=== PATIENT | male | born 1945 | race Hispanic/Latino ===

== ENCOUNTER 2018-04-24 11:29 | Inpatient (IN) | payer MEDICARE, BC ==
[2018-04-24] MEDS ORDERED: Sodium Chloride 0.9% 1,000 ML IV STA (11:39)
[2018-04-24] MEDS ORDERED: cefTRIAXone 1 gm 1 GM/100 ML BAG IVPB STA (11:40)
--- NOTE | 2018-04-24 11:46 | ED PDOC ---
Arrival/HPI - General Time Seen by Provider: 04/24/18 11:34 Historian: EMS - History of Present Illness Narrative History of Present Illness (Text): 04/24/18 11:40 72 year old male, whose PMH includes CVA x3, coronary stents, and diabetes, who is brought in to the emergency department via EMS, s/p being noted for having generalized confusion by . Per EMS, patient was on his normal state at 5 AM , but the reports he was getting more confused as time passed. EMS also notes patient has no slurred speech, but was positive for generalized confusion and inappropriate words. upon arrival, pt noted to be febrile, responds to some questions approrpirately. no focal deficit noted. 04/25/18 11:06 Time/Duration: Prior to Arrival Symptom Onset: Sudden Symptom Course: Worsening Context: Home Past Medical History - Provider Review Nursing Documentation Reviewed: Yes - Tetanus Immunization Tetanus Immunization: Unknown - Cardiac Hx Cardiac Disorders: Yes - Pulmonary Hx Respiratory Disorders: No Hx Asthma: No Hx Bronchitis: No Hx Chronic Obstructive Pulmonary Disease (COPD): No Hx Emphysema: No Hx Pneumonia: No Hx Respiratory Aspiration: No Hx Respiratory Tract Infection: No Hx Sleep Apnea: No - Neurological Hx Neurological Disorder: Yes (syncope) HX Cerebrovascular Accident: Yes (September 2012) Other/Comment: x3 cva's last one 2013 - HEENT Hx HEENT Disorder: No Hx Blind: No Hx Cataracts: No Hx Deafness: No Hx Difficulty Chewing: No Hx Epistaxis: No Hx Glaucoma: No Hx Macular Degeneration: No - Renal Hx Renal Disorder: No Hx Dialysis: No Hx Kidney Stones: No Hx Neurogenic Bladder: No Hx Pyelonephritis: No Hx Renal Cancer: No Hx Renal Failure: No - Endocrine/Metabolic Hx Diabetes Mellitus Type 2: Yes - Hematological/Oncological Hx Blood Disorders: No Hx AIDS: No Hx Anemia: No Hx Cancer: No Hx Chemotherapy: No Hx Cirrhosis: No Hx Hepatitis A: No Hx Hepatitis B: No Hx Hepatitis C: No Hx Metastasis: No Hx Shingles: No Hx Unexplained Bleeding: No - Integumentary Hx Dermatological Disorder: No Hx Basal Cell Carcinoma: No Hx Eczema: No Hx Melanoma: No Hx Psoriasis: No Hx Squamous Cell Carcinoma: No Other/Comment: Scars noted on chest - Musculoskeletal/Rheumatological Hx Falls: Yes (in the past) - Gastrointestinal Hx Gastrointestinal Disorders: Yes Hx Colostomy: No Hx Crohn's Disease: No Hx Diverticulitis: No Hx Gall Bladder Disease: No Hx Gastroesophageal Reflux: Yes Hx Gastrointestinal Ulcer: Yes Hx Ileostomy: No Hx Liver Failure: No Hx Pancreatitis: No HX Swallowing Problems: No - Genitourinary/Gynecological Hx Genitourinary Disorders: Yes Hx Hematuria: No Hx Incontinence: Yes Hx Prostate Problems: Yes (bph cysto 06/2013) Hx Sexually Transmitted Diseases: No Hx Urinary Tract Infection: No - Psychiatric Hx Anxiety: Yes Hx Emotional Abuse: No Hx Physical Abuse: No Hx Substance Use: No - Surgical History Hx Coronary Stent: Yes (ptca 2000) Other/Comment: left knee sx shatered left patella 01/2013 pt had passed out and landed on his left knee as per kavya scott green light laser 04/05/2014 - Anesthesia Hx Anesthesia Reactions: No Hx Malignant Hyperthermia: No - Suicidal Assessment Feels Threatened In Home Enviroment: No Family/Social History Family/Social History: Unknown Family HX Smoking Status: Former Smoker Hx Alcohol Use: No Hx Substance Use: No Hx Substance Use Treatment: No Allergies/Home Meds Allergies/Adverse Reactions: Allergies No Known Allergies Allergy (Verified 04/24/18 11:53) Home Medications: Home Meds Medication Instructions Recorded Confirmed Celecoxib [Celebrex] 200 mg PO DAILY 12/28/12 04/24/18 Simvastatin 40 mg PO DAILY 01/04/13 04/24/18 Cyclobenzaprine HCl [Flexeril] 10 mg PO DAILY 04/04/14 04/24/18 Escitalopram [Lexapro] 10 mg PO DAILY 04/04/14 04/24/18 Tamsulosin [Flomax] 0.4 mg PO DAILY 04/04/14 04/24/18 Aspirin [Ecotrin] 81 mg PO DAILY 12/24/15 04/24/18 Clopidogrel [Plavix] 75 mg PO DAILY 12/24/15 04/24/18 Dutasteride [Avodart] 0.5 mg PO DAILY 12/24/15 04/24/18 Vitamin E [Vitamin E] 400 iu PO DAILY 12/24/15 04/24/18 Metoprolol Tartrate [Lopressor] 12.5 mg PO DAILY 01/16/16 04/24/18 Multivitamin/Iron/Folic Acid 1 tab PO DAILY 06/18/18 06/18/18 [Centrum Adults Tablet] Review of Systems - Review of Systems Systems not reviewed;Unavailable: Altered Mental Status Physical Exam Vital Signs Reviewed: Yes Vital Signs Temp Pulse Resp BP Pulse Ox 04/24/18 16:46 86 18 140/87 99 04/24/18 16:38 102.6 F H 04/24/18 16:29 84 19 141/64 95 04/24/18 16:05 103.2 F H 04/24/18 15:41 103.2 F H 04/24/18 14:07 99.7 F H 80 21 163/81 H 96 04/24/18 12:42 101.5 F H 04/24/18 11:54 70 19 94 L 04/24/18 11:47 101.5 F H 74 18 141/84 96 Temperature: Febrile Blood Pressure: Normal Pulse: Regular Respiratory Rate: Normal Appearance: Positive for: Non-Toxic Pain Distress: None Finger Stick Blood Glucose: 218 - Systems Exam Head: Present: Atraumatic, Normocephalic Pupils: Present: PERRL Extroacular Muscles: Present: EOMI Conjunctiva: Present: Normal Medical Decision Making ED Course and Treatment: 04/24/18 Impression: sepsis/ams Plan: -- EKG -- CT Head -- Chest X-ray --Labs -- Ceftraxone -- Urinalysis -- Reassess and disposition Progress Notes: EKG: Ordered, reviewed, and independently interpreted the EKG. Rate : 71 BPM Rhythm : NSR Interpretation : RBBB 04/24/18 12:20 Chest X-ray: Creator : Hank Mcdonnell MD COMPARISON: 01/20/2016 FINDINGS: LUNGS: No active pulmonary disease.PLEURA:No significant pleural effusion identified, no pneumothorax apparent. CARDIOVASCULAR: Normal. OSSEOUS STRUCTURES: No significant abnormalities. VISUALIZED UPPER ABDOMEN: Normal. OTHER FINDINGS: None. IMPRESSION: No active disease. 04/24/18 14:[address]: Creator : Hank Mcdonnell MD FINDINGS: HEMORRHAGE: No intracranial hemorrhage. BRAIN: No mass effect or edema. There is an old lacunar infarct in the right basal ganglia measuring 4 x 11 mm VENTRICLES: Unremarkable. No hydrocephalus. CALVARIUM: Unremarkable. PARANASAL SINUSES: Unremarkable as visualized. No significant inflammatory changes. MASTOID AIR CELLS: Unremarkable as visualized. No inflammatory changes. OTHER FINDINGS: None. IMPRESSION: No acute findings 04/24/18 14:35 CT abdomen and pelvis: Creator : Hank Mcdonnell MD COMPARISON: CT 01/19/2016 LOWER THORAX: Unremarkable. LIVER: Unremarkable. No gross lesion or ductal dilatation. GALLBLADDER AND BILE DUCTS: Unremarkable. PANCREAS: Unremarkable. No gross lesion or ductal dilatation. SPLEEN: Unremarkable. ADRENALS: Unremarkable. No mass. KIDNEYS AND URETERS: Unremarkable. No hydronephrosis. No solid mass. VASCULATURE: Unremarkable. No aortic aneurysm. BOWEL: There is diverticulosis with mural thickening in the sigmoid colon. There is no evidence of acute diverticulitis APPENDIX: Normal appendix. PERITONEUM: Unremarkable. No free fluid. No free air. LYMPH NODES: Unremarkable. No enlarged lymph nodes. BLADDER:Unremarkable. REPRODUCTIVE: Unremarkable. BONES: No acute fracture. OTHER FINDINGS: None. IMPRESSION: There is diverticulosis with mural thickening in the sigmoid colon. There is no evidence of acute diverticulitis 04/25/18 11:04 upon reassesemtn cellultis noted in left inginal region. low suspciion for nec fac, as na normal, cr normal vitals stable, however eval by dr mcdonald bedside agrees with current managment. accepted by dr fisher. - Lab Interpretations Lab Results: 04/24/18 11:49 04/24/18 11:49 Lab Results 04/24/18 14:21: Urine Color Yellow, Urine Appearance Clear, Urine pH 8.5, Ur Specific [place] 1.015, Urine Protein Trace H, Urine Glucose (UA) 250 H, Urine Ketones 15 H, Urine Blood Negative, Urine Nitrate Negative, Urine Bilirubin Negative, Urine Urobilinogen 0.2, Ur Leukocyte Esterase Negative, Urine RBC 0 - 2, Urine WBC 0 - 2, Ur Epithelial Cells 0 - 2, Urine Bacteria Few 04/24/18 11:49: Sodium 139, Chloride 98, Potassium 4.3, Carbon Dioxide 27, Anion Gap 19, BUN 21, Creatinine 0.5 L, Est GFR ( Amer) > 60, Est GFR ( Non-Af Amer) > 60, Random Glucose 235 H, Calcium 9.7, Magnesium 1.5 L, Total Bilirubin 0.7, AST 27, ALT 33, Alkaline Phosphatase 90, Lactate Dehydrogenase 511, Total Creatine Kinase 71, Troponin I < 0.01, Total Protein 7.6, Albumin 4.7 , Globulin 2.9, Albumin/Globulin Ratio 1.6 04/24/18 11:49: PT 12.5, INR 1.09 H, APTT 20.9 L 04/24/18 11:49: WBC 13.0 H D, RBC 5.03, Hgb 16.1, Hct 45.7, MCV 90.9, MCH 32.0, MCHC 35.2, RDW 13.0, Plt Count 180, MPV 11.0, Gran % 91.5 H, Lymph % (Auto) 4.4 L, Chase % (Auto) 3.8, Eos % (Auto) 0.1 L, Baso % (Auto) 0.2, Gran # 11.86 H, Lymph # (Auto) 0.6 L, Chase # (Auto) 0.5, Eos # (Auto) 0.0, Baso # (Auto) 0.03, Neutrophils % (Manual) 89 H, Band Neutrophils % 3 H, Lymphocytes % (Manual) 2 L , Monocytes % (Manual) 6, Platelet Evaluation Normal 04/24/18 11:49: pO2 36, VBG pH 7.44 H, VBG pCO2 41.0, VBG HCO3 27.8, VBG Total CO2 29.1 H, VBG O2 Sat (Calc) 75.8 H, VBG Base Excess 3.3 H, VBG Potassium 4.6, Sodium 135.0, Chloride 99.0, Glucose 250 H, Lactate 3.4 H, FiO2 21.0, Venous Blood Potassium 4.6 I have reviewed the lab results: Yes - RAD Interpretation Radiology Orders: 04/24/18 11:39 CHEST PORTABLE [RAD] Stat 04/24/18 11:40 HEAD W/O CONTRAST [CT] Stat 04/24/18 12:02 ABD & PELVIS IV CONTRAST ONLY [CT] Stat Quality Assurance Practice Manager: Radiologist - EKG Interpretation Interpreted by ED Physician: Yes Type: 12 lead EKG - Medication Orders Current Medication Orders: Acetaminophen (Tylenol 325mg Tab) 650 mg PO Q6H PRN PRN Reason: Headache Last Admin: 04/25/18 09:06 Dose: 650 mg MAR Pain/Vitals Document 04/25/18 09:06 RT (Rec: 04/25/18 09:06 RT [id number]) Pain Reassessment Is This A Pain ReAssessment? 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 Aspirin (Ecotrin) 81 mg PO DAILY [facility] Last Admin: 04/25/18 09:06 Dose: 81 mg Atorvastatin Calcium (Lipitor) 20 mg PO DIN DORETHA Clopidogrel Bisulfate (Plavix) 75 mg PO DAILY [facility] Last Admin: 04/25/18 09:06 Dose: 75 mg Escitalopram Oxalate (Lexapro) 10 mg PO DAILY [facility] Last Admin: 04/25/18 09:06 Dose: 10 mg Dextrose/Sodium Chloride (Dextrose 5%/0.45% Ns 1000 Ml) 1,000 mls @ 100 mls/hr IV .Q10H [facility] Last Admin: 04/25/18 05:58 Dose: Cefepime HCl (Maxipime 1gm) 1 gm in 100 mls @ 100 mls/hr IVPB Q8 [facility] PRN Reason: Protocol Last Admin: 04/25/18 05:51 Dose: 100 mls/hr eMAR Start Stop Document 04/25/18 05:51 SRE (Rec: 04/25/18 05:51 SRE [id number]) Intravenous Solution Start Date 04/25/18 Start Time 05:51 Vancomycin HCl (Vancomycin 1gm) 1 gm in 250 mls @ 167 mls/hr IVPB Q12H [facility] PRN Reason: Protocol Last Admin: 04/25/18 09:08 Dose: 167 mls/hr eMAR Start Stop Document 04/25/18 09:08 RT (Rec: 04/25/18 09:08 RT [id number]) Intravenous Solution Start Date 04/25/18 Start Time 09:08 Magnesium Oxide (Mag-Ox) 400 mg PO DAILY [facility] Last Admin: 04/25/18 09:06 Dose: 400 mg Metoprolol Tartrate (Lopressor) 12.5 mg PO DAILY [facility] Last Admin: 04/25/18 09:05 Dose: 12.5 mg Multivitamins/Minerals (Therapeutic-M Tab) 1 tab PO DAILY [facility] Last Admin: 04/25/18 09:06 Dose: 1 tab Non-Formulary Medication (Celecoxib [Celebrex]) 200 mg PO DAILY [facility] Last Admin: 04/25/18 09:07 Dose: Non-Formulary Medication (Dutasteride [Avodart]) 0.5 mg PO DAILY [facility] Last Admin: 04/25/18 09:07 Dose: Tamsulosin HCl (Flomax) 0.4 mg PO DAILY [facility] Last Admin: 04/25/18 09:06 Dose: 0.4 mg Vitamin E (Vitamin E 400 Units Cap) 400 intlu PO DAILY [facility] Last Admin: 04/25/18 10:50 Dose: 400 intlu Discontinued Medications Acetaminophen (Tylenol 325mg Tab) 975 mg PO STAT STA Stop: 04/24/18 12:06 Last Admin: 04/24/18 12:22 Dose: Not Given Non-Admin Reason: NPO Acetaminophen (Tylenol 650 Mg Supp) 650 mg RC STAT STA Stop: 04/24/18 12:29 Last Admin: 04/24/18 12:42 Dose: 650 mg MAR Pain/Vitals Document 04/24/18 12:42 [email or web address] (Rec: 04/24/18 12:[email or web address] [id number]) Vitals Temperature (97.6 F-99.6 F) 101.5 F Temperature Source Rectal Acetaminophen (Tylenol 650 Mg Supp) 650 mg RC STAT STA Stop: 04/24/18 15:43 Last Admin: 04/24/18 16:05 Dose: 650 mg MAR Pain/Vitals Document 04/24/18 16:05 [email or web address] (Rec: 04/24/18 16:[email or web address] [id number]) Vitals Temperature (97.6 F-99.6 F) 103.2 F Temperature Source Rectal Acetaminophen (Tylenol 120mg Supp) 120 mg RC Q6 PRN PRN Reason: Fever >100.4 F Last Admin: 04/24/18 20:52 Dose: 120 mg MAR Pain/Vitals Document 04/24/18 20:52 SRE (Rec: 04/24/18 20:52 SRE [id number]) Pain Reassessment Is This A Pain ReAssessment? No Sleep Is patient sleeping during reassessment? No Presence of Pain Presence of Pain No Vitals Temperature (97.6 F-99.6 F) 101.1 F Temperature Source Rectal Re-Assess: MAR Pain/Vitals Document 04/24/18 23:00 SRE (Rec: 04/24/18 23:26 SRE [id number]) Pain Reassessment Is This A Pain ReAssessment? No Sleep Is patient sleeping during reassessment? Yes Vitals Temperature (97.6 F-99.6 F) 100 F Temperature Source Rectal Sodium Chloride (Sodium Chloride 0.9%) 1,000 mls @ 999 mls/hr IV .Q1H1M STA Stop: 04/24/18 12:39 Last Admin: 04/24/18 12:16 Dose: 999 mls/hr eMAR Start Stop Document 04/24/18 12:16 [email or web address] (Rec: 04/24/18 12:16 [email or web address] [facility] [id number]) Intravenous Solution Start Date 04/24/18 Start Time 12:16 End Date 04/24/18 Ceftriaxone Sodium (Rocephin 1 Gram Ivpb) 1 gm in 100 mls @ 100 mls/hr IVPB STAT STA PRN Reason: Protocol Stop: 04/24/18 12:39 Last Admin: 04/24/18 12:17 Dose: 100 mls/hr eMAR Start Stop Document 04/24/18 12:17 [email or web address] (Rec: 04/24/18 12:17 [email or web address] [facility] [id number]) Intravenous Solution Start Date 04/24/18 Start Time 12:17 Vancomycin HCl (Vancomycin 1gm) 1 gm in 250 mls @ 167 mls/hr IVPB STAT STA PRN Reason: Protocol Stop: 04/24/18 16:10 Last Admin: 04/24/18 16:06 Dose: 167 mls/hr eMAR Start Stop Document 04/24/18 16:06 [email or web address] (Rec: 04/24/18 16:06 [email or web address] [id number]) Intravenous Solution Start Date 04/24/18 Start Time 16:06 End Date 04/24/18 Pneumococcal Polyvalent Vaccine (Pneumovax 23 Vaccine) 0.5 ml IM .ONCE ONE Stop: 04/24/18 18:34 Last Admin: 04/24/18 22:10 Dose: MAR Immunization Data Document 04/24/18 22:10 SRE (Rec: 04/25/18 05:28 SRE [id number]) Immunization Data Vaccine Information Sheet Given No Immunization Registry Document 04/24/18 22:10 SRE (Rec: 04/25/18 05:28 SRE [id number]) Immunization Registry Consent Date 10/10/17 - Scribe Statement The provider has reviewed the documentation as recorded by the Scribe Smitha Shaw Provider Scribe Attestation: All medical record entries made by the Scribe were at my direction and personally dictated by me. I have reviewed the chart and agree that the record accurately reflects my personal performance of the history, physical exam, medical decision making, and the department course for this patient. I have also personally directed, reviewed, and agree with the discharge instructions and disposition. Disposition/Present on Arrival - Present on Arrival Any Indicators Present on Arrival: No History of DVT/PE: No History of Uncontrolled Diabetes: No Urinary Catheter: Yes History Surgical Site Infection Following: None - Disposition Have Diagnosis and Disposition been Completed?: Yes Diagnosis: Sepsis, Cellulitis Disposition: HOSPITALIZED Disposition Time: 06:00 Patient Problems: Current Active Problems Problem Status Onset Cellulitis Acute Sepsis Acute Condition: FAIR
[2018-04-24 12:00] LABS: VENOUS BLOOD GAS BASE EXCESS 3.3 mmol/L (0.0-2.0); VENOUS BLOOD GAS PO2 36 mm/Hg (30-55); VENOUS BLOOD PH 7.44 (7.32-7.43)
[2018-04-24 12:04] LABS: BASO # 0.03 K/mm3 (0.0-2.0); BASO % 0.2 % (0.0-3.0); EOS % 0.1 % (1.5-5.0); GRAN # 11.86 (1.4-6.5); GRAN % 91.5 % (50.0-68.0); HEMOGLOBIN 16.1 g/dL (14.0-18.0); LYMPH # 0.6 (1.2-3.4); LYMPH % 4.4 % (22.0-35.0); MEAN CELL VOLUME 90.9 fl (80.0-105.0); MEAN CORPUSCULAR HGB CONC 35.2 g/dl (31.0-37.0); MONO # 0.5 (0.1-0.6); MONO % 3.8 % (1.0-6.0); PLATELET COUNT 180 10^3/uL (120.0-450.0); RBC 5.03 10^6/uL (3.5-6.1)
[2018-04-24 12:11] LABS: ALB/GLOB RATIO 1.6 (1.1-1.8); ALBUMIN 4.7 g/dL (3.0-4.8); ALT/SGPT 33 U/L (7-56); AST/SGOT 27 U/L (17-59); BLOOD UREA NITROGEN 21 mg/dL (7-21); CALCIUM 9.7 mg/dL (8.4-10.5); GFR AFRICAN-AMERICAN > 60; GFR NON-AFRICAN AMERICAN > 60
--- NOTE | 2018-04-24 12:19 | RAD ---
HISTORY: sepsis COMPARISON: 01/20/2016 FINDINGS: LUNGS: No active pulmonary disease. PLEURA: No significant pleural effusion identified, no pneumothorax apparent. CARDIOVASCULAR: Normal. OSSEOUS STRUCTURES: No significant abnormalities. VISUALIZED UPPER ABDOMEN: Normal. OTHER FINDINGS: None. IMPRESSION: No active disease.
[2018-04-24 12:22] LABS: TROPONIN I < 0.01 ng/mL
[2018-04-24 12:23] LABS: INR 1.09 (0.93-1.08); PARTIAL THROMBOPLASTIN TIME 20.9 Seconds (25.1-36.5); PROTHROMBIN TIME 12.5 SECONDS (9.4-12.5)
[2018-04-24 12:25] LABS: BAND 3 % (0-2); LYMPHOCYTE 2 % (22.0-35.0); MONOCYTE 6 % (1.0-6.0); NEUTROPHIL 89 % (50.0-70.0); PLATELET ESTIMATE NORMAL (NORMAL)
[2018-04-24] MEDS ORDERED: Iohexol 350 MG/100 ML VIAL ONE (13:11)
--- NOTE | 2018-04-24 14:02 | CT ---
PROCEDURE: CT HEAD WITHOUT CONTRAST. HISTORY: ams COMPARISON: None available. TECHNIQUE: Axial computed tomography images were obtained through the head/brain without intravenous contrast. Radiation dose: Total exam DLP = 956 mGy-cm. This CT exam was performed using one or more of the following dose reduction techniques: Automated exposure control, adjustment of the mA and/or kV according to patient size, and/or use of iterative reconstruction technique. FINDINGS: HEMORRHAGE: No intracranial hemorrhage. BRAIN: No mass effect or edema. There is an old lacunar infarct in the right basal ganglia measuring 4 x 11 mm VENTRICLES: Unremarkable. No hydrocephalus. CALVARIUM: Unremarkable. PARANASAL SINUSES: Unremarkable as visualized. No significant inflammatory changes. MASTOID AIR CELLS: Unremarkable as visualized. No inflammatory changes. OTHER FINDINGS: None. IMPRESSION: No acute findings
[2018-04-24 14:32] LABS: PH,URINE 8.5 (4.7-8.0); URINE BILIRUBIN NEGATIVE (NEGATIVE); URINE BLOOD NEGATIVE (NEGATIVE); URINE GLUCOSE (UA) 250 mg/dL (NEGATIVE); URINE LEUKOCYTE ESTERASE NEGATIVE Leu/uL (NEGATIVE); URINE PROTEIN TRACE mg/dL (<30 mg/dL); URINE UROBILINOGEN 0.2 E.U./dL (<1 E.U./dL)
[2018-04-24 14:35] LABS: URINE APPEARANCE CLEAR (CLEAR); URINE COLOR YELLOW (YELLOW)
--- NOTE | 2018-04-24 14:35 | CT ---
PROCEDURE: CT Abdomen and Pelvis with contrast HISTORY: sepsis, abd pain COMPARISON: CT 01/19/2016 TECHNIQUE: Contrast dose: 100 cc of Omni 350 Radiation dose: Total exam DLP = 771 mGy-cm. This CT exam was performed using one or more of the following dose reduction techniques: Automated exposure control, adjustment of the mA and/or kV according to patient size, and/or use of iterative reconstruction technique. FINDINGS: LOWER THORAX: Unremarkable. LIVER: Unremarkable. No gross lesion or ductal dilatation. GALLBLADDER AND BILE DUCTS: Unremarkable. PANCREAS: Unremarkable. No gross lesion or ductal dilatation. SPLEEN: Unremarkable. ADRENALS: Unremarkable. No mass. KIDNEYS AND URETERS: Unremarkable. No hydronephrosis. No solid mass. VASCULATURE: Unremarkable. No aortic aneurysm. BOWEL: There is diverticulosis with mural thickening in the sigmoid colon. There is no evidence of acute diverticulitis APPENDIX: Normal appendix. PERITONEUM: Unremarkable. No free fluid. No free air. LYMPH NODES: Unremarkable. No enlarged lymph nodes. BLADDER: Unremarkable. REPRODUCTIVE: Unremarkable. BONES: No acute fracture. OTHER FINDINGS: None. IMPRESSION: There is diverticulosis with mural thickening in the sigmoid colon. There is no evidence of acute diverticulitis
[2018-04-24] MEDS ORDERED: Vancomycin 1gm in NS 250ml 1 GM/250 ML BAG IVPB STA (14:41)
[2018-04-24 14:47] LABS: URINE BACTERIA FEW (NEG); URINE EPITHELIAL CELLS 0 - 2 /hpf (0-5); URINE RBC 0 - 2 /hpf (0-2); URINE WBC 0 - 2 /hpf (0-6)
[2018-04-24 15:33] LABS: VENOUS BLOOD GAS BASE EXCESS 2.2 mmol/L (0.0-2.0); VENOUS BLOOD GAS PO2 46 mm/Hg (30-55); VENOUS BLOOD PH 7.41 (7.32-7.43)
--- NOTE | 2018-04-24 16:20 | PCM.URO ---
Urology Progress Note - Objective Lab Studies: Reviewed (will discuss gu plans) Lab Results Last 24 Hours: Laboratory Results - last 24 hr 04/24/18 15:28 pO2 46 VBG pH 7.41 VBG pCO2 43.0 VBG HCO3 27.3 VBG Total CO2 28.6 H VBG O2 Sat (Calc) 84.2 H VBG Base Excess 2.2 H VBG Potassium 4.0 Sodium 135.0 Chloride 98.0 Glucose 210 H Lactate 2.5 H FiO2 21.0 Venous Blood Potassium 4.0 Vital Signs: Vital Signs - 24 hr 04/24/18 04/24/18 15:41 16:05 Temperature 103.2 F H 103.2 F H
--- NOTE | 2018-04-24 16:55 | PCM.SEPTIC ---
Sepsis Progress Note - Reassessment Type Date of Evaluation: 04/24/18 Time of Evaluation: 16:54 Reassessment Type: Non-invasive reassessment - Non Invasive Reassessment Were the most recent vital sign reviewed: Yes Vital Sign (Latest): Temp Pulse Resp BP Pulse Ox 102.6 F H 86 18 140/87 99 04/24/18 16:38 04/24/18 16:46 04/24/18 16:46 04/24/18 16:46 04/24/18 16:46 Cardiovascular: Yes: Regular Rate, Rhythm Respiratory: Yes: Normal Breath Sounds Capillary Refill: Normal (Less than 2 sec) Pulses: Normal Radial, Normal Dorsalis Pedis, Normal Posterior Tibialis Skin: Warm, Dry
--- NOTE | 2018-04-24 17:09 | CARD ---
APPROVED REPORT EKG Measurement Heart [id number] <Conclusion> Normal sinus rhythm Pulmonary disease pattern Right bundle branch block Left anterior fascicular block Bifascicular block Septal infarct, age undetermined Abnormal ECG
[2018-04-24 18:32] VITALS: BMI 27.4
[2018-04-24] MEDS ORDERED: Pneumococcal 23-Valent Vaccine IM ONE (18:33)
[2018-04-24] MEDS: Dextrose 5%/0.45% NS 1,000 ML IV SCH (20:52)
[2018-04-24] MEDS: Vancomycin 1gm in NS 250ml 1 GM/250 ML BAG IVPB SCH (22:00)
[2018-04-24] MEDS: Cefepime 1gm in NS 100ml 1 GM/100 ML BAG IVPB SCH (23:09)
[2018-04-25] MEDS: Cefepime 1gm in NS 100ml 1 GM/100 ML BAG IVPB SCH ×3 (05:51→21:03)
[2018-04-25] MEDS: Dextrose 5%/0.45% NS 1,000 ML IV SCH ×3 (05:58→15:37)
[2018-04-25 06:23] LABS: BASO # 0.02 K/mm3 (0.0-2.0); BASO % 0.2 % (0.0-3.0); GRAN # 8.48 (1.4-6.5); LYMPH # 1.4 (1.2-3.4); LYMPH % 12.7 % (22.0-35.0); MEAN CELL VOLUME 91.3 fl (80.0-105.0); MEAN CORPUSCULAR HEMOGLOBIN 31.1 pg (25.0-35.0); MEAN CORPUSCULAR HGB CONC 34.1 g/dl (31.0-37.0); MEAN PLATELET VOLUME 11.4 fl (7.0-11.0); MONO # 1.4 (0.1-0.6); MONO % 12.1 % (1.0-6.0); RBC 4.5 10^6/uL (3.5-6.1); RED CELL DISTRIBUTION WIDTH 13.2 % (11.5-14.5); WHITE BLOOD COUNT 11.3 10^3/ul (4.5-11.0)
[2018-04-25 07:22] LABS: ALB/GLOB RATIO 1.3 (1.1-1.8); ALBUMIN 3.9 g/dL (3.0-4.8); ALT/SGPT 31 U/L (7-56); AST/SGOT 24 U/L (17-59); BLOOD UREA NITROGEN 26 mg/dL (7-21); CALCIUM 8.4 mg/dL (8.4-10.5); GFR AFRICAN-AMERICAN > 60; GFR NON-AFRICAN AMERICAN > 60
[2018-04-25] MEDS: Multivitamin With Minerals Tab PO SCH (09:06)
[2018-04-25] MEDS: Magnesium Oxide 400 mg Tab UD PO SCH (09:06)
[2018-04-25] MEDS: Non Formulary Medication (Celecoxib [Celebrex] 200 MG) PO SCH (09:07)
[2018-04-25] MEDS: Vancomycin 1gm in NS 250ml 1 GM/250 ML BAG IVPB SCH ×2 (09:08→21:03)
[2018-04-25] MEDS ORDERED: cefTRIAXone 1 gm 1 GM/100 ML BAG IVPB SCH (10:00)
--- NOTE | 2018-04-25 10:19 | HP ---
HISTORY OF PRESENT ILLNESS: The patient is a 72-year-old male, who was admitted to the [facility] with the diagnoses of sepsis and confusion. The patient was apparently looking and feeling well in the earlier hours as per the patient's ; however, he became more confused and less responsive. The called the squad. The patient was brought to the emergency room, evaluated and admitted. PAST MEDICAL HISTORY: He is known to have a past medical history for diabetes mellitus, which is diet controlled; he underwent PTCA in 1997, followed by CABG in 1998. He had suffered a cerebrovascular accident in 2015 and in 2012. He has a history of COPD, diet-controlled diabetes mellitus, benign prostatic hypertrophy, gastroesophageal reflux disease and hearing loss. MEDICATIONS: His medications at the time of admission included Plavix 75 mg once a day, ranitidine, Flomax, Avodart, Ecotrin, Lexapro, Lasix, simvastatin and Fioricet. ALLERGIES: HE HAS NO KNOWN MEDICAL ALLERGIES. SOCIAL HISTORY: Has been a nonsmoker since 1979. Occasionally drinks alcohol. Has approximately 3 cups of coffee a day. PHYSICAL EXAMINATION: GENERAL: The patient is awake, but he is not a good historian. He cannot remember why he is in the hospital or how he got to the hospital. HEENT: Examination of the head, eyes, ears, nose and throat is unremarkable. NECK: Supple with no lymphadenopathy. No goiter. LUNGS: Clear anteriorly and laterally. HEART: Regular. ABDOMEN: Soft and nontender. EXTREMITIES: Free of cyanosis, clubbing or edema. SKIN: Warm to touch. There is a cellulitis in the left groin proximal thigh area. NEUROLOGICAL: The patient is confused. There are no focal neurological signs, but he consistently answers I do not know to questions. LABORATORY STUDIES: Show the white blood cell count to be elevated at 13,000. He is febrile at 101.5 degrees Fahrenheit. The remainder of his laboratories are pending. IMPRESSION: The patient is to be admitted. He is started on intravenous Rocephin for the cellulitis. Dr. Marmolejo, his urologist is called to evaluate the cellulitis of the groin. We are also asking Dr. Botello, the Infectious Disease specialist to consult on the patient. The patient will be reevaluated in the morning. Hank Wagner MD [facility] # [id number]
--- NOTE | 2018-04-25 14:02 | CON ---
DATE: 04/25/2018 LOCATION: The patient is in bed in room 261, bed 1. CHIEF COMPLAINT: Temperature of 103 x1 day duration. HISTORY OF PRESENT ILLNESS: This is a 72-year-old male with past medical history significant for diabetes mellitus, coronary artery disease, cerebrovascular accident, chronic obstructive lung disease, BPH, GERD, hard of hearing, high cholesterol, myocardial infarction, who was admitted yesterday on 04/24/2018 with diagnosis of sepsis and cellulitis. Infectious Disease consultation requested. The patient states that he was perfectly fine until acutely he had fevers and he became confused and he was seen in the emergency room yesterday morning. Having generalized confusion. The patient's states that he is back to his normal state and acute confusion came on acutely. The patient has no slurred speech. Have an occasional weakness, although he says no new joint pain, no chest pain, no abdominal pain, no dysuria or frequency. He has intermittent headaches, he states it is minimal. He states that he is back to himself. PAST MEDICAL HISTORY: Significant for diabetes mellitus, coronary artery disease, myocardial infarction, high cholesterolemia, hyperlipidemia, cerebrovascular accident, chronic obstructive lung disease, BPH, GERD, hard of hearing. PAST SURGICAL HISTORY: Significant for a PTCA, coronary artery bypass graft and defibrillator. REVIEW OF SYSTEMS: Thirteen-point review of systems performed. MEDICATIONS AT HOME: Include the patient to be on vitamins and statin and metoprolol, Lexapro and Avodart, Flexeril, Ecotrin. PHYSICAL EXAMINATION: GENERAL: The patient is in bed, no acute distress, nontoxic. VITAL SIGNS: Temperature of 98, T-max was 103.2; respiratory rate of 20, it was up to 21; heart rate of 69, it was up to 95. HEENT: Examination of HEENT is unremarkable. NECK: Supple. Lungs: Have decreased breath sounds. HEART: Normal S1, S2. ABDOMEN: Soft, nontender. SKIN: There is a chronic rash in the left groin. The patient states that it has been there over 8 months. No evidence of an acute infection there. skin. Not warm to touch. No acute changes. It is chronic dry rash. EXTREMITIES: Examination of lower extremities within normal limit. LABORATORY DATA: Laboratory examination reveals a white count of 13,000, hemoglobin of 16, platelets of 180, 91% granulocytosis. Coagulation is noted. The chemistries revealed the patient's BUN is 26, creatinine of 0.6. LFTs are normal. Urinalysis is unremarkable, 0-2 wbc's. Influenza serology is negative. Microbiology reveals the blood cultures are negative. Urine cultures are no growth. The patient did have Klebsiella in the urine on 12/15/2013, which was pansensitive Klebsiella, apparently two different Klebsiella were present. The patient had a chest x-ray, which was reported to be negative. CAT scan of the abdomen and pelvis, which was negative. CAT scan of the head, which is negative. ASSESSMENT AND PLAN: A 72-year-old male with diabetes mellitus, coronary artery disease, myocardial infarction, cerebrovascular accident, high cholesterol, hyperlipidemia, chronic obstructive lung disease, benign prostatic hypertrophy, gastroesophageal reflux disease, hard of hearing, history of percutaneous transluminal coronary angioplasty and coronary artery bypass graft and defibrillator, now with a temperature of 103, tachycardia, leukocytosis and no evidence of acute infection. #1 is systemic inflammatory response syndrome with negative CAT scan of the abdomen, negative urinalysis, negative blood cultures, urine cultures and negative chest x-ray. No obvious source for the fever and leukocytosis. At this time, the patient is currently on vancomycin and cefepime. Pending the panculture and initial workup, we will make further recommendations. The patient appears to be back to his baseline mental status at this point as per nursing staff. Osmany Botello MD
[2018-04-25] MEDS: Pantoprazole 40 mg EC Tab PO SCH (16:04)
--- NOTE | 2018-04-26 01:04 | PN ---
DATE: 04/25/2018 SUBJECTIVE: The patient was seen this Tuesday in room 261, bed 1. He is in bed, awake, alert, comfortable, but mental status does not seem as sharp as his usual state. He speaks clearly and fluently, understands me, answers questions appropriately, but his speech is a bit slow and as is his mentation. PHYSICAL EXAMINATION LUNGS: Show good aeration. HEART: Regular, not tachycardic. ABDOMEN: Soft. Significant scrotal and groin edema and erythema are noted. EXTREMITIES: Lower extremities are slightly swollen and bit reddened also. IMPRESSION: Cellulitis. PLAN: Urology consult appreciated. Continuing IV antibiotics. May consider MRI of the brain as the patient has a history of CVA. Although, his odd mental status may be related to infection as well. We will follow . Josué Wagner MD
[2018-04-26] MEDS: Dextrose 5%/0.45% NS 1,000 ML IV SCH (01:52)
[2018-04-26] MEDS: Cefepime 1gm in NS 100ml 1 GM/100 ML BAG IVPB SCH ×3 (05:24→21:29)
[2018-04-26 05:51] LABS: BASO # 0.02 K/mm3 (0.0-2.0); BASO % 0.2 % (0.0-3.0); EOS % 0.4 % (1.5-5.0); GRAN # 7.21 (1.4-6.5); GRAN % 79.1 % (50.0-68.0); HEMOGLOBIN 13.8 g/dL (14.0-18.0); LYMPH # 0.8 (1.2-3.4); LYMPH % 8.6 % (22.0-35.0); MEAN CELL VOLUME 90.7 fl (80.0-105.0); MEAN CORPUSCULAR HEMOGLOBIN 31.2 pg (25.0-35.0); MEAN CORPUSCULAR HGB CONC 34.4 g/dl (31.0-37.0); MEAN PLATELET VOLUME 11.7 fl (7.0-11.0); MONO # 1.1 (0.1-0.6); MONO % 11.7 % (1.0-6.0); RBC 4.42 10^6/uL (3.5-6.1); WHITE BLOOD COUNT 9.1 10^3/ul (4.5-11.0)
[2018-04-26 06:58] LABS: BLOOD UREA NITROGEN 11 mg/dL (7-21); CALCIUM 8.3 mg/dL (8.4-10.5); GFR AFRICAN-AMERICAN > 60; GFR NON-AFRICAN AMERICAN > 60
--- NOTE | 2018-04-26 08:11 | CARD ---
APPROVED REPORT EKG Measurement Heart [id number] <Conclusion> Normal sinus rhythm Left axis deviation Left ventricular hypertrophy with QRS widening Abnormal ECG
[2018-04-26] MEDS ORDERED: Potassium Chloride 40 mEq/30 ml LIQ UD PO ONE (08:13)
[2018-04-26] MEDS: Vancomycin 1gm in NS 250ml 1 GM/250 ML BAG IVPB SCH ×2 (09:41→21:30)
[2018-04-26] MEDS: Magnesium Oxide 400 mg Tab UD PO SCH (09:42)
[2018-04-26] MEDS: Pantoprazole 40 mg EC Tab PO SCH (09:42)
[2018-04-26] MEDS: Multivitamin With Minerals Tab PO SCH (09:43)
[2018-04-26] MEDS: Non Formulary Medication (Celecoxib [Celebrex] 200 MG) PO SCH (09:45)
--- NOTE | 2018-04-26 12:03 | CON ---
DATE: 04/26/2018 CARDIOLOGY CONSULTATION HISTORY: The patient is a 72-year-old male, who presents with confusion. There is a question of sepsis. The patient's past medical history is notable for history of coronary artery bypass surgery. He underwent a cardiac catheterization in [address] Nicolas in which it was documented that the ejection fraction was 55% with an occluded MONROE to the LAD. However, because of the patient's confusion and combativeness, no attempt at PTCA was done. The treatment decision was to go for medical therapy. Currently, the patient is chest pain free. No shortness of breath. SOCIAL HISTORY AND REVIEW OF SYSTEMS: Free of cardiac symptomatology. PHYSICAL EXAMINATION: VITAL SIGNS: Blood pressure is 134/51, heart rates in the 60s. Normal sinus rhythm. NECK: Negative JVD. LUNGS: Without rales. HEART: Reveals S1, S2. EXTREMITIES: Without edema. LABORATORY DATA: EKG shows normal sinus rhythm with a right bundle-branch block and a left anterior hemiblock. The glucose is 177. Potassium is low, but it has been replaced. Magnesium is okay. Hemoglobin is 13.8. IMPRESSION: 1. Confusion, which is improved. 2. Sepsis. 3. Stable angina. 4. History of coronary artery bypass surgery. 5. Documented occluded left internal mammary artery. 6. Diabetes mellitus. 7. Bifascicular block on electrocardiogram. PLAN: Given these findings, the patient's cardiac status is at baseline. We will discontinue telemetry today. No further cardiac workup is necessary at this time. Mickey Taylor MD
--- NOTE | 2018-04-26 12:13 | PN ---
DATE: 04/26/2018 SUBJECTIVE: The patient is a 72-year-old male who was admitted to the [facility] 2 days ago with diagnoses of sepsis and cellulitis of the left groin area. The patient is known to have a history of diabetes mellitus which is diet-controlled, coronary artery disease, status post coronary artery bypass grafting, status post CVA, history of COPD, BPH, GERD and hearing loss. To date, the patient has been afebrile. His white cell count has been normal. He is being followed by Dr. Botello, the Infectious Disease specialist. He was also seen by Dr. Marmolejo, the urologist. He is being treated with vancomycin and cefepime and is doing very well. He was quite confused over the past 2 days. However, when seen today, he is amazingly awake, alert and oriented. He recognize me and was very lucent. Examination of the head, eyes, ears, nose and throat are unremarkable. The lungs are clear. The heart is regular. He does complain of some chest pain, it is pleuritic in nature. It is exacerbated by palm pressure over the sternum. He admits to belching, however, says this discomfort is different from his usual heart burn feeling. He is afebrile at 97.9 degrees Fahrenheit, blood pressure is 134/51, heart rate is 65. LABORATORY DATA: White blood cell count this morning is 9.1, hemoglobin and hematocrit are 13.8 and 40.1 respectively. Sodium is 141, potassium is 3.3 which has been supplemented. Blood urea nitrogen is 11, creatinine is 0.8 and glucose is 180. A repeat EKG done yesterday showed regular sinus rhythm with left ventricular hypertrophy and left axis deviation. To date, blood cultures and urine cultures have been negative. ASSESSMENT AND PLAN: So, the patient seems to be markedly improved. We will increase his activity, get him out of bed to a chair today. He is about to have his physical therapy evaluation. I do not feel there will be a need for an MRI. Of note, the patient had an event monitor [place] [address] Tubbs. His hospital records show that in 2014, he had an MRI done, however, when I called the MRI department today, they said they could not do an MRI because of the implanted event monitor. Because of the patient's turnaround in mental status, however, I am hoping this will not be needed. Hank Wagner MD
[2018-04-26] MEDS: Sucralfate 1 gm/10 ml Oral Susp UD PO SCH ×3 (17:50→21:28)
--- NOTE | 2018-04-26 20:22 | PN ---
DATE: 04/26/2018 SUBJECTIVE: The patient is in bed, in no acute distress, nontoxic. PHYSICAL EXAMINATION: VITAL SIGNS: The patient's temperature is down to 97 and he has been afebrile now, blood pressure is 130/70, respiratory rate of 18, heart rate of 66. HEENT: Unremarkable. NECK: Supple. LUNGS: Have decreased breath sounds. HEART: Normal S1 and S2. ABDOMEN: Soft, nontender. LABORATORY DATA: Reveals a white count of 9.1, hemoglobin of 13, platelets of 149. Chemistries reveal a BUN of 11, creatinine of 0.5. The patient's procalcitonin is 0.05 and urinalysis is negative. RPR is negative. FTA is negative. Influenza is negative. Microbiology reveals negative blood cultures, negative urine cultures. Dr. Mickey Taylor's consultation is reviewed. Dr. Hank Wagner's progress note is reviewed. The patient had a CAT scan of the abdomen and pelvis, which is unremarkable and a chest x-ray, which is negative. ASSESSMENT AND PLAN: This is a 72-year-old male with diabetes which is diet controlled with coronary artery disease, myocardial infarction, cerebrovascular accident, high cholesterol, hyperlipidemia, chronic obstructive lung disease, benign prostatic hypertrophy, gastroesophageal reflux disease, hard of hearing, history of percutaneous transluminal coronary angioplasty and coronary bypass graft and a defibrillator, who was admitted with temperature of 103 and now with systemic inflammatory response syndrome, negative imaging, negative cultures, leukocytosis and fever resolved, no obvious source for this. The chronic rash on his groin has just been there for a long time and it appears to be chronic in nature and no obvious source. We will recommend continuing the antibiotics at this time. I will follow the patient clinically. Today is day #3 of vancomycin and cefepime. We will complete at least 5-7 days based on his responses. Etiology of the fever is not clear at this time. Osmany Botello MD
[2018-04-27] MEDS: Cefepime 1gm in NS 100ml 1 GM/100 ML BAG IVPB SCH ×2 (05:39→15:03)
[2018-04-27] MEDS: Sucralfate 1 gm/10 ml Oral Susp UD PO SCH ×3 (05:39→16:44)
--- NOTE | 2018-04-27 06:24 | PCM.URO ---
Urology Progress Note - Objective Lab Studies: Reviewed (gu plans ; maintain antibiotics further gu plans to be discussed full note to be dictated) Lab Results Last 24 Hours: Laboratory Results - last 24 hr 04/25/18 04/26/18 04/26/18 13:30 05:30 07:15 Sodium 141 Potassium 3.3 L Chloride 106 Carbon Dioxide 24 Anion Gap 14 BUN 11 Creatinine 0.5 L Est GFR ( Amer) > 60 Est GFR (Non-Af Amer) > 60 POC Glucose (mg/dL) 180 H Random Glucose 177 H Calcium 8.3 L Magnesium T.pallidum Ab (FTA-ABS) Nonreactive 04/26/18 04/26/18 04/26/18 10:59 11:45 16:24 Sodium Potassium Chloride Carbon Dioxide Anion Gap BUN Creatinine Est GFR ( Amer) Est GFR (Non-Af Amer) POC Glucose (mg/dL) 158 H 213 H Random Glucose Calcium Magnesium 1.9 T.pallidum Ab (FTA-ABS) Intake & Output: Intake & Output 04/26/18 04/26/18 04/27/18 06:59 18:59 06:59 Intake Total 1200 180 Balance 1200 180 Weight 178 lb 4.8 oz Intake: IV 1200 Left Hand 1200 Oral 180 Other: # Voids Urine, Voided 400 Vital Signs: Vital Signs - 24 hr 04/26/18 04/26/18 04/26/18 10:00 11:56 17:44 Temperature 97.8 F 97.8 F Pulse Rate 92 H 69 58 L Respiratory 18 18 Rate Blood Pressure 135/70 136/67 O2 Sat by Pulse Oximetry 04/26/18 22:30 Temperature 98.4 F Pulse Rate 69 Respiratory 20 Rate Blood Pressure 137/72 O2 Sat by Pulse 95 Oximetry
[2018-04-27 06:57] LABS: BASO # 0.04 K/mm3 (0.0-2.0); BASO % 0.5 % (0.0-3.0); EOS # 0.1 (0.0-0.7); EOS % 1.8 % (1.5-5.0); GRAN # 5.54 (1.4-6.5); GRAN % 69.8 % (50.0-68.0); HEMOGLOBIN 13.9 g/dL (14.0-18.0); LYMPH # 1.3 (1.2-3.4); LYMPH % 16.1 % (22.0-35.0); MEAN CELL VOLUME 90.6 fl (80.0-105.0); MEAN CORPUSCULAR HGB CONC 34.2 g/dl (31.0-37.0); MEAN PLATELET VOLUME 10.4 fl (7.0-11.0); MONO # 0.9 (0.1-0.6); MONO % 11.8 % (1.0-6.0); RBC 4.49 10^6/uL (3.5-6.1); WHITE BLOOD COUNT 7.9 10^3/ul (4.5-11.0)
[2018-04-27 07:10] LABS: ALB/GLOB RATIO 1.4 (1.1-1.8); ALBUMIN 3.9 g/dL (3.0-4.8); ALT/SGPT 32 U/L (7-56); AST/SGOT 31 U/L (17-59); BLOOD UREA NITROGEN 11 mg/dL (7-21); CALCIUM 8.7 mg/dL (8.4-10.5); GFR AFRICAN-AMERICAN > 60; GFR NON-AFRICAN AMERICAN > 60; HDL CHOLESTEROL 46 mg/dL (29-60)
[2018-04-27 07:20] LABS: LDL CHOLESTEROL 67 mg/dL (0-129)
[2018-04-27 07:43] VITALS: RESP 18
[2018-04-27] MEDS ORDERED: Potassium Chloride 20 mEq ER Tab PO SCH (08:00)
--- NOTE | 2018-04-27 08:33 | CON ---
DATE: 04/26/2018 CARDIOLOGY CONSULTATION REASON FOR THE CONSULTATION AND FOLLOWUP: Cardiac evaluation, history of loop recorder admitted with confusion, altered mental status, and possible stroke. BRIEF CLINICAL HISTORY: This is a 72-year-old male with past medical history significant for coronary artery disease status post coronary artery bypass surgery in the past, history of multiple strokes in the past, admitted a day before yesterday when the patient wanted to go to the bathroom, but he could not get out of the bed and his speech got slurred, so the patient's called 911 and brought here. Patient has altered mental status. Denies any chest pain, shortness of breath, or any palpitation now. PAST MEDICAL HISTORY: Significant for coronary artery disease status post coronary artery bypass surgery in 2002, history of in-stent restenosis of LAD in 1999. Patient had a rotablation, but patient restenosed. Patient had a mid coronary artery bypass operation, MIDCABG with MONROE was grafted to LAD in 2002. Later on, the patient had occluded LAD and nonfunctional. The patient underwent subsequently a PTCA of kotlik LAD with brachytherapy at the end of 2002. Most recently, the patient had a stress test, so the patient is scheduled for elective cardiac catheterization in 2016. Post cardiac catheterization, patient became very much confused, agitated, so code stroke was called and later on, patient got TPA with resolution of complete neurological sign. CAT scan was negative for the bleed. After the consultation with Neurology, TPA given. Though thought of the high risk because of recent CAT, but later on, no hematoma was noted and later on, the patient recovered neurologically completely, no localizing sign noted. PREVIOUS CARDIAC WORKUP FOLLOWS: Patient had echocardiography on 01/19/2016 that revealed ejection fraction described as 60%, [id number] aortic regurgitation, [id number] mitral regurgitation, trace tricuspid regurgitation, RV systolic pressure of 23 that happened after the cardiac catheterization. The patient had a stroke type of symptoms. Patient had a cardiac catheterization on 01/19/2016 that revealed single vessel CAD, occluded LAD 100%, occluded MONROE since 2002, preserved LV function, ejection fraction 55%. After the cath on cath table,He became confused, but moving all four extremities at that time and code stroke was called and CAT scan was done. Medical treatment recommended. At that time, the LAD was found to be 100% occluded. MONROE is found to be nonfunctional, circumflex has no significant disease, ramus intermedius is a large caliber vessel without any significant disease, right coronary artery is a medium sized vessel, no significant disease. LV function is 55%, ejection fraction 15%, dated 01/19/2016. History of recurrent stroke status post loop recorder was implanted by Dr. Tubbs at [facility] ([facility] PAST MEDICAL HISTORY: Significant for hyperlipidemia, also history of PTCA as mentioned in 2000 of LAD, rotablation, single vessel disease with restenosis and patient went to single-vessel MIDCAB MONROE to LAD for in-stent restenosis. Later on in 2002, patient had a brachytherapy for in-stent restenosis of LAD and kotlik vessels and later on was refereed for MIDCAB MONROE to LAD was done because of in-stent restenosis, but after the MONROE grafted, repeat catheterization was done at the end of 2002 where the MONROE occluded, so patient underwent brachytherapy for in-stent restenosis of LAD. Patient had implantable loop recorder because of history of recurrent syncope by Dr. Tubbs on 01/27/2013 because of recurrent syncopal episode. SOCIAL HISTORY: Denies any history of alcohol abuse. CURRENT MEDICATIONS: Patient is taking at home vitamin E, Flomax, metoprolol, cyanocobalamin, clopidogrel, and aspirin. REVIEW OF SYSTEMS: As per HPI. PHYSICAL EXAMINATION: VITAL SIGNS: As follows, temperature afebrile now, but the patient came in with 103.2 fever, now the patient is 99. Height of the patient 5 feet 6 inches, weight 178 pounds, body mass index 28.8 kg/m2. Rest of the vitals are as follows. Temperature afebrile now, blood pressure 137/67. Heart rate 86. HEENT: PERRLA, intact. NECK: Supple. No carotid bruits. No thyromegaly. CHEST: Clear to auscultation. HEART: S1 and S2 regular. ABDOMEN: Soft. EXTREMITIES: Clubbing and cyanosis negative. LABORATORY DATA: EKG showed normal sinus rhythm, left axis deviation. No acute ST-T changes noted. Blood workup; WBC 9.1, hemoglobin 13.8, hematocrit 40.1, platelet count 149. Chemistry shows sodium 141, potassium 3.3, chloride 106, carbon dioxide 24, anion gap of 14, BUN 11, and creatinine 0.5. Magnesium 1.9. IMPRESSION: History of coronary artery disease status post one vessel coronary artery bypass graft, history of rotablation in 2000, later on subsequently in-stent restenosis, patient underwent minimally invasive direct coronary artery bypass left internal mammary artery to left anterior descending in 2002, history of multiple cerebrovascular accidents, admitted with most likely cerebrovascular accident-type of symptoms; history of diabetes, hypertension, and hyperlipidemia. RECOMMENDATIONS: Since the patient has a loop recorder in 2012, battery , and patient had MRI in the past, we will suggest to have MRI done to see the stroke. From the Cardiology point of view, we will treat medically. Patient had last catheterization in 2016 followed by stroke type of symptoms status post cerebrovascular accident with complete resolution of symptoms. We will get lipid profile, TSH, hemoglobin A1c. We will get echo to assess left ventricular function. Further recommendation depend on the hospital course. We will follow with you. Discussed with the , called the , Candida and explained the patient's condition. We will resume the medication including aspirin, including Plavix, and we will reorder MRI and put the note the patient okay to go for MRI. We will get the echo with the bubble study to rule out any patent foramen ovale. Thank you, Dr. Wagner, for providing us the opportunity in taking care of the patient, Josué Sherman. Kim Nicolas MD [facility]
[2018-04-27] MEDS: Multivitamin With Minerals Tab PO SCH (09:48)
[2018-04-27] MEDS: Pantoprazole 40 mg EC Tab PO SCH (09:48)
[2018-04-27] MEDS: Magnesium Oxide 400 mg Tab UD PO SCH (09:48)
--- NOTE | 2018-04-27 12:52 | MRI ---
PROCEDURE: MRI BRAIN WITHOUT CONTRAST HISTORY: cva COMPARISON: 06/20/2015 TECHNIQUE: Multiplanar, multisequence MR images of the brain were obtained without intravenous contrast enhancement. FINDINGS: HEMORRHAGE: None DWI: No evidence of an acute or early subacute infarction. BRAIN PARENCHYMA: No mass effect or edema. Minimal microvascular changes in the periventricular white matter. Old lacunar infarcts in the basal ganglia bilaterally versus dilated perivascular spaces. Findings are unchanged. No acute intracranial findings VENTRICLES: Unremarkable. No hydrocephalus. CRANIUM: Unremarkable. ORBITS: Grossly unremarkable. PARANASAL SINUSES/MASTOIDS: Clear VASCULAR SYSTEM: Skull base flow voids intact. OTHER FINDINGS: None. IMPRESSION: No acute intracranial findings
[2018-04-27] MEDS: Potassium & Sodium Phosphate PO SCH ×2 (12:53→15:03)
[2018-04-27] MEDS: Vancomycin 1gm in NS 250ml 1 GM/250 ML BAG IVPB SCH (12:53)
--- NOTE | 2018-04-27 13:46 | CARD ---
APPROVED REPORT EXAM: Two-dimensional and M-mode echocardiogram with Doppler and color Doppler. INDICATION LVFX, R/O THROMBUS AND PFO..BUBBLE STUDY 2D DIMENSIONS Left Atrium (2D)4.7 (1.6-4.0cm)IVSd1.1 (0.7-1.1cm) LVDd5.0 (3.9-5.9cm)PWd1.3 (0.7-1.1cm) LVDs3.7 (2.5-4.0cm)FS (%) 26.6 % LVEF (%)51.8 (>50%) M-Mode DIMENSIONS Aortic Root4.10 (2.2-3.7cm)Aortic Cusp Exc.2.00 (1.5-2.0cm) Aortic Valve AoV Peak Uwsrngbj452.0cm/Jennifer Peak GR.12mmHgAI P 1/2 [id number] Mitral Valve MV E Uatajnhw74.7cm/sMV A Osmenhbu81.8cm/sE/A ratio0.7 TDI Lateral E' Peak V7.41cm/sMedial E' Peak V4.39cm/sE/Lateral E'8.2 E/Medial E'13.8 Pulmonary Valve PV Peak Fbeeguky48.7cm/sPV Peak Grad.4mmHg Tricuspid Valve TR Peak Ztfwxyyb189ha/sRAP DXGQNWTJ76yyCrVU Peak Gr.18mmHg [id number] LEFT VENTRICLE The left ventricle is normal size. There is borderline to mild concentric left ventricular hypertrophy. The left ventricular function is normal.EF-55% There is mild hypokinesis in the apical anterior wall. Transmitral Doppler flow pattern is Grade III-reversible restrictive diastolic dysfunction. No left ventricle thrombus noted on this study. There is no ventricular septal defect visualized. There is no left ventricular aneurysm. There is no mass noted in the left ventricle. RIGHT VENTRICLE The right ventricle is normal size. There is normal right ventricular wall thickness. The right ventricular systolic function is normal. ATRIA The left atrium is mildly dilated. The right atrium size is normal. The interatrial septum is intact with no evidence for an atrial septal defect., By Bubble study. AORTIC VALVE The aortic valve is thickened but opens well. There is mild aortic regurgitation. There is no aortic valvular stenosis. There is no aortic valvular vegetation. MITRAL VALVE The mitral valve is thickened but opens well. Mitral regurgitation is trace to mild. There is no mitral valve stenosis. There is no evidence of mitral valve prolapse. TRICUSPID VALVE The tricuspid valve leaflets are thickened , but open well. There is trace tricuspid regurgitation.RVSP-38 mmof hg There is no tricuspid valve stenosis. There is no tricuspid valve prolapse or vegetation. PULMONIC VALVE The pulmonary valve is normal in structure. There is trace pulmonic valvular regurgitation. There is no pulmonic valvular stenosis. GREAT VESSELS The aortic root is normal in size. The ascending aorta is normal in size. The pulmonary artery is normal. The IVC is normal in size and collapses >50% with inspiration. PERICARDIAL EFFUSION There is no pleural effusion. There is no pericardial effusion. <Conclusion> The left ventricle is normal size. The left ventricular function is normal.EF-55% There is mild aortic regurgitation. Mitral regurgitation is trace to mild. There is trace tricuspid regurgitation.RVSP-38 mmof hg There is trace pulmonic valvular regurgitation. The IVC is normal in size and collapses >50% with inspiration. There is no pericardial effusion. no vegetation or thrombus noted The interatrial septum is intact with no evidence for an atrial septal defect., By Bubble study.
[2018-04-27] MEDS: Non Formulary Medication (Celecoxib [Celebrex] 200 MG) PO SCH (15:03)
--- NOTE | 2018-04-27 15:11 | PN ---
DATE: 04/27/2018 REASON FOR THE CONSULTATION AND FOLLOWUP: Cardiac evaluation, history of loop recorder in 2012, history of PTCA, history of CABG, admitted with altered mental status, possible stroke, CVA. SUBJECTIVE: The patient denies any chest pain, shortness of breath or any palpitation. Currently, the patient is in room 564, bed 20. Denies any chest pain, shortness of breath or any palpitation. OBJECTIVE: GENERAL: Not in any apparent distress. VITAL SIGNS: Temperature afebrile, heart rate 62, blood pressure 156/71. HEENT: PERRLA, intact. NECK: Supple. No carotid bruit. No thyromegaly. CHEST: Clear to auscultation. HEART: S1 and S2 regular. ABDOMEN: Soft. EXTREMITIES: Clubbing and cyanosis negative. LABORATORY DATA: WBC 7.9, hemoglobin 13.9, hematocrit 40.7, platelet count 158. Chemistry shows sodium 142, potassium 3.6, chloride 105, carbon dioxide 27, anion gap of 14, BUN 11, creatinine 0.5, total protein 6.7, albumin 3.9, albumin and globulin ratio 1.4, triglycerides 100, HDL 46, LDL 67, TSH 2.89. Hemoglobin A1c pending. IMPRESSION: Possible cerebrovascular accident versus transient ischemic attack; history of multiple stroke; history of coronary artery disease, status post stent in the left anterior descending, status post in-stent restenosis, status post mid CAB for left internal mammary artery to left anterior descending, status post left internal mammary artery occluded in 2002, status post brachytherapy of left anterior descending. Most recent catheterization in 2016, occluded left internal mammary artery, occluded left anterior descending. Medical treatment recommended. History of multiple times cerebrovascular accident, hypertension, diabetes. RECOMMENDATIONS: We will get echo to assess LV function. We will get the MRI. Though the patient had a loop recorder in 2012, the patient is okayed to go for MRI to assess whether the patient had a new stroke or not. We will follow. In the interim, continue aspirin, continue metoprolol 12.5 mg twice a day, continue Plavix, continue 20 mg Lipitor daily. We will follow with you. Further recommendations will be made after the MRI was done. Last night, I spoke to the , Candida. I explained the patient's condition and plan of management. Thank you, Dr. Wagner, for providing us the opportunity in taking care of the patient, Josué Sherman. Kim Nicolas MD [facility]
[2018-04-27 16:17] VITALS: BP 150/72; PULSE 72; TEMP 97.8; O2SAT 100
--- NOTE | 2018-04-28 08:04 | PN ---
DATE: 04/27/2018 SUBJECTIVE: Patient is in bed, in no acute distress, nontoxic. PHYSICAL EXAMINATION: VITAL SIGNS: Temperature is 97, blood pressure is 150/70, respiratory rate of 16. HEENT: Unremarkable. NECK: Supple. LUNGS: Have decreased breath sounds. HEART: Normal S1 and S2. ABDOMEN: Soft, nontender. LABORATORY EXAMINATION: Reveals a white count of 7.9, hemoglobin of 13, platelets of 158. BUN is 11, creatinine is 0.5, and a procalcitonin is 0.05. Urinalysis is noted and serology is noted. Microbiology reveals the blood cultures and urine cultures are negative. ASSESSMENT AND PLAN: A 72-year-old male with diabetes mellitus, diet controlled; coronary artery disease; myocardial infarction; cerebrovascular accident; high cholesterol; hyperlipidemia; chronic obstructive lung disease; benign prostatic hypertrophy; gastroesophageal reflux disease, hard of hearing; history of percutaneous coronary intervention and angioplasty, coronary bypass graft and defibrillator; was admitted with a temperature of 103 with systemic inflammatory response syndrome with negative imaging, negative cultures. Leukocytosis is resolved. Fevers resolved. Negative influenza. Today is day number of 4 of vancomycin, cefepime with complete 5 to 7 days. No clear source of the fever. Patient also had an MRI of brain with no acute intracranial findings. Osmany Botello MD
--- NOTE | 2018-04-28 08:11 | CON ---
DATE: 04/27/2018 UROLOGY CONSULTATION REASON FOR CONSULTATION: Cellulitis. The history is from the chart and from the . A very pleasant gentleman, who has some baseline issues, who is here now with scrotal swelling and erythema around scrotal wall. I needed to check his records on the old chart, but at the time, the patient also has a history of urethral stricture disease, but Urology is consulted for further evaluation. See the plan as listed below. PAST MEDICAL AND SURGICAL HISTORY: As listed on the chart. The patient of . MEDICATIONS: All the medications listed. SOCIAL HISTORY: He lives with his , who also provides more history. PHYSICAL EXAMINATION: GENERAL: Obese male. He is resting comfortably. ABDOMEN: Looks relatively soft. He has a relatively normal male phallus. GENITOURINARY: In his hemiscrotum, there is some erythema with no crepitus. There is no abscess formation. There is no great demarcations. No areas of necrosis noted. LABORATORY DATA: See the chart. Elevation of the white count noted. BUN and creatinine noted. The remainder of the labs noted. DIAGNOSES: Scrotal wall cellulitis with no abscess formation and no evidence of Ehsan gangrene. PLAN: From a urology standpoint, we are going to recommend the following; 1. Antibiotic treatment. 2. Local wound care, elevation, etc. I need to check some old records because the patient may need more done in terms of his phimosis and stricture. We will discuss this further. We will review the old records and see what the patient and will allow. So, for now, the plan is antibiotic, but then we will discuss further on how to deal with the patient on the penile and the urine, etc. Zafar Marmolejo MD
== END 2018-04-27 16:57 | DRG 603 ==
LOC: ED 11:29 → ERH 14:52 → 2RNO 17:25 → 5RNO 04-26 22:40
PROVIDERS: ADMIT Internal Medicine; ATTEND Internal Medicine
DX: L03.314 Cellulitis of groin (principal); R65.10 Systemic inflammatory response syndrome (SIRS) of non-infectious origin without acute organ dysfunction; I45.2 Bifascicular block; E11.9 Type 2 diabetes mellitus without complications; I25.118 Atherosclerotic heart disease of native coronary artery with other forms of angina pectoris; E78.00 Pure hypercholesterolemia, unspecified; N40.0 Benign prostatic hyperplasia without lower urinary tract symptoms; K21.9 Gastro-esophageal reflux disease without esophagitis; J44.9 Chronic obstructive pulmonary disease, unspecified; I10 Essential (primary) hypertension; R21 Rash and other nonspecific skin eruption; H91.90 Unspecified hearing loss, unspecified ear; Z86.73 Personal history of transient ischemic attack (TIA), and cerebral infarction without residual deficits; I25.2 Old myocardial infarction; Z95.1 Presence of aortocoronary bypass graft; Z95.5 Presence of coronary angioplasty implant and graft; Z79.02 Long term (current) use of antithrombotics/antiplatelets; Z79.82 Long term (current) use of aspirin

== ENCOUNTER 2018-04-27 16:57 | Inpatient (IN) | payer OTHER, BC ==
[2018-04-27] MEDS: Potassium & Sodium Phosphate PO SCH (20:03)
[2018-04-27] MEDS: Vancomycin 1gm in NS 250ml 1 GM/250 ML BAG IVPB SCH (20:03)
[2018-04-27] MEDS: Cefepime 1gm in NS 100ml 1 GM/100 ML BAG IVPB SCH (21:43)
[2018-04-27] MEDS: Sucralfate 1 gm/10 ml Oral Susp UD PO SCH (21:44)
[2018-04-28] MEDS: Vancomycin 1gm in NS 250ml 1 GM/250 ML BAG IVPB SCH ×2 (05:29→17:20)
[2018-04-28] MEDS: Cefepime 1gm in NS 100ml 1 GM/100 ML BAG IVPB SCH ×3 (05:29→21:39)
[2018-04-28] MEDS: Pantoprazole 40 mg EC Tab PO SCH (05:30)
[2018-04-28] MEDS: Sucralfate 1 gm/10 ml Oral Susp UD PO SCH ×4 (05:30→21:39)
[2018-04-28] MEDS: Potassium Chloride 20 mEq ER Tab PO SCH (07:44)
[2018-04-28] MEDS: Multivitamin With Minerals Tab PO SCH (07:48)
[2018-04-28] MEDS: Potassium & Sodium Phosphate PO SCH ×3 (09:55→17:19)
[2018-04-28] MEDS: Magnesium Oxide 400 mg Tab UD PO SCH (09:55)
[2018-04-28] MEDS ORDERED: Home Med 1 UNIT PO SCH (10:00)
[2018-04-28] MEDS ORDERED: Non Formulary Medication (Celecoxib [Celebrex] 200 MG) PO SCH (10:00)
[2018-04-28] MEDS ORDERED: CELEBREX 200 MG PO SCH (13:00)
--- NOTE | 2018-04-28 19:19 | CP.PCM.CON ---
History of Present Illness - History of Present Illness History of Present Illness: 72 year old male with PMH of CAD S/P PCI, CVA, DM came in initially to [facility] because of confusion and fevers. The patient improved clinically, and no specific source of infection identified but patient did present with systemic inflammatory response syndrome. He neurologically better and is now transferred to [facility] for continued medical therapy and physical therapy. Infectious Diseases consult is requested to further evaluate and manage. There is no note of fevers , no diarrhea, no vomiting. Review of Systems - Review of Systems All systems: reviewed and no additional remarkable complaints except (as per HPI ) Past Patient History - Infectious Disease Hx of Infectious Diseases: None - Tetanus Immunizations Tetanus Immunization: Unknown - Past Social History Smoking Status: Never Smoked - CARDIAC Hx Cardiac Disorders: Yes Hx Angina: Yes Hx Cardia Arrhythmia: Yes Hx Circulatory Problems: Yes Hx Congestive Heart Failure: No Hx Heart Murmur: No Hx Heart Transplant: No Hx Hypercholesterolemia: Yes Hx Hypertension: Yes Hx Internal Defibrillator: No Hx Mitral Valve Prolapse: No Hx Pacemaker: No Hx Peripheral Edema: Yes Hx Peripheral Vascular Disease: No - PULMONARY Hx Respiratory Disorders: Yes Hx Asthma: No Hx Bronchitis: No Hx Chronic Obstructive Pulmonary Disease (COPD): Yes Hx Emphysema: No Hx Pneumonia: No Hx Respiratory Aspiration: No Hx Respiratory Tract Infection: No Hx Sleep Apnea: No Hx Tuberculosis: No - NEUROLOGICAL Hx Neurological Disorder: No Hx Alzheimer's Disease: No HX Cerebrovascular Accident: Yes Hx Dementia: No Hx Dizziness: No Hx Meningitis: No Hx Migraine: No Hx Parkinson's Disease: No Hx Seizures: No Hx Transient Ischemic Attacks (TIA): No - HEENT Hx HEENT Problems: No Hx Blind: No Hx Cataracts: No Hx Deafness: No Hx Difficulty Chewing: No Hx Epistaxis: No Hx Glaucoma: No Hx Macular Degeneration: No - RENAL Hx Chronic Kidney Disease: No Hx Dialysis: No Hx Kidney Stones: No Hx Neurogenic Bladder: No Hx Pyelonephritis: No Hx Renal (Kidney) Cancer: No Hx Renal Failure: No - ENDOCRINE/METABOLIC Hx Diabetes Mellitus Type 1: Yes - HEMATOLOGICAL/ONCOLOGICAL Hx Blood Disorders: No Hx AIDS: No Hx Anemia: No Hx Cancer: No Hx Chemotherapy: No Hx Cirrhosis: No Hx Hepatitis A: No Hx Hepatitis B: No Hx Hepatitis C: No Hx Metastesis: No Hx Shingles: No Hx Unexplained Bleeding: No - INTEGUMENTARY Hx Dermatological Problems: No Hx Basil Cell: No Hx Eczema: No Hx Melanoma: No Hx Psoriasis: No Hx Squamous Cell: No Other/Comment: Scars noted on chest - MUSCULOSKELETAL/RHEUMATOLOGICAL Hx Falls: Yes - GASTROINTESTINAL Hx Gastroesophageal Reflux: Yes - GENITOURINARY/GYNECOLOGICAL Hx Genitourinary Disorders: Yes Hx Hematuria: No Hx Incontinence: Yes Hx Prostate Problems: Yes (bph cysto 06/2013) Hx Sexually Transmitted Disorders: No Hx Urinary Tract Infection: No - PSYCHIATRIC Hx Anxiety: Yes Hx Emotional Abuse: No Hx Physical Abuse: No Hx Substance Use: No - SURGICAL HISTORY Hx Cardiac Catheterization: Yes Hx Coronary Stent: Yes - ANESTHESIA Hx Anesthesia Reactions: No Hx Malignant Hyperthermia: No Meds Allergies/Adverse Reactions: Allergies Allergy/AdvReac Type Severity Reaction Status Date / Time No Known Allergies Allergy Verified 04/28/18 05:46 - Medications Medications: Current Medications Acetaminophen (Tylenol 325mg Tab) 650 mg PO Q6H PRN PRN Reason: Headache Aspirin (Ecotrin) 81 mg PO 0800 [facility] Atorvastatin Calcium (Lipitor) 20 mg PO DIN [facility] Clopidogrel Bisulfate (Plavix) 75 mg PO DAILY [facility] Escitalopram Oxalate (Lexapro) 10 mg PO DAILY [facility] Home Med (Home Med) 0.5 unit PO DAILY [facility] Cefepime HCl (Maxipime 1gm) 1 gm in 100 mls @ 100 mls/hr IVPB Q8 [facility] PRN Reason: Protocol Last Admin: 04/28/18 05:29 Dose: 100 mls/hr Vancomycin HCl (Vancomycin 1gm) 1 gm in 250 mls @ 167 mls/hr IVPB Q12H [facility] PRN Reason: Protocol Last Admin: 04/28/18 05:29 Dose: 167 mls/hr Ibuprofen (Motrin Tab) 400 mg PO Q6H PRN PRN Reason: Pain, moderate (4-7) Magnesium Oxide (Mag-Ox) 400 mg PO DAILY [facility] Metoprolol Tartrate (Lopressor) 12.5 mg PO DAILY [facility] Multivitamins/Minerals (Therapeutic-M Tab) 1 tab PO 0800 [facility] Non-Formulary Medication (Celecoxib [Celebrex]) 200 mg PO DAILY [facility] Pantoprazole Sodium (Protonix Ec Tab) 40 mg PO 0600 [facility] Last Admin: 04/28/18 05:30 Dose: 40 mg Potassium Chloride (K-Dur 20 Meq Er Tab) 20 meq PO 0800 [facility] Potassium Phos/Sodium Phos (Neutra-Phos) 1 pkt PO TID [facility] Last Admin: 04/27/18 20:03 Dose: 1 pkt Sucralfate (Carafate Oral Susp) 1 gm PO 0630,1130,1630,2200 [facility] Last Admin: 04/28/18 05:30 Dose: 1 gm Tamsulosin HCl (Flomax) 0.4 mg PO 1830 [facility] Last Admin: 04/27/18 20:03 Dose: 0.4 mg Vitamin E (Vitamin E 400 Units Cap) 400 intlu PO DAILY [facility] Physical Exam - Constitutional Appears: Non-toxic, Chronically Ill - Head Exam Head Exam: NORMAL INSPECTION - Respiratory Exam Respiratory Exam: Decreased Breath Sounds - Cardiovascular Exam Cardiovascular Exam: +S1, +S2 - GI/Abdominal Exam GI & Abdominal Exam: Soft. absent: Tenderness Results - Vital Signs Recent Vital Signs: Last Vital Signs Temp 98.1 F 04/28/18 05:47 Pulse 71 04/28/18 05:47 Resp 18 04/28/18 05:47 BP 144/82 04/28/18 05:47 Pulse Ox 96 04/28/18 05:47 Assessment & Plan - Assessment and Plan (Free Text) Plan: Assessment systemic inflammatory response syndrome, R/O sepsis CAD S/P PCI CVA DM Plan continue Vancomycin and Cefepime (day 3) - cultures have been negative - may d/ c antibiotics in the next 24-48 hours
[2018-04-29] MEDS: Cefepime 1gm in NS 100ml 1 GM/100 ML BAG IVPB SCH (05:35)
[2018-04-29] MEDS: Pantoprazole 40 mg EC Tab PO SCH (05:35)
[2018-04-29] MEDS: Vancomycin 1gm in NS 250ml 1 GM/250 ML BAG IVPB SCH (05:35)
[2018-04-29] MEDS: Sucralfate 1 gm/10 ml Oral Susp UD PO SCH ×4 (05:36→21:44)
[2018-04-29] MEDS: Multivitamin With Minerals Tab PO SCH (08:03)
[2018-04-29] MEDS: Potassium Chloride 20 mEq ER Tab PO SCH (08:03)
[2018-04-29 08:28] LABS: BASO # 0.03 K/mm3 (0.0-2.0); BASO % 0.4 % (0.0-3.0); EOS # 0.4 (0.0-0.7); EOS % 6.2 % (1.5-5.0); GRAN # 5.24 (1.4-6.5); GRAN % 75.4 % (50.0-68.0); HEMOGLOBIN 13.3 g/dL (14.0-18.0); LYMPH # 0.7 (1.2-3.4); LYMPH % 10.2 % (22.0-35.0); MEAN CELL VOLUME 90.7 fl (80.0-105.0); MEAN CORPUSCULAR HEMOGLOBIN 31.6 pg (25.0-35.0); MEAN CORPUSCULAR HGB CONC 34.8 g/dl (31.0-37.0); MEAN PLATELET VOLUME 10.3 fl (7.0-11.0); MONO # 0.5 (0.1-0.6); MONO % 7.8 % (1.0-6.0); RBC 4.21 10^6/uL (3.5-6.1)
[2018-04-29 08:44] LABS: ALB/GLOB RATIO 1.3 (1.1-1.8); ALBUMIN 3.7 g/dL (3.0-4.8); ALT/SGPT 36 U/L (7-56); AST/SGOT 25 U/L (17-59); BLOOD UREA NITROGEN 16 mg/dL (7-21); CALCIUM 8.3 mg/dL (8.4-10.5); GFR AFRICAN-AMERICAN > 60; GFR NON-AFRICAN AMERICAN > 60
[2018-04-29 08:55] LABS: FREE T4 1.35 ng/dL (0.78-2.19)
[2018-04-29] MEDS: DUTASTERIDE 0.5 MG PO SCH (10:07)
[2018-04-29] MEDS: CELEBREX 200 MG PO SCH (10:09)
[2018-04-29] MEDS: Magnesium Oxide 400 mg Tab UD PO SCH (10:10)
[2018-04-29] MEDS: Potassium & Sodium Phosphate PO SCH ×3 (10:10→17:37)
[2018-04-29 10:12] VITALS: PULSE 68
--- NOTE | 2018-04-29 12:16 | CP.PCM.PN ---
Subjective - Date & Time of Evaluation Date of Evaluation: 04/29/18 Time of Evaluation: 11:00 - Subjective Subjective: Comfortable, doing PT ok. Objective - Vital Signs/Intake and Output Vital Signs (last 24 hours): Temp Pulse Resp BP Pulse Ox 97.6 F 55 L 18 124/67 99 04/28/18 15:00 04/28/18 15:00 04/28/18 15:00 04/28/18 15:00 04/28/18 15:00 - Medications Medications: Current Medications Acetaminophen (Tylenol 325mg Tab) 650 mg PO Q6H PRN PRN Reason: Headache Aspirin (Ecotrin) 81 mg PO 0800 [facility] Last Admin: 04/29/18 08:03 Dose: 81 mg Atorvastatin Calcium (Lipitor) 20 mg PO DIN [facility] Last Admin: 04/28/18 17:19 Dose: 20 mg Clopidogrel Bisulfate (Plavix) 75 mg PO DAILY [facility] Last Admin: 04/28/18 09:55 Dose: 75 mg Escitalopram Oxalate (Lexapro) 10 mg PO DAILY [facility] Last Admin: 04/28/18 09:54 Dose: 10 mg Home Med (Home Med) 0 unit PO DAILY [facility] Home Med (Home Med) 0 unit PO DAILY [facility] PRN Reason: Protocol Cefepime HCl (Maxipime 1gm) 1 gm in 100 mls @ 100 mls/hr IVPB Q8 [facility] PRN Reason: Protocol Last Admin: 04/29/18 05:35 Dose: 100 mls/hr Vancomycin HCl (Vancomycin 1gm) 1 gm in 250 mls @ 167 mls/hr IVPB Q12H [facility] PRN Reason: Protocol Last Admin: 04/29/18 05:35 Dose: 167 mls/hr Ibuprofen (Motrin Tab) 400 mg PO Q6H PRN PRN Reason: Pain, moderate (4-7) Magnesium Oxide (Mag-Ox) 400 mg PO DAILY [facility] Last Admin: 04/28/18 09:55 Dose: 400 mg Metoprolol Tartrate (Lopressor) 12.5 mg PO DAILY [facility] Last Admin: 04/28/18 09:55 Dose: Not Given Multivitamins/Minerals (Therapeutic-M Tab) 1 tab PO 0800 [facility] Last Admin: 04/29/18 08:03 Dose: 1 tab Pantoprazole Sodium (Protonix Ec Tab) 40 mg PO 0600 [facility] Last Admin: 04/29/18 05:35 Dose: 40 mg Potassium Chloride (K-Dur 20 Meq Er Tab) 20 meq PO 0800 [facility] Last Admin: 04/29/18 08:03 Dose: 20 meq Potassium Phos/Sodium Phos (Neutra-Phos) 1 pkt PO TID [facility] Last Admin: 04/28/18 17:19 Dose: 1 pkt Sucralfate (Carafate Oral Susp) 1 gm PO 0630,1130,1630,2200 [facility] Last Admin: 04/29/18 05:36 Dose: 1 gm Tamsulosin HCl (Flomax) 0.4 mg PO 1830 [facility] Last Admin: 04/28/18 17:18 Dose: 0.4 mg Vitamin E (Vitamin E 400 Units Cap) 400 intlu PO DAILY [facility] Last Admin: 04/28/18 09:56 Dose: 400 intlu - Labs Labs: 04/29/18 08:00 04/29/18 08:00 - Constitutional Appears: Chronically Ill - Respiratory Exam Respiratory Exam: Decreased Breath Sounds - Cardiovascular Exam Cardiovascular Exam: +S1, +S2 - GI/Abdominal Exam GI & Abdominal Exam: Soft. absent: Tenderness Assessment and Plan - Assessment and Plan (Free Text) Plan: Assessment systemic inflammatory response syndrome, with no evidence of sepsis CAD S/P PCI CVA DM Plan continue Vancomycin and Cefepime (day 3) - cultures have been negative - may d/ c antibiotics today
--- NOTE | 2018-04-29 14:03 | PN ---
DATE: 04/28/2018 SUBJECTIVE: The patient was seen this Tuesday morning in Transitional Care Unit at [facility], standing out of bed, in his room, awake, alert, clear and comfortable, dressed in civilian clothes, looking forward to more physical therapy. Cellulitis, erythema of the scrotum and groin has markedly improved. There is some residual tinea left. For this, I will order some nystatin powder. PHYSICAL EXAMINATION LUNGS: Show good aeration. HEART: Regular, not tachycardic. IMPRESSION: Cellulitis, recovering nicely. PLAN: I spoke with the patient regarding his MRI that was unremarkable. He was concerned about his speech as he feels still a bit stuttered or stammered. I will ask Speech pathology to evaluate and Dr. Petersen for Neurology to continue to follow. Since MRI is done and the patient is already on aspirin and Plavix, I think her best treatment options lie in the hands of the speech pathologist and time. Josué Wagner MD
--- NOTE | 2018-04-29 14:39 | HP ---
CHIEF COMPLAINT: Admitted to the acute care hospital with sepsis and cellulitis. The patient now comes to Transitional Care for treatment of his deconditioning, continuing some antibiotics and further adjustment of his medication as well as workup and evaluation for questions raised about his neurologic state. HISTORY OF PRESENT ILLNESS: This is a 72-year-old man I have known for many years with a history of diet-controlled diabetes, coronary artery disease, status post PTCA in 1997 and then CABG in 1998. History of having stroke in 2012 and 2016. He has a history of COPD, BPH and gastroesophageal reflux disease and hearing loss. MEDICATIONS: At the time of admission included aspirin, Plavix, ranitidine, Flomax, Avodart, Ecotrin, Lexapro, Lasix, simvastatin and Fioricet. ALLERGIES: HE HAS NO KNOWN ALLERGIES TO MEDICATION. SOCIAL HISTORY: Quit smoking in 1979, occasionally drinks alcohol and drinks approximately 3 cups of coffee a day. He is to his Olivia for many years. PHYSICAL EXAMINATION GENERAL: The patient was seen in medical floor and then on Transitional Care Unit, awake, alert, clear, oriented, appropriate in his response, able to engage in conversation. This was vast improvement from when he presented quite septic and lethargic and obtunded only a few days ago. HEENT: Head and neck are unremarkable. Conjunctivae are pink. Mucous membranes are moist. NECK: Supple without masses. There is no JVD. Thyroid is not palpable. LUNGS: Show good aeration, right and left. HEART: Regular, not tachycardic. ABDOMEN: Soft, nontender. EXTREMITIES: Thin with no edema. SKIN: Rash on the groin and scrotum has markedly improved. The edema has subsided. There is some residual tinea. IMPRESSION: 1. Deconditioning. 2. Cellulitis of the groin and scrotum. 3. Altered mental status on admission related to sepsis. 4. Diet-controlled diabetes. 5. Coronary artery disease with percutaneous transluminal coronary angioplasty in 1997 and coronary artery bypass graft in 1998. 6. Cerebrovascular accident in 2012 and 2016. 7. History of chronic obstructive pulmonary disease. 8. Benign prostatic hypertrophy. 9. Gastroesophageal reflux. 10. Hearing loss. PLAN: Admit the patient to Transitional Care Unit for additional physical therapy. Continue his course of antibiotics as well as follow up by Infectious Disease and Neurology. Josué Wagner MD [facility] # [id number]
[2018-04-30] MEDS: Sucralfate 1 gm/10 ml Oral Susp UD PO SCH ×2 (05:56→12:01)
[2018-04-30] MEDS: Pantoprazole 40 mg EC Tab PO SCH (05:57)
[2018-04-30] MEDS: Multivitamin With Minerals Tab PO SCH (07:57)
[2018-04-30] MEDS: Potassium Chloride 20 mEq ER Tab PO SCH (07:57)
[2018-04-30] MEDS: DUTASTERIDE 0.5 MG PO SCH (09:51)
[2018-04-30] MEDS: CELEBREX 200 MG PO SCH (09:51)
[2018-04-30] MEDS: Potassium & Sodium Phosphate PO SCH (09:52)
[2018-04-30] MEDS: Magnesium Oxide 400 mg Tab UD PO SCH (09:52)
[2018-04-30 09:56] VITALS: BP 110/68
[2018-04-30] MEDS ORDERED: Nystatin 100,000 Units/gm Topical Pow(15 gm) TOP SCH (10:00)
[2018-04-30 10:58] VITALS: RESP 18; TEMP 98.5; O2SAT 94
--- NOTE | 2018-05-01 07:38 | DS ---
HOSPITAL COURSE: This is a 72-year-old man who presented to the Acute Care Facility at [facility] with fever of 103, elevated white count and cellulitis of the groin and scrotum. He is treated with antibiotics, improved. The mental status went from quite confused and obtunded to clear and baseline so he came to the Transitional Care Unit for additional physical therapy and conditioning. This is the discharge summary for the patient's stay on Transitional Care. The patient engaged in the activities at Transitional Care Unit. He was quite excited about going to the gym for an exercise and walking in the halls. He continued with antibiotics until released by Infectious Disease and antibiotics were discontinued. Nystatin powder was continued and arrangements were made for his discharge to home on Tuesday. We will continue his prior medications. Follow up with me in the office later this week. I spoke with the patient's at length reviewing of findings and source of the infection. FINAL DISCHARGE DIAGNOSES: 1. Deconditioning. 2. Cellulitis of the groin. 3. Atherosclerotic cerebrovascular disease, status post cerebrovascular accident. Josué Wagner MD
--- NOTE | 2018-05-01 09:25 | PN ---
DATE: 04/29/2018 SUBJECTIVE: Patient was seen in the Tuesday morning in room 304, bed 1 at the Transitional Care Unit. He is out of bed, fully dressed, and avoiding . Rash in the groin and scrotum has continues to improve dramatically. He is doing well, engaging in activities continuing IV antibiotics, and doing well with physical therapy as well as . We will check with Infectious Disease regarding the course of antibiotics able to discontinue antibiotics soon and he will be ready for discharge to home if possibly as early as tomorrow, Tuesday. We will continue physical therapy, ambulation, and antibiotics until hear from ID. Josué Wagner MD
== END 2018-04-30 13:28 | disposition home or self-care (01) | DRG 603 ==
LOC: TRCU 16:57
PROVIDERS: ADMIT Internal Medicine; ATTEND Internal Medicine
PROC: F07Z9FZ Gait Training/Functional Ambulation Treatment using Assistive, Adaptive, Supportive or Protective Equipment (ICD-10-PCS; principal; 2018-04-28)
PROC: F07M6ZZ Therapeutic Exercise Treatment of Musculoskeletal System - Whole Body (ICD-10-PCS; 2018-04-28)
PROC: F08Z4ZZ Home Management Treatment (ICD-10-PCS; 2018-04-28)
DX: L03.314 Cellulitis of groin (principal); R65.10 Systemic inflammatory response syndrome (SIRS) of non-infectious origin without acute organ dysfunction; N49.2 Inflammatory disorders of scrotum; I25.10 Atherosclerotic heart disease of native coronary artery without angina pectoris; J44.9 Chronic obstructive pulmonary disease, unspecified; K21.9 Gastro-esophageal reflux disease without esophagitis; I10 Essential (primary) hypertension; H91.90 Unspecified hearing loss, unspecified ear; E78.00 Pure hypercholesterolemia, unspecified; E10.9 Type 1 diabetes mellitus without complications; B35.9 Dermatophytosis, unspecified; N40.0 Benign prostatic hyperplasia without lower urinary tract symptoms; Z79.4 Long term (current) use of insulin; Z86.73 Personal history of transient ischemic attack (TIA), and cerebral infarction without residual deficits; Z87.891 Personal history of nicotine dependence; Z95.1 Presence of aortocoronary bypass graft; Z95.5 Presence of coronary angioplasty implant and graft

== ENCOUNTER 2018-10-03 15:24 | Inpatient (IN) | payer MEDICARE, BC ==
[2018-10-03 15:41] VITALS: BMI 28.1
--- NOTE | 2018-10-03 15:44 | ED PDOC ---
Arrival/HPI - General Time Seen by Provider: 10/03/18 15:28 Historian: Spouse, EMS - History of Present Illness Narrative History of Present Illness (Text): 10/03/18 15:43 72 year old male, with past medical history of CVA x3, TIA, coronary stents, and diabetes, presents to the Emergency department accompanied by via EMS for evaluation of AMS today. states patient was at his baseline yesterday without any somatic complaints. However, as per , patient has been complaining of "feeling sick" since waking up at 6 am this morning. Patient subsequently became disoriented after half an hour, which progressively worsened throughout the day. states patient became confused multiple times going to the bathroom as to where to urinate, leading him to urinate on the floor. also informs multiple episodes of vomiting, prompting her to present patient for medical evaluation. Patient has been able to ambulate and move all his extremities without any difficulty. HPI and ROS limited secondary to patient's clinical condition of AMS. Time/Duration: 4-6 hours Symptom Onset: Gradual Symptom Course: Unchanged Activities at Onset: Light Context: Home Past Medical History - Provider Review Nursing Documentation Reviewed: Yes - Infectious Disease Hx of Infectious Diseases: None - Tetanus Immunization Tetanus Immunization: Unknown - Cardiac Hx Circulatory Problems: No Hx Pacemaker: ( denies) Hx Peripheral Edema: No - Pulmonary Hx Respiratory Disorders: No Hx Chronic Obstructive Pulmonary Disease (COPD): No - Neurological Hx Neurological Disorder: Yes (syncope) - HEENT Hx HEENT Disorder: No Hx Blind: No Hx Cataracts: No Hx Deafness: No Hx Difficulty Chewing: No Hx Epistaxis: No Hx Glaucoma: No Hx Macular Degeneration: No - Renal Hx Renal Disorder: No Hx Dialysis: No Hx Kidney Stones: No Hx Neurogenic Bladder: No Hx Pyelonephritis: No Hx Renal Cancer: No Hx Renal Failure: No - Endocrine/Metabolic Hx Diabetes Mellitus Type 1: No - Hematological/Oncological Hx Blood Disorders: No Hx AIDS: No Hx Anemia: No Hx Cancer: No Hx Chemotherapy: No Hx Cirrhosis: No Hx Hepatitis A: No Hx Hepatitis B: No Hx Hepatitis C: No Hx Metastasis: No Hx Shingles: No Hx Unexplained Bleeding: No - Integumentary Hx Dermatological Disorder: No Hx Basal Cell Carcinoma: No Hx Eczema: No Hx Melanoma: No Hx Psoriasis: No Hx Squamous Cell Carcinoma: No Other/Comment: Scars noted on chest - Musculoskeletal/Rheumatological Hx Falls: Yes (in the past) - Gastrointestinal Hx Gastroesophageal Reflux: Yes - Genitourinary/Gynecological Hx Genitourinary Disorders: Yes Hx Hematuria: No Hx Incontinence: Yes Hx Prostate Problems: Yes (bph cysto 06/2013) Hx Sexually Transmitted Diseases: No Hx Urinary Tract Infection: No - Psychiatric Hx Anxiety: Yes Hx Emotional Abuse: No Hx Physical Abuse: No Hx Substance Use: No - Surgical History Hx Coronary Stent: Yes (ptca 2000) - Anesthesia Hx Anesthesia Reactions: No Hx Malignant Hyperthermia: No - Suicidal Assessment Feels Threatened In Home Enviroment: No Family/Social History - Physician Review Nursing Documentation Reviewed: Yes Family/Social History: Unknown Family HX Smoking Status: Former Smoker Hx Alcohol Use: No Hx Substance Use: No Hx Substance Use Treatment: No Allergies/Home Meds Allergies/Adverse Reactions: Allergies No Known Allergies Allergy (Verified 10/03/18 15:41) Home Medications: Home Meds Medication Instructions Recorded Confirmed RX: Celecoxib [Celebrex] 200 mg PO DAILY 12/28/12 04/28/18 RX: Simvastatin 40 mg PO DAILY 01/04/13 04/28/18 RX: Cyclobenzaprine HCl [Flexeril] 10 mg PO DAILY 04/04/14 04/28/18 RX: Escitalopram [Lexapro] 10 mg PO DAILY 04/04/14 04/28/18 RX: Tamsulosin [Flomax] 0.4 mg PO DAILY 04/04/14 04/28/18 RX: Aspirin [Ecotrin] 81 mg PO DAILY 12/24/15 04/28/18 RX: Clopidogrel [Plavix] 75 mg PO DAILY 12/24/15 04/28/18 RX: Dutasteride [Avodart] 0.5 mg PO DAILY 12/24/15 04/28/18 RX: Vitamin E 400 iu PO DAILY 12/24/15 04/28/18 RX: Metoprolol Tartrate [Lopressor] 12.5 mg PO DAILY 01/16/16 04/28/18 RX: Multivitamin/Iron/Folic Acid 1 tab PO DAILY 04/24/18 04/28/18 [Centrum Adults Tablet] Review of Systems - Review of Systems Systems not reviewed;Unavailable: Altered Mental Status Respiratory: absent: SOB Cardiovascular: absent: Chest Pain Gastrointestinal: Vomiting Physical Exam Vital Signs Reviewed: Yes Temperature: Afebrile Blood Pressure: Hypertensive Pulse: Regular Respiratory Rate: Normal Appearance: Positive for: Well-Appearing Pain Distress: None Mental Status: Positive for: Confused (Not oriented to person, place or time. Speaking randoms words to questions. Poor eye contact. Not following commands.) - Systems Exam Head: Present: Atraumatic, Normocephalic Pupils: Present: PERRL Extroacular Muscles: Present: EOMI Conjunctiva: Present: Normal Respiratory/Chest: Present: Clear to Auscultation, Good Air Exchange. No: Respiratory Distress, Accessory Muscle Use Cardiovascular: Present: Regular Rate and Rhythm, Normal S1, S2. No: Murmurs Abdomen: No: Tenderness, Distention, Peritoneal Signs Upper Extremity: Present: Normal Inspection. No: Cyanosis, Edema Lower Extremity: Present: Normal Inspection. No: Edema Neurological: Present: Other (Limited neuro exam secondary to patient not following commands) Skin: Present: Warm, Dry, Normal Color. No: Rashes Psychiatric: Present: Alert (Not oriented) Medical Decision Making ED Course and Treatment: 10/03/18 15:45 Impression: 72 year old male presents to the Emergency department for evaluation of AMS. Differential Diagnosis included but are not limited to: AMS Plan: -- ABG -- Labs -- CT of Head -- Reassess and disposition Prior Visits: Notes and results from previous visits were reviewed. Progress Notes: 10/03/18 15:39 EKG: Ordered, reviewed, and independently interpreted the EKG, shows NSR@ 83bpm, left axis deviation, nml intervals, RBBB. No ST elevation. 10/03/18 18:32 Chest X-ray reviewed by radiologist, shows no active disease. Multiple attempts made to obtain CT head. 5mg haldol IM given, and then 2mg ativan ivp given for continued combative behavior. Eventually obtained CT head which was unremarkable. Case discussed with Dr. Estrella Wagner who accepts admission to his service. Requests Dr. Petersen for neurology consult, consult ordered. - Lab Interpretations Lab Results: Lab Results 10/03/18 15:32: POC Glucose (mg/dL) 224 H - RAD Interpretation Narrative RAD Interpretations (Text): EXAM: CT Head without Intravenous Contrast. CLINICAL HISTORY: AMS TECHNIQUE: Axial computed tomography images of the head/brain without intravenous contrast. 854.88 mGy-cm COMPARISON: None provided. FINDINGS: BRAIN No acute intraparenchymal hemorrhage. No mass lesion. No CT evidence for acute territorial infarct. No midline shift or extra-axial collections. VENTRICLES: No hydrocephalus. ORBITS: The orbits are unremarkable. SINUSES AND MASTOIDS: There is mild lobulated mucoperiosteal thickening involving the right maxillary sinus and ethmoid sinuses.. BONES: No fracture. SOFT TISSUES: Unremarkable. IMPRESSION: No acute intracranial abnormality. Lobulated mucoperiosteal thickening right maxillary sinus and ethmoid sinuses. Clinical correlation advised. Radiology Orders: 10/03/18 15:41 HEAD W/O CONTRAST [CT] Stat CXR [CHEST PORTABLE] [RAD] Stat - EKG Interpretation Interpreted by ED Physician: Yes Type: 12 lead EKG - Scribe Statement The provider has reviewed the documentation as recorded by the Scribe Ab Gary. All medical record entries made by the Scribe were at my direction and personally dictated by me. I have reviewed the chart and agree that the record accurately reflects my personal performance of the history, physical exam, medical decision making, and the department course for this patient. I have also personally directed, reviewed, and agree with the discharge instructions and disposition. Disposition/Present on Arrival - Present on Arrival Any Indicators Present on Arrival: Yes History of DVT/PE: No History of Uncontrolled Diabetes: No Urinary Catheter: Yes History Surgical Site Infection Following: CABG - Mediastinitis - Disposition Have Diagnosis and Disposition been Completed?: Yes Diagnosis: Altered mental status Disposition: HOSPITALIZED Disposition Time: 22:20 Condition: STABLE
--- NOTE | 2018-10-03 16:15 | RAD ---
Date of service: 10/03/2018 HISTORY: r/o pna COMPARISON: 04/24/2018 FINDINGS: LUNGS: No active pulmonary disease. PLEURA: No significant pleural effusion identified, no pneumothorax apparent. CARDIOVASCULAR: No aortic atherosclerotic calcification present. Mild cardiomegaly. Moderate aortic tortuosity no pulmonary vascular congestion. OSSEOUS STRUCTURES: No significant abnormalities. VISUALIZED UPPER ABDOMEN: Normal. OTHER FINDINGS: None. IMPRESSION: No active disease.
[2018-10-03 16:18] LABS: ARTERIAL BLOOD GAS O2 SAT 98.1 % (95-98); ARTERIAL BLOOD GAS PCO2 32 mm/Hg (35-45)
[2018-10-03 16:22] LABS: BASO # 0.01 K/mm3 (0.0-2.0); BASO % 0.1 % (0.0-3.0); GRAN # 8.94 (1.4-6.5); GRAN % 92.7 % (50.0-68.0); HEMOGLOBIN 15.5 g/dL (14.0-18.0); LYMPH # 0.4 (1.2-3.4); LYMPH % 4.3 % (22.0-35.0); MEAN CELL VOLUME 89.8 fl (80.0-105.0); MEAN CORPUSCULAR HEMOGLOBIN 30.9 pg (25.0-35.0); MEAN CORPUSCULAR HGB CONC 34.4 g/dl (31.0-37.0); MEAN PLATELET VOLUME 11.2 fl (7.0-11.0); MONO # 0.3 (0.1-0.6); MONO % 2.9 % (1.0-6.0); PLATELET COUNT 191 10^3/uL (120.0-450.0); RBC 5.02 10^6/uL (3.5-6.1); RED CELL DISTRIBUTION WIDTH 13.1 % (11.5-14.5); WHITE BLOOD COUNT 9.6 10^3/uL (4.5-11.0)
[2018-10-03 16:25] LABS: ALB/GLOB RATIO 1.2 (1.1-1.8); ALBUMIN 4.6 g/dL (3.0-4.8); ALT/SGPT 30 U/L (7-56); AST/SGOT 32 U/L (17-59); BLOOD UREA NITROGEN 17 mg/dL (7-21); CALCIUM 9.9 mg/dL (8.4-10.5); GFR NON-AFRICAN AMERICAN > 60
[2018-10-03 17:19] LABS: LYMPHOCYTE 5 % (22.0-35.0); MONOCYTE 2 % (1.0-6.0); NEUTROPHIL 93 % (50.0-70.0)
--- NOTE | 2018-10-03 19:13 | CARD ---
APPROVED REPORT Date of service: 10/03/2018 EKG Measurement Heart [id number] <Conclusion> Normal sinus rhythm Left axis deviation Right bundle branch block Abnormal ECG
[2018-10-03 20:43] LABS: URINE BILIRUBIN NEGATIVE (NEGATIVE); URINE BLOOD NEGATIVE (NEGATIVE); URINE GLUCOSE (UA) 500 mg/dL (NEGATIVE); URINE LEUKOCYTE ESTERASE NEGATIVE Leu/uL (NEGATIVE); URINE PROTEIN TRACE mg/dL (<30 mg/dL); URINE UROBILINOGEN 0.2 E.U./dL (<1 E.U./dL)
[2018-10-03 20:49] LABS: URINE APPEARANCE CLEAR (CLEAR); URINE COLOR YELLOW (YELLOW)
[2018-10-03 21:02] LABS: URINE BACTERIA NEG (NEG); URINE EPITHELIAL CELLS 0 - 2 /hpf (0-5); URINE RBC 0 - 2 /hpf (0-2); URINE WBC 0 - 2 /hpf (0-6)
[2018-10-03] MEDS ORDERED: cefTRIAXone 1 gm 1 GM/100 ML BAG IVPB STA (23:11)
[2018-10-04 05:54] LABS: BASO # 0.01 K/mm3 (0.0-2.0); BASO % 0.1 % (0.0-3.0); GRAN # 10.04 (1.4-6.5); GRAN % 83.9 % (50.0-68.0); HEMOGLOBIN 15.1 g/dL (14.0-18.0); LYMPH # 0.6 (1.2-3.4); LYMPH % 4.8 % (22.0-35.0); MEAN CELL VOLUME 90.3 fl (80.0-105.0); MEAN CORPUSCULAR HEMOGLOBIN 31.1 pg (25.0-35.0); MEAN CORPUSCULAR HGB CONC 34.4 g/dl (31.0-37.0); MEAN PLATELET VOLUME 10.9 fl (7.0-11.0); MONO # 1.3 (0.1-0.6); MONO % 11.2 % (1.0-6.0); RBC 4.86 10^6/uL (3.5-6.1)
[2018-10-04 06:07] LABS: ALB/GLOB RATIO 1.1 (1.1-1.8); ALBUMIN 4.1 g/dL (3.0-4.8); ALT/SGPT 30 U/L (7-56); AST/SGOT 36 U/L (17-59); BLOOD UREA NITROGEN 30 mg/dL (7-21); CALCIUM 9.3 mg/dL (8.4-10.5); GFR NON-AFRICAN AMERICAN > 60
[2018-10-04] MEDS: Cefepime IV 2 gm in NS 2 GM/100 ML BAG IVPB SCH ×2 (06:48→21:38)
[2018-10-04] MEDS: Vancomycin 1gm in NS 250ml 1 GM/250 ML BAG IVPB SCH ×2 (08:04→19:56)
--- NOTE | 2018-10-04 08:21 | CT ---
Date of service: 10/03/2018 PROCEDURE: CT HEAD WITHOUT CONTRAST. HISTORY: altered mental status COMPARISON: None available. TECHNIQUE: Axial computed tomography images were obtained through the head/brain without intravenous contrast. Radiation dose: Total exam DLP = 854.88 mGy-cm. This CT exam was performed using one or more of the following dose reduction techniques: Automated exposure control, adjustment of the mA and/or kV according to patient size, and/or use of iterative reconstruction technique. FINDINGS: HEMORRHAGE: No intracranial hemorrhage. BRAIN: No mass effect or edema. No atrophy or chronic microvascular ischemic changes. VENTRICLES: Unremarkable. No hydrocephalus. CALVARIUM: Unremarkable. PARANASAL SINUSES: Unremarkable as visualized. No significant inflammatory changes. MASTOID AIR CELLS: Unremarkable as visualized. No inflammatory changes. OTHER FINDINGS: None. IMPRESSION: Normal CT of the Head.
--- NOTE | 2018-10-04 10:40 | CON ---
DATE: 10/04/2018 CHIEF COMPLAINT: Confusion. HISTORY OF PRESENT ILLNESS: This is a 72-year-old man with history of coronary artery disease, status post CABG, hypertension, hyperlipidemia, type 2 diabetes mellitus, who comes to the hospital because he was feeling sick during the week and became disoriented half an hour prior to arrival, which progressively worsened throughout the day where he got confused to where he also started urinating on the floor and the bathroom. He had multiple episodes of vomiting. He has some mild abdominal pain but otherwise no headaches, no change in sense of vision, taste or smell. He is moving all extremities, following simple commands, mildly lethargic. His CAT scan of the head showed no acute intracranial abnormalities. No meningeal sign was seen upon neuro examination. No neck pain or headaches reported. PAST MEDICAL HISTORY: As above. ALLERGIES: NO KNOWN DRUG ALLERGIES. MEDICATIONS: Reviewed by nurse's reconciliation sheet. FAMILY HISTORY: Noncontributory. SOCIAL HISTORY: No illicit drug use, smoking, or EtOH abuse. REVIEW OF SYSTEMS: Fourteen-point review of systems is negative except as in HPI. PHYSICAL EXAMINATION: GENERAL: The patient is seen in bed, mildly lethargic, no acute distress. VITAL SIGNS: Temperature of 101.8, pulse rate 94, blood pressure 130/75, respiratory rate 18, oxygen saturation 98% by nasal cannula. HEENT: Atraumatic, normocephalic. PERRLA. Extraocular muscles intact. NECK: Supple. No JVD, no adenopathy. CARDIOPULMONARY: S1, S2. Normal rate and rhythm. No murmurs, rubs, or gallops. LUNGS: Clear to auscultation. No adventitious sounds. ABDOMEN: Soft, nontender, nondistended. Bowel sounds are present. EXTREMITIES: No clubbing. No cyanosis. Peripheral pulses 2+ bilaterally. NEUROLOGIC: The patient is mildly lethargic, but oriented to person and place. Recall after 5 minutes is 0/3. Poor attention span. Slow thought process. Cranial nerves II through XII are intact. Motor exam: Moves all extremities equally. Normal tone. No . Sensory exam, withdraws to pain, DTRs are 2+ throughout. Coordination: [id number] intact. Gait is deferred for now. LABORATORY DATA: Sodium is 135, potassium 4, chloride 98, carbon dioxide of 28, BUN of 30, creatinine 0.6, random glucose 268. ASSESSMENT: This is a 72-year-old man with history of coronary artery disease, status post coronary artery bypass grafting, hyperlipidemia, hypertension, type 2 diabetes mellitus, comes in for multiple episodes of vomiting and disorientation, confusion, lethargy, feeling generalized weakness, found to have elevated temperature of 101. Multiple episodes of vomiting, some mild abdominal pain and generalized weakness. So far, chest x-ray is normal. CAT scan of head showed no acute intracranial abnormality. No evidence of meningeal signs on neuro examination. No Brudzinski or Kernig sign present. No neck stiffness. At this time, transient confusional state could be secondary to underlying viral syndrome versus bacterial process. At this time, we will recommend: 1. Keep blood sugars between 140-180 since he is hyperglycemic. 2. Blood cultures, flu titers in terms of influenza. 3. We will get MRI of the brain with and without contrast to see any meningeal process or irritation. 4. Monitor electrolytes and follow with Infectious Disease recommendations as well. Thank you for this consult. Gerald Petersen MD
[2018-10-04] MEDS ORDERED: Magnesium Oxide 400 mg Tab UD PO ONE (12:52)
--- NOTE | 2018-10-04 13:46 | CP.PCM.PN ---
Subjective - Date & Time of Evaluation Date of Evaluation: 10/04/18 Time of Evaluation: 11:00 - Subjective Subjective: Clinical Care Coordination Note seen and examined 72 y/o M, presented to ED with AMS associated with multiple episodes of vomiting. Overnight patient developed a fever as high as 102.8, current fever 101.8, tachycardia and this am leukocytosis, source is unknown at this time. Patient continues to be altered and lethargic, vomiting has resolved no diarrhea. PMHx CAD with stents, CABG, CVA x3, COPD, DM, GERD, BPH and PAUMA. Objective - Vital Signs/Intake and Output Vital Signs (last 24 hours): Temp Pulse Resp BP Pulse Ox 101.8 F H 94 H 18 138/75 98 10/04/18 06:03 10/04/18 06:00 10/04/18 06:00 10/04/18 06:00 10/04/18 06:00 Intake and Output: 10/04/18 10/04/18 06:59 18:59 Intake Total 300 Balance 300 - Medications Medications: Current Medications Acetaminophen (Tylenol 650 Mg Supp) 650 mg RC Q4H PRN PRN Reason: Fever >100.4 F Last Admin: 10/04/18 06:03 Dose: 650 mg Acetaminophen (Tylenol 325mg Tab) 650 mg PO Q4 PRN PRN Reason: Fever >100.4 F Aspirin (Ecotrin) 81 mg PO DAILY [facility] Atorvastatin Calcium (Lipitor) 20 mg PO DAILY [facility] Clopidogrel Bisulfate (Plavix) 75 mg PO DAILY [facility] Cyclobenzaprine HCl (Flexeril) 10 mg PO DAILY [facility] Escitalopram Oxalate (Lexapro) 10 mg PO DAILY [facility] Cefepime HCl (Maxipime 2gm) 2 gm in 100 mls @ 100 mls/hr IVPB Q12 DORETHA; Protocol Stop: 10/09/18 06:46 Last Admin: 10/04/18 06:48 Dose: 100 mls/hr Vancomycin HCl (Vancomycin 1gm) 1 gm in 250 mls @ 167 mls/hr IVPB Q12H DORETHA; Protocol Last Admin: 10/04/18 08:04 Dose: 167 mls/hr Acyclovir 700 mg/ Sodium (Chloride) 100 mls @ 100 mls/hr IV Q8 DORETHA; Protocol Magnesium Oxide (Mag-Ox) 400 mg PO DAILY [facility] Metoprolol Tartrate (Lopressor) 12.5 mg PO DAILY [facility] Non-Formulary Medication (Celecoxib [Celebrex]) 200 mg PO DAILY [facility] Non-Formulary Medication (Dutasteride [Avodart]) 0.5 mg PO DAILY [facility] Non-Formulary Medication (Multivitamin/Iron/Folic Acid [Centrum Adults Tablet]) 1 tab PO DAILY [facility] Oseltamivir Phosphate (Tamiflu Cap) 75 mg PO BID [facility]; Protocol Stop: 10/09/18 11:16 Tamsulosin HCl (Flomax) 0.4 mg PO 1830 [facility] Vitamin E (Vitamin E 400 Units Cap) 400 intlu PO DAILY [facility] - Labs Labs: 10/04/18 05:30 10/04/18 05:30 - Constitutional Appears: No Acute Distress, Agitated, Confused, Chronically Ill - Head Exam Head Exam: ATRAUMATIC - Eye Exam Eye Exam: EOMI, PERRL - Neck Exam Neck Exam: Full ROM - Respiratory Exam Respiratory Exam: Decreased Breath Sounds, NORMAL BREATHING PATTERN - Cardiovascular Exam Cardiovascular Exam: REGULAR RHYTHM, +S1, +S2 - GI/Abdominal Exam GI & Abdominal Exam: Soft, Normal Bowel Sounds Additional comments: vomiting resolved - Rectal Exam Rectal Exam: Deferred - Extremities Exam Extremities Exam: Full ROM, Normal Capillary Refill - Neurological Exam Neurological Exam: Altered, Awake Neuro motor strength exam: Left Upper Extremity: 5, Right Upper Extremity: 5, Left Lower Extremity: 5, Right Lower Extremity: 5 - Psychiatric Exam Psychiatric exam: Agitated Additional comments: agitated with tactile stimuli - Skin Skin Exam: Dry, Normal Color, Warm Assessment and Plan - Assessment and Plan (Free Text) Assessment: A: AMS/lethargy Fever/leukocytosis unknown source Plan: P: AMS/lethargy MRI pending neurololgy following will await further recommendations Fever/Leukocytosis unknown source continue with antibiotic therapy as per ID Hypomagnesium, mag ox by mouth daily repeat labs in am CT chest pending mediations as per MAR will continue to follow closely PT evaluation pending CM/SW for discharge planning
--- NOTE | 2018-10-04 15:35 | CP.PCM.PN ---
<Doc Nathan - Last Filed: 10/04/18 15:30> Subjective - Date & Time of Evaluation Date of Evaluation: 10/04/18 Time of Evaluation: 15:30 - Subjective Subjective: Infectious disease progress note for Dr. Romano/Dr. Botello service - Dar Nathan PGY3 HPI: Patient is a 72yo male with history of CAD s/p PCI, CABG, CVAx3, COPD, DM, BPH and GERD that presented to [facility] with report of altered mental status associated with multiple episodes of nausea/vomiting and fevers. Patent unable to provide history due to altered status. Per chart, he had been feeling unwell at home and had difficulty ambulating as well. On arrival to the ED, CT Head was unremarkable and CXR revealed no active disease. ID consulted for evaluation of possible infectious etiology. 12point ROS limited due to patient status PMH: as stated above PSH: CABG, stents Allergies: NKDA Social Hx: no history of tobacco, alochol or illicit drug use Family Hx: noncontributory Objective - Vital Signs/Intake and Output Vital Signs (last 24 hours): Temp Pulse Resp BP Pulse Ox 101.8 F H 83 18 138/62 98 10/04/18 06:03 10/04/18 13:24 10/04/18 06:00 10/04/18 13:24 10/04/18 06:00 Intake and Output: 10/04/18 10/04/18 06:59 18:59 Intake Total 300 Balance 300 - Medications Medications: Current Medications Acetaminophen (Tylenol 650 Mg Supp) 650 mg RC Q4H PRN PRN Reason: Fever >100.4 F Last Admin: 10/04/18 06:03 Dose: 650 mg Acetaminophen (Tylenol 325mg Tab) 650 mg PO Q4 PRN PRN Reason: Fever >100.4 F Acetaminophen (Tylenol 325mg Tab) 650 mg PO Q6H PRN PRN Reason: Pain, moderate (4-7) Last Admin: 10/04/18 15:05 Dose: 650 mg Aspirin (Ecotrin) 81 mg PO DAILY [facility] Last Admin: 10/04/18 13:25 Dose: 81 mg Atorvastatin Calcium (Lipitor) 20 mg PO DAILY [facility] Last Admin: 10/04/18 13:23 Dose: 20 mg Clopidogrel Bisulfate (Plavix) 75 mg PO DAILY [facility] Last Admin: 10/04/18 13:25 Dose: 75 mg Cyclobenzaprine HCl (Flexeril) 10 mg PO DAILY [facility] Escitalopram Oxalate (Lexapro) 10 mg PO DAILY [facility] Last Admin: 10/04/18 13:23 Dose: 10 mg Cefepime HCl (Maxipime 2gm) 2 gm in 100 mls @ 100 mls/hr IVPB Q12 [facility]; Protocol Stop: 10/09/18 06:46 Last Admin: 10/04/18 06:48 Dose: 100 mls/hr Vancomycin HCl (Vancomycin 1gm) 1 gm in 250 mls @ 167 mls/hr IVPB Q12H [facility]; Protocol Last Admin: 10/04/18 08:04 Dose: 167 mls/hr Acyclovir 700 mg/ Sodium (Chloride) 100 mls @ 100 mls/hr IV Q8 [facility]; Protocol Last Admin: 10/04/18 13:25 Dose: 100 mls/hr Magnesium Oxide (Mag-Ox) 400 mg PO DAILY [facility] Metoprolol Tartrate (Lopressor) 12.5 mg PO DAILY [facility] Last Admin: 10/04/18 13:24 Dose: 12.5 mg Non-Formulary Medication (Celecoxib [Celebrex]) 200 mg PO DAILY [facility] Non-Formulary Medication (Dutasteride [Avodart]) 0.5 mg PO DAILY [facility] Non-Formulary Medication (Multivitamin/Iron/Folic Acid [Centrum Adults Tablet]) 1 tab PO DAILY [facility] Oseltamivir Phosphate (Tamiflu Cap) 75 mg PO BID [facility]; Protocol Stop: 10/09/18 11:16 Last Admin: 10/04/18 13:24 Dose: 75 mg Tamsulosin HCl (Flomax) 0.4 mg PO 1830 [facility] Vitamin E (Vitamin E 400 Units Cap) 400 intlu PO DAILY [facility] Last Admin: 10/04/18 13:23 Dose: 400 intlu - Labs Labs: 10/04/18 05:30 10/04/18 05:30 - Constitutional Appears: No Acute Distress - Head Exam Head Exam: ATRAUMATIC, NORMAL INSPECTION, NORMOCEPHALIC - Eye Exam Eye Exam: EOMI, PERRL - ENT Exam ENT Exam: Mucous Membranes Moist - Respiratory Exam Respiratory Exam: absent: Rales, Rhonchi, Wheezes - Cardiovascular Exam Cardiovascular Exam: +S1, +S2. absent: Gallop, JVD, Rubs - GI/Abdominal Exam GI & Abdominal Exam: Soft. absent: Distended, Firm, Guarding, Rigid, Tenderness, Rebound - Extremities Exam Extremities Exam: absent: Pedal Edema - Neurological Exam Neurological Exam: Alert, Awake. absent: Oriented x3 - Psychiatric Exam Psychiatric exam: Agitated - Skin Skin Exam: Dry, Intact, Normal Color, Warm Assessment and Plan - Assessment and Plan (Free Text) Plan: 72yo male with history of CAD s/p stent, CABG, TIA, CVA x3, DM presents with altered mental status in the setting of nausea/vomiting/fevers concerning for infectious etiology. ID consulted for evaluation 1. Altered mental status 2. r/o viral encephalitis 3. Fever of unknown origin 4. CAD 5. hx of CVA x3 6. DM -Patient started on tamiflu, acyclovir, cefepime and vancomycin for empiric coverage of infectious etiologies -Pancultures pending -MRSA screen pending -Procalcitonin negative -Rapid flu negative -MRI Brain has been ordered for further evaluation -Neurology consultation noted -CXR revealed no active disease -UA negative -Further treatment based on clinical course and cultures Patient seen and case discussed/reviewed with attending, Dr. Romano <Antione Romano - Last Filed: 10/04/18 17:00> Objective - Vital Signs/Intake and Output Vital Signs (last 24 hours): Temp Pulse Resp BP Pulse Ox 101.8 F H 83 18 138/62 98 10/04/18 06:03 10/04/18 13:24 10/04/18 06:00 10/04/18 13:24 10/04/18 06:00 Intake and Output: 10/04/18 10/04/18 06:59 18:59 Intake Total 300 Balance 300 - Medications Medications: Current Medications Acetaminophen (Tylenol 650 Mg Supp) 650 mg RC Q4H PRN PRN Reason: Fever >100.4 F Last Admin: 10/04/18 06:03 Dose: 650 mg Acetaminophen (Tylenol 325mg Tab) 650 mg PO Q4 PRN PRN Reason: Fever >100.4 F Acetaminophen (Tylenol 325mg Tab) 650 mg PO Q6H PRN PRN Reason: Pain, moderate (4-7) Last Admin: 10/04/18 15:05 Dose: 650 mg Aspirin (Ecotrin) 81 mg PO DAILY [facility] Last Admin: 10/04/18 13:25 Dose: 81 mg Atorvastatin Calcium (Lipitor) 20 mg PO DAILY [facility] Last Admin: 10/04/18 13:23 Dose: 20 mg Clopidogrel Bisulfate (Plavix) 75 mg PO DAILY [facility] Last Admin: 10/04/18 13:25 Dose: 75 mg Cyclobenzaprine HCl (Flexeril) 10 mg PO DAILY [facility] Escitalopram Oxalate (Lexapro) 10 mg PO DAILY [facility] Last Admin: 10/04/18 13:23 Dose: 10 mg Cefepime HCl (Maxipime 2gm) 2 gm in 100 mls @ 100 mls/hr IVPB Q12 [facility]; Protocol Stop: 10/09/18 06:46 Last Admin: 10/04/18 06:48 Dose: 100 mls/hr Vancomycin HCl (Vancomycin 1gm) 1 gm in 250 mls @ 167 mls/hr IVPB Q12H [facility]; Protocol Last Admin: 10/04/18 08:04 Dose: 167 mls/hr Acyclovir 700 mg/ Sodium (Chloride) 100 mls @ 100 mls/hr IV Q8 [facility]; Protocol Last Admin: 10/04/18 13:25 Dose: 100 mls/hr Magnesium Oxide (Mag-Ox) 400 mg PO DAILY [facility] Metoprolol Tartrate (Lopressor) 12.5 mg PO DAILY [facility] Last Admin: 10/04/18 13:24 Dose: 12.5 mg Non-Formulary Medication (Celecoxib [Celebrex]) 200 mg PO DAILY [facility] Last Admin: 10/04/18 16:19 Dose: Not Given Non-Formulary Medication (Dutasteride [Avodart]) 0.5 mg PO DAILY [facility] Last Admin: 10/04/18 16:19 Dose: Not Given Non-Formulary Medication (Multivitamin/Iron/Folic Acid [Centrum Adults Tablet]) 1 tab PO DAILY [facility] Last Admin: 10/04/18 16:20 Dose: Not Given Oseltamivir Phosphate (Tamiflu Cap) 75 mg PO BID [facility]; Protocol Stop: 10/09/18 11:16 Last Admin: 10/04/18 13:24 Dose: 75 mg Tamsulosin HCl (Flomax) 0.4 mg PO 1830 [facility] Vitamin E (Vitamin E 400 Units Cap) 400 intlu PO DAILY [facility] Last Admin: 10/04/18 13:23 Dose: 400 intlu - Labs Labs: 10/04/18 05:30 10/04/18 05:30 Assessment and Plan - Assessment and Plan (Free Text) Plan: Infectious diseases Attending Physician Attestation Patient seen and examined, discussed with anesthesiology medical doctor. I have reviewed the patient's history of present illness, past medical, social, personal and family histories, pertinent physical exam findings, course so far in this hospital admission, pertinent laboratory and imaging results. I agree with the above findings, assessment and plan. In addition, we have started Vancomycin, Cefepime for this patient with SIRS, R/O sepsis with encephalopathy, R/O acute viral synd ann-marie. Follow up blood, urine cx. CXR is clear. Will also add Acyclovir pending MRI brain. Start Tamiflu R/O Influenza. Patient may need spinal tap if no source identified.
[2018-10-04] MEDS: Non Formulary Medication (Celecoxib [Celebrex] 200 MG) PO SCH (16:19)
[2018-10-04] MEDS: IRON PO SCH (16:20)
[2018-10-04] MEDS: FOLIC ACID PO SCH (16:20)
[2018-10-04] MEDS: MULTIVITAMIN PO SCH (16:20)
[2018-10-05] MEDS: Vancomycin 1gm in NS 250ml 1 GM/250 ML BAG IVPB SCH ×2 (05:46→18:12)
[2018-10-05 07:37] LABS: BASO # 0.01 K/mm3 (0.0-2.0); BASO % 0.1 % (0.0-3.0); EOS % 0.1 % (1.5-5.0); GRAN # 8.21 (1.4-6.5); GRAN % 77.3 % (50.0-68.0); HEMOGLOBIN 14.3 g/dL (14.0-18.0); LYMPH % 18.4 % (22.0-35.0); MEAN CELL VOLUME 89.9 fl (80.0-105.0); MEAN CORPUSCULAR HEMOGLOBIN 30.8 pg (25.0-35.0); MEAN CORPUSCULAR HGB CONC 34.3 g/dl (31.0-37.0); MEAN PLATELET VOLUME 10.3 fl (7.0-11.0); MONO # 0.4 (0.1-0.6); MONO % 4.1 % (1.0-6.0); RBC 4.64 10^6/uL (3.5-6.1); RED CELL DISTRIBUTION WIDTH 13.1 % (11.5-14.5); WHITE BLOOD COUNT 10.6 10^3/uL (4.5-11.0)
[2018-10-05 08:28] LABS: ALB/GLOB RATIO 1.1 (1.1-1.8); ALBUMIN 3.7 g/dL (3.0-4.8); ALT/SGPT 27 U/L (7-56); AST/SGOT 28 U/L (17-59); BLOOD UREA NITROGEN 28 mg/dL (7-21); CALCIUM 8.8 mg/dL (8.4-10.5); GFR NON-AFRICAN AMERICAN > 60
[2018-10-05] MEDS: FOLIC ACID PO SCH (09:38)
[2018-10-05] MEDS: MULTIVITAMIN PO SCH (09:38)
[2018-10-05] MEDS: IRON PO SCH (09:38)
[2018-10-05] MEDS: Non Formulary Medication (Celecoxib [Celebrex] 200 MG) PO SCH (09:38)
[2018-10-05] MEDS: Cefepime IV 2 gm in NS 2 GM/100 ML BAG IVPB SCH ×2 (09:40→22:11)
[2018-10-05] MEDS: Magnesium Oxide 400 mg Tab UD PO SCH (09:43)
--- NOTE | 2018-10-05 11:18 | CT ---
Date of service: 10/05/2018 PROCEDURE: CT Chest without contrast HISTORY: r/o PNA COMPARISON: Chest x-ray 10/03/2018 TECHNIQUE: Contiguous axial images were obtained through the chest without intravenous contrast enhancement. Sagittal and coronal reconstructions were performed. Radiation dose: Total exam DLP = 415.31 mGy-cm. This CT exam was performed using one or more of the following dose reduction techniques: Automated exposure control, adjustment of the mA and/or kV according to patient size, and/or use of iterative reconstruction technique. FINDINGS: LUNGS: Clear lungs. Visualized airway clear MEDIASTINUM: Unremarkable thoracic aorta. No aneurysm. Normal sized heart. Main pulmonary artery unremarkable. No vascular congestion. No lymphadenopathy. Aortic calcification PLEURA: No pleural fluid. No pneumothorax. BONES: No fracture. No destructive lesion. UPPER ABDOMEN: Grossly unremarkable. OTHER FINDINGS: There is mural thickening throughout the esophagus suspicious for esophagitis. IMPRESSION: No evidence of pneumonia. Mural thickening in the esophagus suspicious for esophagitis
--- NOTE | 2018-10-06 01:14 | PN ---
DATE: 10/05/2018 SUBJECTIVE: The patient is seen in bed, in no acute distress. Room 263, bed 1. No fevers this morning. No nausea or vomiting. PHYSICAL EXAMINATION: GENERAL: He is comfortable. VITAL SIGNS: Temperature is 98, T-max last night was 101.8; respiratory rate of 18 and it was up to 24 earlier on admission; and heart rate of 73 and it was up to 106 earlier on exam. HEENT: Unremarkable. NECK: Supple. LUNGS: Have decreased breath sounds. HEART: Normal S1, S2. ABDOMEN: Soft, nontender. No rebound, no guarding. No masses. LABORATORY DATA: Reveals white count is down to 10,600. It was 12,000 yesterday and patient has 83% granulocytosis. Chemistries reveals a BUN of 17, creatinine of 0.6, glucose is 263 and procalcitonin is less than 0.05. Urinalysis is noted. Influenza is negative. Microbiology reveals the blood cultures are negative and the patient had a chest x-ray. No active lung disease and Dr. Petersen's consultation is reviewed. ASSESSMENT AND PLAN: A 72-year-old with a history of coronary artery disease, coronary artery bypass graft, cerebrovascular accident, chronic obstructive lung disease, diabetes mellitus, gastroesophageal reflux disease admitted with a change in mental status and systemic inflammatory response syndrome, currently on Tamiflu, acyclovir vancomycin and cefepime. Review of orders reveals the cefepime is active. Tamiflu is active. Vancomycin is active and acyclovir as active. Influenza is negative. Urinalysis is unremarkable. Procalcitonin is negative and the patient did have 93% neutrophils. The patient's CT scan of the head is negative.. We will check on the MRI and initial culture results. The patient appears to be responding. We will make further recommendations. Osmany Botello MD
[2018-10-06] MEDS: Vancomycin 1gm in NS 250ml 1 GM/250 ML BAG IVPB SCH ×2 (06:50→17:50)
[2018-10-06] MEDS: Magnesium Oxide 400 mg Tab UD PO SCH (10:56)
[2018-10-06] MEDS: Cefepime IV 2 gm in NS 2 GM/100 ML BAG IVPB SCH ×2 (10:56→22:10)
[2018-10-06] MEDS: Non Formulary Medication (Celecoxib [Celebrex] 200 MG) PO SCH (10:57)
[2018-10-06] MEDS: IRON PO SCH (10:58)
[2018-10-06] MEDS: FOLIC ACID PO SCH (10:58)
[2018-10-06] MEDS: MULTIVITAMIN PO SCH (10:58)
--- NOTE | 2018-10-06 12:55 | PN ---
DATE: 10/05/2018 SUBJECTIVE: The patient was seen this evening in room 263, bed 1 resting comfortably in bed. He is awake and alert, certainly understands me and everything I have to say, although he is still having trouble with expressive aphasia. At times he seems to be able to pull his words together and speak in sentences. Other times, he has much difficulty finding words and naming objects. He is able to repeat words after me such as stethoscope, wrist watch, etc; but has trouble naming the ring, wrist watch or the pen. I do not see any focal motor deficit, although the expressive aphasia is quite significant and obvious and markedly improved from what was reported at the time of admission. PHYSICAL EXAMINATION: LUNGS: Good air exchange, right and left. HEART: Regular and nontachycardic. ABDOMEN: Soft. IMPRESSION: I suspect it is a CVA/transient ischemic attack related. PLAN: We will look forward to MRI in the morning and discuss with Neurology. Of note is that the initial restlessness and agitation has markedly improved. Droplet precautions are still in effect for possible viral syndrome. I will need to talk to ID about discontinuing those in view of the clinical setting. Josué Wagner MD
[2018-10-06] MEDS: Nystatin 100,000 Units/ml Oral Susp 5 ml UD PO SCH ×3 (13:48→22:11)
--- NOTE | 2018-10-06 15:56 | CP.PCM.PCO ---
Physician Communication Note - Physician Communication Note Physician Communication Note: mental status better. Awaiting mRI brain .
--- NOTE | 2018-10-06 16:02 | CP.PCM.PN ---
<Kulwinder Braden - Last Filed: 10/06/18 15:59> Subjective - Date & Time of Evaluation Date of Evaluation: 10/06/18 Time of Evaluation: 11:00 - Subjective Subjective: ID Progress Note - Dr. Romano Patient was seen and examined at bedside. Pt mentation improved, no fevers overnight. No acute distress at this time. Denied fever, chills, sob, chest pains, abdominal pains, nausea or vomiting. To be premedicated prior to MRI today. Objective - Vital Signs/Intake and Output Vital Signs (last 24 hours): Temp Pulse Resp BP Pulse Ox 98.7 F 74 19 131/69 92 L 10/06/18 12:00 10/06/18 14:00 10/06/18 12:00 10/06/18 12:00 10/06/18 06:00 Intake and Output: 10/06/18 10/06/18 06:59 18:59 Intake Total 521 Balance 521 - Medications Medications: Current Medications Acetaminophen (Tylenol 650 Mg Supp) 650 mg RC Q4H PRN PRN Reason: Fever >100.4 F Last Admin: 10/04/18 06:03 Dose: 650 mg Acetaminophen (Tylenol 325mg Tab) 650 mg PO Q4 PRN PRN Reason: Fever >100.4 F Acetaminophen (Tylenol 325mg Tab) 650 mg PO Q6H PRN PRN Reason: Pain, moderate (4-7) Last Admin: 10/04/18 15:05 Dose: 650 mg Aspirin (Ecotrin) 81 mg PO DAILY [facility] Last Admin: 10/06/18 10:56 Dose: 81 mg Atorvastatin Calcium (Lipitor) 20 mg PO DAILY [facility] Last Admin: 10/06/18 10:56 Dose: 20 mg Clopidogrel Bisulfate (Plavix) 75 mg PO DAILY [facility] Last Admin: 10/06/18 10:56 Dose: 75 mg Cyclobenzaprine HCl (Flexeril) 10 mg PO DAILY [facility] Last Admin: 10/06/18 10:56 Dose: 10 mg Escitalopram Oxalate (Lexapro) 10 mg PO DAILY [facility] Last Admin: 10/06/18 10:56 Dose: 10 mg Haloperidol Lactate (Haldol) 5 mg IM ONCE PRN; Protocol PRN Reason: Agitation Cefepime HCl (Maxipime 2gm) 2 gm in 100 mls @ 100 mls/hr IVPB Q12 [facility]; Protocol Stop: 10/09/18 06:46 Last Admin: 10/06/18 10:56 Dose: 100 mls/hr Vancomycin HCl (Vancomycin 1gm) 1 gm in 250 mls @ 167 mls/hr IVPB Q12H [facility]; Protocol Last Admin: 10/06/18 06:50 Dose: 167 mls/hr Acyclovir 700 mg/ Sodium (Chloride) 100 mls @ 100 mls/hr IV Q8 [facility]; Protocol Last Admin: 10/06/18 13:48 Dose: 100 mls/hr Magnesium Oxide (Mag-Ox) 400 mg PO DAILY [facility] Last Admin: 10/06/18 10:56 Dose: 400 mg Metoprolol Tartrate (Lopressor) 12.5 mg PO DAILY [facility] Last Admin: 10/06/18 10:56 Dose: 12.5 mg Non-Formulary Medication (Celecoxib [Celebrex]) 200 mg PO DAILY [facility] Last Admin: 10/06/18 10:57 Dose: Not Given Non-Formulary Medication (Dutasteride [Avodart]) 0.5 mg PO DAILY [facility] Last Admin: 10/06/18 10:57 Dose: Not Given Non-Formulary Medication (Multivitamin/Iron/Folic Acid [Centrum Adults Tablet]) 1 tab PO DAILY [facility] Last Admin: 10/06/18 10:58 Dose: Not Given Nystatin (Nystatin Oral Susp) 5 ml PO QID [facility] Last Admin: 10/06/18 13:48 Dose: 5 ml Oseltamivir Phosphate (Tamiflu Cap) 75 mg PO BID [facility]; Protocol Stop: 10/09/18 11:16 Last Admin: 10/06/18 10:56 Dose: 75 mg Pantoprazole Sodium (Protonix Inj) 40 mg IVP DAILY [facility] Last Admin: 10/06/18 12:08 Dose: 40 mg Tamsulosin HCl (Flomax) 0.4 mg PO 1830 [facility] Last Admin: 10/05/18 18:11 Dose: 0.4 mg Vitamin E (Vitamin E 400 Units Cap) 400 intlu PO DAILY [facility] Last Admin: 10/06/18 10:56 Dose: 400 intlu - Labs Labs: 10/05/18 07:30 10/05/18 07:30 - Constitutional Appears: No Acute Distress - Head Exam Head Exam: ATRAUMATIC, NORMAL INSPECTION, NORMOCEPHALIC - Eye Exam Eye Exam: EOMI, Normal appearance, PERRL Pupil Exam: NORMAL ACCOMODATION, PERRL - ENT Exam ENT Exam: Mucous Membranes Moist, Normal Exam - Respiratory Exam Respiratory Exam: Clear to Ausculation Bilateral, NORMAL BREATHING PATTERN - Cardiovascular Exam Cardiovascular Exam: Tachycardia, +S1, +S2. absent: Murmur - GI/Abdominal Exam GI & Abdominal Exam: Soft, Normal Bowel Sounds. absent: Tenderness - Neurological Exam Neurological Exam: Alert, Awake, CN II-XII Intact - Psychiatric Exam Psychiatric exam: Normal Affect, Normal Mood - Skin Skin Exam: Dry, Intact, Normal Color, Warm Assessment and Plan - Assessment and Plan (Free Text) Assessment: 72yo male with history of CAD s/p stent, CABG, TIA, CVA x3, DM presents with altered mental status in the setting of nausea/vomiting/fevers concerning for infectious etiology. ID consulted for evaluation 1. Altered mental status, improving 2. SIRS, R/O sepsis with encephalopathy, R/O acute viral syndrome. 3. Fever of unknown origin 4. CAD 5. hx of CVA x3 6. DM -Patient started on tamiflu, acyclovir, cefepime and vancomycin for empiric coverage of infectious etiologies, pending MRI -SIRS, R/O sepsis with encephalopathy, R/O acute viral syndrome. Follow up blood, urine cx. CXR is clear. -MRSA screen pending -Procalcitonin negative -Rapid flu negative -MRI Brain still pending - CT revealed esophagitis -Neurology consultation noted, Dr. Corado recs pending after MRI -CXR revealed no active disease -UA negative Patient seen and case discussed/reviewed with attending, Dr. Romano <Antione Romano - Last Filed: 10/06/18 18:06> Objective - Vital Signs/Intake and Output Vital Signs (last 24 hours): Temp Pulse Resp BP Pulse Ox 98.7 F 74 19 131/69 92 L 10/06/18 12:00 10/06/18 14:00 10/06/18 12:00 10/06/18 12:00 10/06/18 06:00 Intake and Output: 10/06/18 10/06/18 06:59 18:59 Intake Total 521 Balance 521 - Medications Medications: Current Medications Acetaminophen (Tylenol 650 Mg Supp) 650 mg RC Q4H PRN PRN Reason: Fever >100.4 F Last Admin: 10/04/18 06:03 Dose: 650 mg Acetaminophen (Tylenol 325mg Tab) 650 mg PO Q4 PRN PRN Reason: Fever >100.4 F Acetaminophen (Tylenol 325mg Tab) 650 mg PO Q6H PRN PRN Reason: Pain, moderate (4-7) Last Admin: 10/04/18 15:05 Dose: 650 mg Aspirin (Ecotrin) 81 mg PO DAILY [facility] Last Admin: 10/06/18 10:56 Dose: 81 mg Atorvastatin Calcium (Lipitor) 20 mg PO DAILY [facility] Last Admin: 10/06/18 10:56 Dose: 20 mg Clopidogrel Bisulfate (Plavix) 75 mg PO DAILY [facility] Last Admin: 10/06/18 10:56 Dose: 75 mg Cyclobenzaprine HCl (Flexeril) 10 mg PO DAILY [facility] Last Admin: 10/06/18 10:56 Dose: 10 mg Escitalopram Oxalate (Lexapro) 10 mg PO DAILY [facility] Last Admin: 10/06/18 10:56 Dose: 10 mg Haloperidol Lactate (Haldol) 5 mg IM ONCE PRN; Protocol PRN Reason: Agitation Cefepime HCl (Maxipime 2gm) 2 gm in 100 mls @ 100 mls/hr IVPB Q12 [facility]; Protocol Stop: 10/09/18 06:46 Last Admin: 10/06/18 10:56 Dose: 100 mls/hr Vancomycin HCl (Vancomycin 1gm) 1 gm in 250 mls @ 167 mls/hr IVPB Q12H [facility]; Protocol Last Admin: 10/06/18 17:50 Dose: 167 mls/hr Acyclovir 700 mg/ Sodium (Chloride) 100 mls @ 100 mls/hr IV Q8 [facility]; Protocol Last Admin: 10/06/18 13:48 Dose: 100 mls/hr Lorazepam (Ativan) 1 mg IVP ONCE PRN; Protocol PRN Reason: Prior to MRI Stop: 10/06/18 23:59 Magnesium Oxide (Mag-Ox) 400 mg PO DAILY [facility] Last Admin: 10/06/18 10:56 Dose: 400 mg Metoprolol Tartrate (Lopressor) 12.5 mg PO DAILY [facility] Last Admin: 10/06/18 10:56 Dose: 12.5 mg Non-Formulary Medication (Celecoxib [Celebrex]) 200 mg PO DAILY [facility] Last Admin: 10/06/18 10:57 Dose: Not Given Non-Formulary Medication (Dutasteride [Avodart]) 0.5 mg PO DAILY [facility] Last Admin: 10/06/18 10:57 Dose: Not Given Non-Formulary Medication (Multivitamin/Iron/Folic Acid [Centrum Adults Tablet]) 1 tab PO DAILY [facility] Last Admin: 10/06/18 10:58 Dose: Not Given Nystatin (Nystatin Oral Susp) 5 ml PO QID [facility] Last Admin: 10/06/18 17:49 Dose: 5 ml Oseltamivir Phosphate (Tamiflu Cap) 75 mg PO BID [facility]; Protocol Stop: 10/09/18 11:16 Last Admin: 10/06/18 17:49 Dose: 75 mg Pantoprazole Sodium (Protonix Inj) 40 mg IVP DAILY [facility] Last Admin: 10/06/18 12:08 Dose: 40 mg Tamsulosin HCl (Flomax) 0.4 mg PO 1830 [facility] Last Admin: 10/06/18 17:50 Dose: 0.4 mg Vitamin E (Vitamin E 400 Units Cap) 400 intlu PO DAILY [facility] Last Admin: 10/06/18 10:56 Dose: 400 intlu - Labs Labs: 10/05/18 07:30 10/05/18 07:30 Assessment and Plan - Assessment and Plan (Free Text) Assessment: Infectious diseases Attending Physician Attestation Patient seen and examined, discussed with medical laboratory technician. I have reviewed the patient's history of present illness, past medical, social, personal and family histories, pertinent physical exam findings, course so far in this hospital admission, pertinent laboratory and imaging results. I agree with the above findings, assessment and plan. In addition, will continue Vancomycin, Cefepime, Acycolvir for patient with SIRS, R/O sepsis from meningoencephalitis. For MRI brain today and will follow up results. Follow up final culture results, which are negative so far.
--- NOTE | 2018-10-06 16:07 | CP.PCM.CON ---
History of Present Illness - History of Present Illness History of Present Illness: Gastroenterology Fellow/PGY6 Consult Note 72 year old male with PMH of CAD s/p PCI, CABG, CVA, COPD, Diabetes, and BPH presenting with altered mental status. at beside, notes that patient did not feel well with associated nausea. He proceeded to repetitively attempt to force himself to vomit by retching and osmany abdominal wall resulting in three consecutive episodes of vomiting. Noted associated fever and progressive worsening of mental status leading to ER presentation. Since admission, active treatment of altered mental status with improving mentation with workup in progress to rule out a viral syndrome or stroke. GI consultation for note of esophagitis on CT chest. notes patient underwent an EGD "many years ago" endorsed to be normal. Family History- unable to confirm with present altered mental status Social History- on record review: denies tobacco, alcohol, or illicit drug use Surgical History- on record review: CABG, stents Review of Systems - Review of Systems Review of Systems: 12-point review of systems negative except for as above Past Patient History - Infectious Disease Hx of Infectious Diseases: None - Tetanus Immunizations Tetanus Immunization: Unknown - Past Social History Smoking Status: Unknown If Ever Smoked - CARDIAC Hx Cardiac Disorders: Yes (CAD with stents, CABG) - PULMONARY Hx Chronic Obstructive Pulmonary Disease (COPD): Yes - NEUROLOGICAL HX Cerebrovascular Accident: Yes - HEENT Hx HEENT Problems: No - RENAL Hx Chronic Kidney Disease: No - ENDOCRINE/METABOLIC Hx Diabetes Mellitus Type 2: Yes - HEMATOLOGICAL/ONCOLOGICAL Hx Blood Disorders: No - INTEGUMENTARY Hx Dermatological Problems: No - MUSCULOSKELETAL/RHEUMATOLOGICAL Hx Musculoskeletal Disorders: Yes Hx Falls: Yes - GASTROINTESTINAL Hx Gastrointestinal Disorders: No - GENITOURINARY/GYNECOLOGICAL Hx Genitourinary Disorders: Yes Hx Prostate Problems: Yes - PSYCHIATRIC Hx Psychophysiologic Disorder: Yes Hx Anxiety: Yes - SURGICAL HISTORY Hx Surgeries: No Hx Cardiac Catheterization: Yes - ANESTHESIA Hx Anesthesia Reactions: No Hx Malignant Hyperthermia: No Meds Allergies/Adverse Reactions: Allergies Allergy/AdvReac Type Severity Reaction Status Date / Time No Known Allergies Allergy Verified 10/03/18 15:41 - Medications Medications: Current Medications Acetaminophen (Tylenol 650 Mg Supp) 650 mg RC Q4H PRN PRN Reason: Fever >100.4 F Last Admin: 10/04/18 06:03 Dose: 650 mg Acetaminophen (Tylenol 325mg Tab) 650 mg PO Q4 PRN PRN Reason: Fever >100.4 F Acetaminophen (Tylenol 325mg Tab) 650 mg PO Q6H PRN PRN Reason: Pain, moderate (4-7) Last Admin: 10/04/18 15:05 Dose: 650 mg Aspirin (Ecotrin) 81 mg PO DAILY [facility] Last Admin: 10/06/18 10:56 Dose: 81 mg Atorvastatin Calcium (Lipitor) 20 mg PO DAILY [facility] Last Admin: 10/06/18 10:56 Dose: 20 mg Clopidogrel Bisulfate (Plavix) 75 mg PO DAILY [facility] Last Admin: 10/06/18 10:56 Dose: 75 mg Cyclobenzaprine HCl (Flexeril) 10 mg PO DAILY [facility] Last Admin: 10/06/18 10:56 Dose: 10 mg Escitalopram Oxalate (Lexapro) 10 mg PO DAILY [facility] Last Admin: 10/06/18 10:56 Dose: 10 mg Haloperidol Lactate (Haldol) 5 mg IM ONCE PRN; Protocol PRN Reason: Agitation Cefepime HCl (Maxipime 2gm) 2 gm in 100 mls @ 100 mls/hr IVPB Q12 [facility]; Protocol Stop: 10/09/18 06:46 Last Admin: 10/06/18 10:56 Dose: 100 mls/hr Vancomycin HCl (Vancomycin 1gm) 1 gm in 250 mls @ 167 mls/hr IVPB Q12H [facility]; Protocol Last Admin: 10/06/18 06:50 Dose: 167 mls/hr Acyclovir 700 mg/ Sodium (Chloride) 100 mls @ 100 mls/hr IV Q8 [facility]; Protocol Last Admin: 10/06/18 13:48 Dose: 100 mls/hr Magnesium Oxide (Mag-Ox) 400 mg PO DAILY [facility] Last Admin: 10/06/18 10:56 Dose: 400 mg Metoprolol Tartrate (Lopressor) 12.5 mg PO DAILY [facility] Last Admin: 10/06/18 10:56 Dose: 12.5 mg Non-Formulary Medication (Celecoxib [Celebrex]) 200 mg PO DAILY [facility] Last Admin: 10/06/18 10:57 Dose: Not Given Non-Formulary Medication (Dutasteride [Avodart]) 0.5 mg PO DAILY [facility] Last Admin: 10/06/18 10:57 Dose: Not Given Non-Formulary Medication (Multivitamin/Iron/Folic Acid [Centrum Adults Tablet]) 1 tab PO DAILY [facility] Last Admin: 10/06/18 10:58 Dose: Not Given Nystatin (Nystatin Oral Susp) 5 ml PO QID [facility] Last Admin: 10/06/18 13:48 Dose: 5 ml Oseltamivir Phosphate (Tamiflu Cap) 75 mg PO BID [facility]; Protocol Stop: 10/09/18 11:16 Last Admin: 10/06/18 10:56 Dose: 75 mg Pantoprazole Sodium (Protonix Inj) 40 mg IVP DAILY [facility] Last Admin: 10/06/18 12:08 Dose: 40 mg Tamsulosin HCl (Flomax) 0.4 mg PO 1830 [facility] Last Admin: 10/05/18 18:11 Dose: 0.4 mg Vitamin E (Vitamin E 400 Units Cap) 400 intlu PO DAILY [facility] Last Admin: 10/06/18 10:56 Dose: 400 intlu Physical Exam - Constitutional Appears: Non-toxic, No Acute Distress - Head Exam Head Exam: ATRAUMATIC, NORMOCEPHALIC - Eye Exam Eye Exam: EOMI, PERRL. absent: Scleral icterus Pupil Exam: PERRL. absent: Miosis, Mydriatic - ENT Exam ENT Exam: Mucous Membranes Moist, Normal Oropharynx - Neck Exam Neck exam: Positive for: Full Rom, Normal Inspection - Respiratory Exam Respiratory Exam: Clear to Auscultation Bilateral. absent: Rales, Rhonchi, Wheezes - Cardiovascular Exam Cardiovascular Exam: RRR, +S1, +S2. absent: Gallop, Rubs - GI/Abdominal Exam GI & Abdominal Exam: Normal Bowel Sounds, Soft. absent: Distended, Firm, Guarding, Organomegaly, Rebound, Rigid, Tenderness - Extremities Exam Extremities exam: Positive for: normal inspection. Negative for: pedal edema - Neurological Exam Neurological exam: Alert Additional comments: oriented to self and time - Psychiatric Exam Psychiatric exam: Normal Affect, Normal Mood - Skin Skin Exam: Dry, Intact, Normal Color, Warm Results - Vital Signs Recent Vital Signs: Last Vital Signs Temp 98.7 F 10/06/18 12:00 Pulse 74 10/06/18 14:00 Resp 19 10/06/18 12:00 BP 131/69 10/06/18 12:00 Pulse Ox 92 L 10/06/18 06:00 - Labs Result Diagrams: 10/05/18 07:30 11/29/18 07:30 Assessment & Plan - Assessment and Plan (Free Text) Assessment: 72 year old male with PMH of CAD s/p PCI, CABG, CVA, COPD, Diabetes, and BPH presenting with altered mental status, fever, and vomiting. Active treatment of altered mental status with improving mentation with workup in progress to rule out a viral syndrome or stroke. GI consultation for note of esophagitis on CT chest. notes patient underwent an EGD "many years ago" endorsed to be normal. Plan: -eosinophilic esophagitis less likely given advanced age, no reported symptom manifestations -diffuse thickening atypical for a underlying neoplasm or traore's esophagus -no history of radiation exposure or cirrhosis w/ varices -will benefit from additional workup with esophagram and EGD once medically optimized and off droplet precautions for further evaluation -dyspepsia- PPI ACB -tolerating heart healthy diet -cultures negative to date -MRI Brain pending -Neurology and ID managing- follow up recommendations -will follow clinical course
[2018-10-07] MEDS: Vancomycin 1gm in NS 250ml 1 GM/250 ML BAG IVPB SCH ×2 (06:14→19:04)
[2018-10-07 07:14] LABS: BLOOD UREA NITROGEN 21 mg/dL (7-21); CALCIUM 8.2 mg/dL (8.4-10.5); GFR NON-AFRICAN AMERICAN > 60
[2018-10-07 07:36] LABS: MEAN CORPUSCULAR HGB CONC 33.3 g/dl (31.0-37.0); RBC 4.2 10^6/uL (3.5-6.1); WHITE BLOOD COUNT 7.4 10^3/uL (4.5-11.0)
[2018-10-07 07:37] LABS: BASO # 0.02 K/mm3 (0.0-2.0); BASO % 0.3 % (0.0-3.0); EOS # 0.2 (0.0-0.7); EOS % 3.2 % (1.5-5.0); GRAN # 5.39 (1.4-6.5); GRAN % 72.6 % (50.0-68.0); LYMPH # 0.9 (1.2-3.4); LYMPH % 12.5 % (22.0-35.0); MEAN CELL VOLUME 92.9 fl (80.0-105.0); MEAN PLATELET VOLUME 11.4 fl (7.0-11.0); MONO # 0.9 (0.1-0.6); MONO % 11.4 % (1.0-6.0)
--- NOTE | 2018-10-07 07:40 | PN ---
DATE: 10/07/2018 SUBJECTIVE: The patient is in bed, in no acute distress, nontoxic. PHYSICAL EXAMINATION: VITAL SIGNS: Temperature is 99, blood pressure is 140/50, respiratory rate of 18, heart rate of 100. Examination of HEENT is unremarkable. NECK: Supple. LUNGS: Have decreased breath sounds. HEART: Normal S1 and S2. ABDOMEN: Soft, nontender. LABORATORY EXAMINATION: Reveals the white count is 10,600. Chemistries reveal a BUN of 28, creatinine of 0.5. Procalcitonin is less than 0.05. Urinalysis is noted. Serology is noted. Microbiology reveals the blood cultures are negative. Urine cultures are negative. ASSESSMENT AND PLAN: This is a 72-year-old male who was seen with history of coronary artery disease, coronary artery bypass graft, cerebrovascular accident, chronic obstructive lung disease, diabetes. Admitted with change in mental status and systemic inflammatory response syndrome. The patient had a CAT scan of the chest, no evidence of pneumonia. He is admitted with systemic inflammatory response syndrome which is improved. Dr. Gerald Petersen's communication report is reviewed and appreciated. The patient is currently on cefepime, vancomycin, acyclovir. Awaiting for MRI. Neurologically, he is much improved. We will follow with you. Osmany Botello MD
[2018-10-07] MEDS: Magnesium Oxide 400 mg Tab UD PO SCH (10:02)
[2018-10-07] MEDS: Cefepime IV 2 gm in NS 2 GM/100 ML BAG IVPB SCH ×2 (10:03→22:18)
[2018-10-07] MEDS: Nystatin 100,000 Units/ml Oral Susp 5 ml UD PO SCH ×4 (10:03→22:18)
[2018-10-07] MEDS: MULTIVITAMIN PO SCH (10:04)
[2018-10-07] MEDS: FOLIC ACID PO SCH (10:04)
[2018-10-07] MEDS: IRON PO SCH (10:04)
[2018-10-07] MEDS: Non Formulary Medication (Celecoxib [Celebrex] 200 MG) PO SCH (10:04)
[2018-10-07] MEDS ORDERED: Gadodiamide 287 MG/ML VIAL (15ML) IV ONE (15:09)
--- NOTE | 2018-10-07 16:43 | CP.PCM.PN ---
<ReedorlandoRiamirta - Last Filed: 10/07/18 16:44> Subjective - Date & Time of Evaluation Date of Evaluation: 10/07/18 Time of Evaluation: 12:50 - Subjective Subjective: PGY-4 GI Fellow Prog Note Pt lying in bed eating lunch when seen this PM. States that he his doing OK and eating OK. On further questioning he states that date is December 2017 and that he is in a hotel in [place]. Nursing reports that patient had been hallucinating earlier. Unable to obtain full ROS due to clinical condition Objective - Vital Signs/Intake and Output Vital Signs (last 24 hours): Temp Pulse Resp BP Pulse Ox 99.2 F 87 20 167/88 H 95 10/07/18 12:00 10/07/18 14:00 10/07/18 12:00 10/07/18 12:00 10/07/18 00:01 Intake and Output: 10/07/18 10/07/18 06:59 18:59 Intake Total 780 Balance 780 - Medications Medications: Current Medications Acetaminophen (Tylenol 650 Mg Supp) 650 mg RC Q4H PRN PRN Reason: Fever >100.4 F Last Admin: 10/04/18 06:03 Dose: 650 mg Acetaminophen (Tylenol 325mg Tab) 650 mg PO Q4 PRN PRN Reason: Fever >100.4 F Acetaminophen (Tylenol 325mg Tab) 650 mg PO Q6H PRN PRN Reason: Pain, moderate (4-7) Last Admin: 10/04/18 15:05 Dose: 650 mg Aspirin (Ecotrin) 81 mg PO DAILY [facility] Last Admin: 10/07/18 10:02 Dose: 81 mg Atorvastatin Calcium (Lipitor) 20 mg PO DAILY [facility] Last Admin: 10/07/18 10:02 Dose: 20 mg Clopidogrel Bisulfate (Plavix) 75 mg PO DAILY [facility] Last Admin: 10/07/18 10:02 Dose: 75 mg Escitalopram Oxalate (Lexapro) 10 mg PO DAILY [facility] Last Admin: 10/07/18 10:02 Dose: 10 mg Cefepime HCl (Maxipime 2gm) 2 gm in 100 mls @ 100 mls/hr IVPB Q12 [facility]; Protocol Stop: 10/09/18 06:46 Last Admin: 10/07/18 10:03 Dose: 100 mls/hr Vancomycin HCl (Vancomycin 1gm) 1 gm in 250 mls @ 167 mls/hr IVPB Q12H [facility]; Protocol Last Admin: 10/07/18 06:14 Dose: 167 mls/hr Magnesium Oxide (Mag-Ox) 400 mg PO DAILY [facility] Last Admin: 10/07/18 10:02 Dose: 400 mg Metoprolol Tartrate (Lopressor) 12.5 mg PO DAILY [facility] Last Admin: 10/07/18 10:03 Dose: 12.5 mg Non-Formulary Medication (Celecoxib [Celebrex]) 200 mg PO DAILY [facility] Last Admin: 10/07/18 10:04 Dose: Not Given Non-Formulary Medication (Dutasteride [Avodart]) 0.5 mg PO DAILY [facility] Last Admin: 10/07/18 10:04 Dose: Not Given Non-Formulary Medication (Multivitamin/Iron/Folic Acid [Centrum Adults Tablet]) 1 tab PO DAILY [facility] Last Admin: 10/07/18 10:04 Dose: Not Given Nystatin (Nystatin Oral Susp) 5 ml PO QID [facility] Last Admin: 10/07/18 14:42 Dose: 5 ml Pantoprazole Sodium (Protonix Inj) 40 mg IVP DAILY [facility] Last Admin: 10/07/18 10:03 Dose: 40 mg Tamsulosin HCl (Flomax) 0.4 mg PO 1830 [facility] Last Admin: 10/06/18 17:50 Dose: 0.4 mg Vitamin E (Vitamin E 400 Units Cap) 400 intlu PO DAILY [facility] Last Admin: 10/07/18 10:02 Dose: 400 intlu - Labs Labs: 10/07/18 06:30 10/07/18 06:30 - Constitutional Appears: No Acute Distress, Confused - Head Exam Head Exam: ATRAUMATIC, NORMAL INSPECTION - Eye Exam Eye Exam: EOMI. absent: Scleral icterus - GI/Abdominal Exam GI & Abdominal Exam: Soft, Normal Bowel Sounds. absent: Bruit, Distended, Firm, Guarding, Rigid, Tenderness, Mass, Organomegaly, Pulsatile Mass Assessment and Plan - Assessment and Plan (Free Text) Assessment: 72 year old male with PMH of CAD s/p PCI, CABG, CVA, COPD, Diabetes, and BPH presenting with altered mental status, fever, and vomiting. Active treatment of altered mental status with improving mentation with workup in progress to rule out a viral syndrome or stroke. GI consulted for note of esophagitis on CT chest. notes patient underwent an EGD "many years ago" endorsed to be normal. -Eosinophilic esophagitis less likely given advanced age, no reported symptom manifestations; Diffuse thickening atypical for a underlying neoplasm or Andrade's esophagus -No history of radiation exposure or cirrhosis w/ varices -Perhaps related to ulcer from poorly chewed food due to poor dentition Plan: -Plan for esophagram and EGD once medically optimized/more lucid and off droplet precautions for further evaluation -Dyspepsia -> PPI -Puree/Dysphagia diet -Encephalopathy w/u per primary team; cultures negative to date -MRI Brain pending -Neurology and ID managing- follow up recommendations Pt seen and examined with Dr. Byrne; see attestation for further recs/changes. Wale Ritchie, PGY-4 <Deepak Byrne V - Last Filed: 10/07/18 16:53> Objective - Vital Signs/Intake and Output Vital Signs (last 24 hours): Temp Pulse Resp BP Pulse Ox 99.2 F 87 20 167/88 H 95 10/07/18 12:00 10/07/18 14:00 10/07/18 12:00 10/07/18 12:00 10/07/18 00:01 Intake and Output: 10/07/18 10/07/18 06:59 18:59 Intake Total 780 Balance 780 - Medications Medications: Current Medications Acetaminophen (Tylenol 650 Mg Supp) 650 mg RC Q4H PRN PRN Reason: Fever >100.4 F Last Admin: 10/04/18 06:03 Dose: 650 mg Acetaminophen (Tylenol 325mg Tab) 650 mg PO Q4 PRN PRN Reason: Fever >100.4 F Acetaminophen (Tylenol 325mg Tab) 650 mg PO Q6H PRN PRN Reason: Pain, moderate (4-7) Last Admin: 10/04/18 15:05 Dose: 650 mg Aspirin (Ecotrin) 81 mg PO DAILY [facility] Last Admin: 10/07/18 10:02 Dose: 81 mg Atorvastatin Calcium (Lipitor) 20 mg PO DAILY [facility] Last Admin: 10/07/18 10:02 Dose: 20 mg Clopidogrel Bisulfate (Plavix) 75 mg PO DAILY [facility] Last Admin: 10/07/18 10:02 Dose: 75 mg Escitalopram Oxalate (Lexapro) 10 mg PO DAILY [facility] Last Admin: 10/07/18 10:02 Dose: 10 mg Cefepime HCl (Maxipime 2gm) 2 gm in 100 mls @ 100 mls/hr IVPB Q12 [facility]; Protocol Stop: 10/09/18 06:46 Last Admin: 10/07/18 10:03 Dose: 100 mls/hr Vancomycin HCl (Vancomycin 1gm) 1 gm in 250 mls @ 167 mls/hr IVPB Q12H [facility]; Protocol Last Admin: 10/07/18 06:14 Dose: 167 mls/hr Magnesium Oxide (Mag-Ox) 400 mg PO DAILY [facility] Last Admin: 10/07/18 10:02 Dose: 400 mg Metoprolol Tartrate (Lopressor) 12.5 mg PO DAILY [facility] Last Admin: 10/07/18 10:03 Dose: 12.5 mg Non-Formulary Medication (Celecoxib [Celebrex]) 200 mg PO DAILY [facility] Last Admin: 10/07/18 10:04 Dose: Not Given Non-Formulary Medication (Dutasteride [Avodart]) 0.5 mg PO DAILY [facility] Last Admin: 10/07/18 10:04 Dose: Not Given Non-Formulary Medication (Multivitamin/Iron/Folic Acid [Centrum Adults Tablet]) 1 tab PO DAILY [facility] Last Admin: 10/07/18 10:04 Dose: Not Given Nystatin (Nystatin Oral Susp) 5 ml PO QID [facility] Last Admin: 10/07/18 14:42 Dose: 5 ml Pantoprazole Sodium (Protonix Inj) 40 mg IVP DAILY [facility] Last Admin: 10/07/18 10:03 Dose: 40 mg Tamsulosin HCl (Flomax) 0.4 mg PO 1830 [facility] Last Admin: 10/06/18 17:50 Dose: 0.4 mg Vitamin E (Vitamin E 400 Units Cap) 400 intlu PO DAILY [facility] Last Admin: 10/07/18 10:02 Dose: 400 intlu - Labs Labs: 10/07/18 06:30 10/07/18 06:30 Attending/Attestation - Attestation I have personally seen and examined this patient.: Yes I have fully participated in the care of the patient.: Yes I have reviewed all pertinent clinical information, including history, physical exam and plan: Yes Notes (Text): This is an addendum to GI progress report dictated by the GI Fellow. The patient was seen and examined earlier. Medical records, lab studies, imagings were reviewed. Last 24 hours events reviewed. Agreed with the above treatment plan as outlined in GI Fellow 's notes with the addition of the following Patient is still in isolation. Discussed with patient's family. Continue PPI. Diet has been changed, patient has poor dentition. Would benefit from EGD, once patient is optimized, to further evaluate esophageal thickening and odynophagia. Would consider esophagram as an initial evaluation. 10/07/18 16:49
--- NOTE | 2018-10-07 17:42 | MRI ---
Date of service: 10/07/2018 PROCEDURE: MRI BRAIN WITH AND WITHOUT CONTRAST HISTORY: r/o CVA COMPARISON: Comparison made with CT scan brain 10/03/2018. TECHNIQUE: Multiplanar, multisequence MR images of the brain were obtained with and without intravenous contrast enhancement. Note that the study is limited by significant motion artifact. FINDINGS: HEMORRHAGE: No gross acute parenchymal, subarachnoid or extra-axial hemorrhage. No evidence of large hemosiderin deposits seen on gradient echo weighted sequence. DWI: No evidence of an acute or early subacute infarction. BRAIN PARENCHYMA: Mild chronic periventricular white matter ischemic changes with chronic appearing lacunar lacunar type infarcts right basal ganglia... Additionally, there are small infarct changes seen in the brainstem as well as left cerebellum Mild moderate generalized volume loss. Prominent cisterna magna. ENHANCEMENT: No abnormal parenchymal nor extra-axial enhancement. No evidence of abnormal meningeal enhancement VENTRICLES: No obstructive hydrocephalus. CRANIUM: Unremarkable. ORBITS: Grossly unremarkable. PARANASAL SINUSES/MASTOIDS: Mild mucosal thickening right maxillary antrum with minor mucosal thickening left maxillary antrum. VASCULAR SYSTEM: Visualized major vascular flow voids at skull base patent.. OTHER FINDINGS: None . IMPRESSION: Very limited study due to motion artifact. No acute intracranial hemorrhage or infarct. Mild chronic white matter ischemic changes with chronic infarcts in the right basal ganglia and brainstem. No evidence abnormal enhancement. Mild generalized volume loss.
--- NOTE | 2018-10-07 22:56 | PN ---
DATE: 10/06/2018 The patient was seen this Tuesday morning. He was going down for an MRI. He is much more awake and clear than in the past. There were questions with restlessness and agitation. He will be sedated, and hopefully, we will get the MRI of the head, and I will follow with Infectious Disease and Neurology. In the meantime, the patient continues on antibiotics and stroke regimen. Josué Wagner MD
--- NOTE | 2018-10-08 01:04 | PN ---
DATE: 10/07/2018 SUBJECTIVE: The patient was seen this Tuesday morning in room 263, bed 1. He is resting comfortably in bed, having just been washed. He is much more awake, alert, certainly clear enough to understand me and engage in conversation but still confused. His expressive aphagia has improved significantly, droplet with isolation precautions continue to be in place. He is scheduled for an MRI later today. I will modify the sedation regimen, so that we could proceed with MRI. I reviewed his MRI from near 4 months ago, which was essentially unremarkable. What striking about this is the presentation that he had on prior admissions for what appeared to be a very similar presentation of CVA, TIA versus infectious etiology. He has altered mental status. Later this afternoon, I spoke with the patient's , reviewed our findings, and neurologic and Infectious Disease opinions, and how we are awaiting MRI. Josué Wagner MD MTDD
[2018-10-08] MEDS: Vancomycin 1gm in NS 250ml 1 GM/250 ML BAG IVPB SCH (06:23)
[2018-10-08] MEDS ORDERED: Barium Sulfate Susp 2.1% w/v, 2.0% w/w 450 mL Bottle PO ONE (09:54)
[2018-10-08] MEDS: Nystatin 100,000 Units/ml Oral Susp 5 ml UD PO SCH ×4 (10:03→21:43)
[2018-10-08] MEDS: Non Formulary Medication (Celecoxib [Celebrex] 200 MG) PO SCH (10:04)
[2018-10-08] MEDS: Magnesium Oxide 400 mg Tab UD PO SCH (10:04)
[2018-10-08] MEDS: FOLIC ACID PO SCH (10:05)
[2018-10-08] MEDS: MULTIVITAMIN PO SCH (10:05)
[2018-10-08] MEDS: IRON PO SCH (10:05)
--- NOTE | 2018-10-08 11:50 | CP.PCM.PN ---
<ChauRiamirta - Last Filed: 10/08/18 11:45> Subjective - Date & Time of Evaluation Date of Evaluation: 10/08/18 Time of Evaluation: 09:00 - Subjective Subjective: PGY-4 GI Fellow Prog Note Pt lying in bed when seen this AM; sitter at bedside. Pt states that he has some reflux symptoms. Upon orientation questions, he states the date is December 1990 and he cannot state his location. Nursing also reports ongoing hallucinations. Unable to obtain ROS due to clinical condition Objective - Vital Signs/Intake and Output Vital Signs (last 24 hours): Temp Pulse Resp BP Pulse Ox 97.6 F 68 20 135/74 99 10/08/18 06:00 10/08/18 10:03 10/08/18 06:00 10/08/18 10:03 10/08/18 06:00 Intake and Output: 10/08/18 10/08/18 06:59 18:59 Intake Total 360 Balance 360 - Medications Medications: Current Medications Acetaminophen (Tylenol 650 Mg Supp) 650 mg RC Q4H PRN PRN Reason: Fever >100.4 F Last Admin: 10/04/18 06:03 Dose: 650 mg Acetaminophen (Tylenol 325mg Tab) 650 mg PO Q4 PRN PRN Reason: Fever >100.4 F Acetaminophen (Tylenol 325mg Tab) 650 mg PO Q6H PRN PRN Reason: Pain, moderate (4-7) Last Admin: 10/04/18 15:05 Dose: 650 mg Aspirin (Ecotrin) 81 mg PO DAILY [facility] Last Admin: 10/08/18 10:04 Dose: 81 mg Atorvastatin Calcium (Lipitor) 20 mg PO DAILY [facility] Last Admin: 10/08/18 10:03 Dose: 20 mg Clopidogrel Bisulfate (Plavix) 75 mg PO DAILY [facility] Last Admin: 10/08/18 10:03 Dose: 75 mg Escitalopram Oxalate (Lexapro) 10 mg PO DAILY [facility] Last Admin: 10/08/18 10:03 Dose: 10 mg Magnesium Oxide (Mag-Ox) 400 mg PO DAILY [facility] Last Admin: 10/08/18 10:04 Dose: 400 mg Metoprolol Tartrate (Lopressor) 12.5 mg PO DAILY [facility] Last Admin: 10/08/18 10:03 Dose: 12.5 mg Non-Formulary Medication (Celecoxib [Celebrex]) 200 mg PO DAILY [facility] Last Admin: 10/08/18 10:04 Dose: Not Given Non-Formulary Medication (Dutasteride [Avodart]) 0.5 mg PO DAILY [facility] Last Admin: 10/08/18 10:05 Dose: Not Given Non-Formulary Medication (Multivitamin/Iron/Folic Acid [Centrum Adults Tablet]) 1 tab PO DAILY [facility] Last Admin: 10/08/18 10:05 Dose: 1 tab Nystatin (Nystatin Oral Susp) 5 ml PO QID [facility] Last Admin: 10/08/18 10:03 Dose: 5 ml Pantoprazole Sodium (Protonix Inj) 40 mg IVP DAILY [facility] Last Admin: 10/08/18 10:03 Dose: 40 mg Tamsulosin HCl (Flomax) 0.4 mg PO 1830 [facility] Last Admin: 10/07/18 17:44 Dose: 0.4 mg Vitamin E (Vitamin E 400 Units Cap) 400 intlu PO DAILY [facility] Last Admin: 10/08/18 10:03 Dose: 400 intlu - Labs Labs: 10/07/18 06:30 10/07/18 06:30 - Constitutional Appears: No Acute Distress, Confused - Head Exam Head Exam: ATRAUMATIC, NORMAL INSPECTION - Eye Exam Eye Exam: EOMI. absent: Scleral icterus - ENT Exam ENT Exam: Mucous Membranes Moist. absent: Mucous Membranes Dry - GI/Abdominal Exam GI & Abdominal Exam: Soft, Normal Bowel Sounds. absent: Bruit, Distended, Firm, Guarding, Rigid, Tenderness, Mass, Organomegaly, Pulsatile Mass, Rebound - Neurological Exam Neurological Exam: Alert, Altered (Ox1), Awake Assessment and Plan - Assessment and Plan (Free Text) Assessment: 72 year old male with PMH of CAD s/p PCI, CABG, CVA, COPD, Diabetes, and BPH presenting with altered mental status, fever, and vomiting. Active treatment of altered mental status with improving mentation with workup in progress to rule out a viral syndrome or stroke. GI consulted for note of esophagitis on CT chest. notes patient underwent an EGD "many years ago" endorsed to be normal. -Eosinophilic esophagitis less likely given advanced age, no reported symptom manifestations; Diffuse thickening atypical for a underlying neoplasm or Andrade's esophagus -No history of radiation exposure or cirrhosis w/ varices -Perhaps related to ulcer from poorly chewed food due to poor dentition Plan: -Plan for Esophagram and later EGD once medically optimized/more lucid and off droplet precautions for further evaluation -Dyspepsia -> PPI -Puree/Dysphagia diet -Encephalopathy w/u per primary team; cultures negative to date -MRI Brain w/o clear explanation -Neurology and ID managing- follow up recommendations Pt discussed with Dr. Byrne; see attestation for further recs/changes. Wale Ritchie, PGY-4 <Deepak Byrne V - Last Filed: 10/08/18 14:50> Objective - Vital Signs/Intake and Output Vital Signs (last 24 hours): Temp Pulse Resp BP Pulse Ox 97.7 F 74 19 124/60 99 10/08/18 12:00 10/08/18 12:00 10/08/18 12:00 10/08/18 12:00 10/08/18 06:00 Intake and Output: 10/08/18 10/08/18 06:59 18:59 Intake Total 360 Balance 360 - Medications Medications: Current Medications Acetaminophen (Tylenol 650 Mg Supp) 650 mg RC Q4H PRN PRN Reason: Fever >100.4 F Last Admin: 10/04/18 06:03 Dose: 650 mg Acetaminophen (Tylenol 325mg Tab) 650 mg PO Q4 PRN PRN Reason: Fever >100.4 F Acetaminophen (Tylenol 325mg Tab) 650 mg PO Q6H PRN PRN Reason: Pain, moderate (4-7) Last Admin: 10/04/18 15:05 Dose: 650 mg Aspirin (Ecotrin) 81 mg PO DAILY [facility] Last Admin: 10/08/18 10:04 Dose: 81 mg Atorvastatin Calcium (Lipitor) 20 mg PO DAILY [facility] Last Admin: 10/08/18 10:03 Dose: 20 mg Clopidogrel Bisulfate (Plavix) 75 mg PO DAILY [facility] Last Admin: 10/08/18 10:03 Dose: 75 mg Escitalopram Oxalate (Lexapro) 10 mg PO DAILY [facility] Last Admin: 10/08/18 10:03 Dose: 10 mg Magnesium Oxide (Mag-Ox) 400 mg PO DAILY [facility] Last Admin: 10/08/18 10:04 Dose: 400 mg Metoprolol Tartrate (Lopressor) 12.5 mg PO DAILY [facility] Last Admin: 10/08/18 10:03 Dose: 12.5 mg Non-Formulary Medication (Celecoxib [Celebrex]) 200 mg PO DAILY [facility] Last Admin: 10/08/18 10:04 Dose: Not Given Non-Formulary Medication (Dutasteride [Avodart]) 0.5 mg PO DAILY [facility] Last Admin: 10/08/18 10:05 Dose: Not Given Non-Formulary Medication (Multivitamin/Iron/Folic Acid [Centrum Adults Tablet]) 1 tab PO DAILY [facility] Last Admin: 10/08/18 10:05 Dose: 1 tab Nystatin (Nystatin Oral Susp) 5 ml PO QID [facility] Last Admin: 10/08/18 13:35 Dose: Not Given Pantoprazole Sodium (Protonix Inj) 40 mg IVP DAILY [facility] Last Admin: 10/08/18 10:03 Dose: 40 mg Tamsulosin HCl (Flomax) 0.4 mg PO 1830 [facility] Last Admin: 10/07/18 17:44 Dose: 0.4 mg Vitamin E (Vitamin E 400 Units Cap) 400 intlu PO DAILY [facility] Last Admin: 10/08/18 10:03 Dose: 400 intlu - Labs Labs: 10/07/18 06:30 10/07/18 06:30 Attending/Attestation - Attestation I have personally seen and examined this patient.: Yes I have fully participated in the care of the patient.: Yes I have reviewed all pertinent clinical information, including history, physical exam and plan: Yes Notes (Text): This is an addendum to GI followup report dictated by the GI Fellow. The patient was seen and evaluated earlier. Medical records, lab studies, imagings were reviewed. Last 24 hours events reviewed. Agreed with the above treatment p ju as outlined in GI Fellow's notes with the addition of the following Consider esophagram when patient's more alert. Continue PPI. Dysphagia diet with assistance. EGD when optimized. Discussed with the family yesterday. 10/08/18 14:49
--- NOTE | 2018-10-08 16:16 | CT ---
Date of service: 10/08/2018 PROCEDURE: CT Abdomen and Pelvis. HISTORY: temp 102,, SIRS COMPARISON: Correlation made with CT scan of the chest 10/05/2018 which imaged both lung bases as well as prior CT scan abdomen pelvis 04/24/2018. TECHNIQUE: Contiguous axial images of the abdomen and pelvis. Oral contrast was administered. No IV contrast given. Coronal and Sagittal reformats generated. Radiation dose: Total exam DLP = 1083.03 mGy-cm. This CT exam was performed using one or more of the following dose reduction techniques: Automated exposure control, adjustment of the mA and/or kV according to patient size, and/or use of iterative reconstruction technique. FINDINGS: LOWER THORAX: Heart appears mildly enlarged. No significant pericardial effusion. There is a small right-sided effusion and trace left effusion. Suspect a very minimal right basilar atelectasis as well. Small hiatal hernia with oral contrast material in the distal esophagus likely due to reflux of. There is wall thickening of the distal esophagus as well; rule out esophagitis.. LIVER: Liver exhibits normal size measuring just over 15 cm in CC dimension. No obvious hepatic mass collection or calcification. GALLBLADDER AND BILE DUCTS: Gallbladder physiologically distended. No evidence of intraluminal gallbladder calculi. PANCREAS: Pancreas atrophic and fatty replaced. No evidence of pancreatic masses collections or calcifications. SPLEEN: Unremarkable. No splenomegaly. ADRENALS: No adrenal lesions. KIDNEYS AND URETERS: Kidneys demonstrate relatively symmetric size. No evidence of nephrolithiasis or hydronephrosis. Mild nonspecific infiltration changes seen in the perinephric fat bilaterally BLADDER: Urinary bladder incompletely distended which may in part account for slight thick-walled appearance.. Muscular hypertrophy presumably contributes. Correlation with urinalysis recommended to exclude the possibility of a cystitis. REPRODUCTIVE: Prostate gland unremarkable. APPENDIX: Appendix is not seen with certainty on this study however no obvious inflammatory changes right lower quadrant of the abdomen.. BOWEL: Evaluation of the bowel slightly limited due to incomplete opacification. The stomach is partially distended with oral contrast material and some layering food debris as well as moderate amount of air. Wall thickening of the distal pylorus and proximal duodenum noted which may in part be due to peristalsis however the possibility of gastritis/duodenitis or peptic ulcer disease not excluded. Note also made of what appears to represent some intraluminal air in the distal to extend to the thin endoluminal surface; the collection of air in this area appears slightly larger than the prior exam and the possibility of a diverticulum at this location cannot be excluded.. Clinical correlation recommended. Follow-up endoscopy could be performed if indicated. Visualized loops of small bowel exhibit normal contour and caliber. No evidence of acute mechanical small bowel obstruction with oral contrast material seen within the cecum. Redemonstrated colonic diverticula, the bulk of which arise from the sigmoid/distal descending colon junction. Some mild wall thickening of the distal descending/proximal sigmoid colon noted with some vague infiltration changes of the adjacent mesentery. Findings could represent a mild acute diverticulitis. Clinical correlation recommended. PERITONEUM: As above. No evidence of free or loculated intraperitoneal fluid. LYMPH NODES: Few small nonspecific retroperitoneal lymph nodes are present. VASCULATURE: Unremarkable. No aortic aneurysm. . Mild aortic atherosclerotic calcification or mural plaque present. BONES: Mild multilevel degenerative spondylosis of the lower thoracic and lumbar spine. OTHER FINDINGS: None. IMPRESSION: Diverticulosis with mild wall thickening of the distal descending/proximal sigmoid colon noted with some vague infiltration changes of the adjacent mesentery. Findings could represent a mild acute diverticulitis. Clinical correlation recommended. Wall thickening of the distal pylorus and proximal duodenum noted which may in part be due to peristalsis however the possibility of gastritis/duodenitis or peptic ulcer disease not excluded. Note also made of what appears to represent some intraluminal air in the distal to extend to the thin endoluminal surface; the collection of air in this area appears slightly larger than the prior exam and the possibility of a diverticulum at this location cannot be excluded.. Clinical correlation recommended. Follow-up endoscopy could be performed if indicated. There is evidence of gastroesophageal reflux with slight wall thickening of the distal esophagus; rule out esophagitis. Small right-sided effusion and trace left effusion. See above discussion for additional details and findings.
--- NOTE | 2018-10-08 18:19 | PN ---
DATE: 10/08/2018 SUBJECTIVE: The patient is seen in bed, in no acute distress, was seen early this morning, awake and alert, doing well, and no more fevers. The patient has been afebrile now for several days. No chest pain, shortness of breath or cough. OBJECTIVE: VITAL SIGNS: The patient's temperature is 97, blood pressure is 120/60, respiratory rate of 18, and heart rate of 74. HEENT: Unremarkable. NECK: Supple. LUNGS: Have decreased breath sounds. HEART: Normal S1 and S2. ABDOMEN: Soft and nontender. LABORATORY DATA: Reveals a white count of 7.4, hemoglobin of 13, and platelets of 162. BUN of 21 and creatinine of 0.5. The patient had a procalcitonin which is negative and the urinalysis is noted and serology reveals influenza is negative. Microbiology reveals negative urine cultures, negative blood cultures and repeat blood cultures are negative. The patient had a MRI of the brain, which is negative and CAT scan of the head, which is negative. Chest x-ray which is negative and the patient has esophagitis on CAT scan of the chest. GI's note is reviewed and further workup of upper endoscopy is considered once the patient is optimized. ASSESSMENT AND PLAN: This is a 72-year-old male who was back to his baseline this morning when I saw the patient, Dr. Josué Wagner is present who states the patient is back to his baseline mental status. The patient does have a history of coronary artery disease and coronary bypass graft, cerebrovascular accident, chronic obstructive lung disease, and diabetes who was admitted with change in mental status and (SIRS) systemic inflammatory response syndrome who is with no evidence of pneumonia on the CAT scan of the chest and systemic inflammatory response syndrome and negative blood cultures, negative urine cultures and negative MRI of the head, etiology of fever not clear with a negative MRI with and without contrast, she will comfortable and discontinue the acyclovir. Negative blood cultures. We will discontinue the vancomycin and negative urine culture and negative CAT scan of the chest. We will discontinue all the antibiotics. We will follow the patient off of antibiotics. I have ordered a CAT scan of the abdomen and pelvis, the results are pending and the case discussed with Dr. Josué Wagner at length. We will follow with you. Awaiting for a CT of the abdomen and pelvis results. The patient is also being followed by GI for the esophageal thickening on CAT scan of the chest and we will make further recommendations. Osmany Botello MD
--- NOTE | 2018-10-08 23:16 | PN ---
DATE: 10/08/2018 SUBJECTIVE: The patient was seen this Tuesday morning in room 263, bed 1. He is more awake. Expressive aphasia has improved, but he certainly remains quite confused, unable to any intelligent conversation, repeat himself often and asking many unusual questions. PHYSICAL EXAMINATION: NEUROLOGIC: There is no apparent motor deficits. DIAGNOSTIC DATA: MRI was done yesterday revealing there is NO significant large acute stroke, only brainstem and central lacunes and small vessel disease. LABORATORY DATA: His white count has come down. His cultures are negative. ASSESSMENT AND PLAN: He remains afebrile after an initial presentation with significant fever. The case was discussed at great length with Infectious Disease sales operations consultant. It is our opinion that the patient's mental status must be related to his presenting febrile state probably due to viral infection with negative culture and Infectious Disease workup to this point. We will check a CT scan of the abdomen as we have already checked the chest and MRI of the brain. I will discuss the case tomorrow with Neurology sales operations consultant, Dr. Petersen to see if he is in agreement. Continue physical therapy. We will discontinue the droplet precautions and isolation at this point. Josué Wagner MD MTDD
[2018-10-09 09:57] LABS: BASO # 0.03 K/mm3 (0.0-2.0); BASO % 0.4 % (0.0-3.0); EOS # 0.3 (0.0-0.7); EOS % 4.1 % (1.5-5.0); GRAN # 5.4 (1.4-6.5); GRAN % 69.7 % (50.0-68.0); HEMOGLOBIN 14.7 g/dL (14.0-18.0); LYMPH # 1.1 (1.2-3.4); LYMPH % 14.2 % (22.0-35.0); MEAN CELL VOLUME 90.3 fl (80.0-105.0); MEAN CORPUSCULAR HEMOGLOBIN 30.9 pg (25.0-35.0); MEAN CORPUSCULAR HGB CONC 34.3 g/dl (31.0-37.0); MEAN PLATELET VOLUME 10.1 fl (7.0-11.0); MONO # 0.9 (0.1-0.6); MONO % 11.6 % (1.0-6.0); RBC 4.75 10^6/uL (3.5-6.1); RED CELL DISTRIBUTION WIDTH 12.8 % (11.5-14.5); WHITE BLOOD COUNT 7.8 10^3/uL (4.5-11.0)
[2018-10-09 10:07] LABS: ALB/GLOB RATIO 1.1 (1.1-1.8); ALBUMIN 3.6 g/dL (3.0-4.8); ALT/SGPT 34 U/L (7-56); AST/SGOT 22 U/L (17-59); BLOOD UREA NITROGEN 16 mg/dL (7-21); CALCIUM 8.8 mg/dL (8.4-10.5); GFR NON-AFRICAN AMERICAN > 60
--- NOTE | 2018-10-09 10:19 | CP.PCM.PN ---
<Juan Antonio Metcalf - Last Filed: 10/09/18 18:57> Subjective - Date & Time of Evaluation Date of Evaluation: 10/09/18 Time of Evaluation: 08:15 - Subjective Subjective: PGY6 GI Fellow Progress Note Patient seen and examined bedside this morning. One to one at bedside. The patient remains confused and altered with difficulty reorienting overnight. Patient comfortable and sleeping this AM. Denies any abdominal pain, dysphagia, nausea, vomiting and none noted by staff. 12 system ROS limited given clinical condition. Objective - Vital Signs/Intake and Output Vital Signs (last 24 hours): Temp Pulse Resp BP Pulse Ox 98.8 F 75 18 153/83 H 97 10/08/18 18:00 10/09/18 02:00 10/08/18 18:00 10/08/18 18:00 10/08/18 18:00 - Medications Medications: Current Medications Acetaminophen (Tylenol 650 Mg Supp) 650 mg RC Q4H PRN PRN Reason: Fever >100.4 F Last Admin: 10/04/18 06:03 Dose: 650 mg Acetaminophen (Tylenol 325mg Tab) 650 mg PO Q4 PRN PRN Reason: Fever >100.4 F Last Admin: 10/08/18 16:34 Dose: 650 mg Acetaminophen (Tylenol 325mg Tab) 650 mg PO Q6H PRN PRN Reason: Pain, moderate (4-7) Last Admin: 10/04/18 15:05 Dose: 650 mg Aspirin (Ecotrin) 81 mg PO DAILY [facility] Last Admin: 10/08/18 10:04 Dose: 81 mg Atorvastatin Calcium (Lipitor) 20 mg PO DAILY [facility] Last Admin: 10/08/18 10:03 Dose: 20 mg Clopidogrel Bisulfate (Plavix) 75 mg PO DAILY [facility] Last Admin: 10/08/18 10:03 Dose: 75 mg Escitalopram Oxalate (Lexapro) 10 mg PO DAILY [facility] Last Admin: 10/08/18 10:03 Dose: 10 mg Magnesium Oxide (Mag-Ox) 400 mg PO DAILY [facility] Last Admin: 10/08/18 10:04 Dose: 400 mg Metoprolol Tartrate (Lopressor) 12.5 mg PO DAILY [facility] Last Admin: 10/08/18 10:03 Dose: 12.5 mg Non-Formulary Medication (Celecoxib [Celebrex]) 200 mg PO DAILY [facility] Last Admin: 10/08/18 10:04 Dose: Not Given Non-Formulary Medication (Dutasteride [Avodart]) 0.5 mg PO DAILY [facility] Last Admin: 10/08/18 10:05 Dose: Not Given Non-Formulary Medication (Multivitamin/Iron/Folic Acid [Centrum Adults Tablet]) 1 tab PO DAILY [facility] Last Admin: 10/08/18 10:05 Dose: 1 tab Nystatin (Nystatin Oral Susp) 5 ml PO QID [facility] Last Admin: 10/08/18 21:43 Dose: 5 ml Pantoprazole Sodium (Protonix Inj) 40 mg IVP DAILY [facility] Last Admin: 10/08/18 10:03 Dose: 40 mg Tamsulosin HCl (Flomax) 0.4 mg PO 1830 [facility] Last Admin: 10/08/18 18:07 Dose: Not Given Vitamin E (Vitamin E 400 Units Cap) 400 intlu PO DAILY [facility] Last Admin: 10/08/18 10:03 Dose: 400 intlu - Labs Labs: 10/09/18 09:45 10/09/18 09:45 - Constitutional Appears: No Acute Distress, Confused - Eye Exam Eye Exam: EOMI, PERRL - ENT Exam ENT Exam: Mucous Membranes Moist - Respiratory Exam Respiratory Exam: Clear to Ausculation Bilateral. absent: Rales, Rhonchi, Wheezes - Cardiovascular Exam Cardiovascular Exam: RRR, +S1, +S2 - GI/Abdominal Exam GI & Abdominal Exam: Soft, Normal Bowel Sounds. absent: Distended, Firm, G uarding, Rigid, Tenderness, Organomegaly - Extremities Exam Extremities Exam: Normal Inspection. absent: Pedal Edema - Neurological Exam Neurological Exam: Altered, Awake - Psychiatric Exam Psychiatric exam: Normal Affect, Normal Mood - Skin Skin Exam: Dry, Warm Assessment and Plan - Assessment and Plan (Free Text) Assessment: Patient is a 72 year old male with PMHx significant for CAD s/p PCI and CABG, prior CVA, COPD, DM, BPH who presented with altered mentation, fever, nausea/vomiting. -Altered mental status - prior CVA with possible exacerbation or prior lesion -Abnormal imaging of the GI tract - distal esophagitis -Hiatal hernia Plan: -Consider further imaging with esophagram tomorrow -May benefit from EGD for further evaluation once medically optimized - thickening may be a result of noted hiatal hernia -Continue PPI therapy -Diet as tolerated with assistance -Neurology following <Truong Byrnekoko Mirella - Last Filed: 10/09/18 22:14> Objective - Vital Signs/Intake and Output Vital Signs (last 24 hours): Temp Pulse Resp BP Pulse Ox 97.9 F 79 18 121/62 97 10/09/18 17:49 10/09/18 18:00 10/09/18 17:49 10/09/18 17:49 10/08/18 18:00 - Medications Medications: Current Medications Acetaminophen (Tylenol 650 Mg Supp) 650 mg RC Q4H PRN PRN Reason: Fever >100.4 F Last Admin: 10/04/18 06:03 Dose: 650 mg Acetaminophen (Tylenol 325mg Tab) 650 mg PO Q4 PRN PRN Reason: Fever >100.4 F Last Admin: 10/08/18 16:34 Dose: 650 mg Acetaminophen (Tylenol 325mg Tab) 650 mg PO Q6H PRN PRN Reason: Pain, moderate (4-7) Last Admin: 10/09/18 16:01 Dose: 650 mg Aspirin (Ecotrin) 81 mg PO DAILY [facility] Last Admin: 10/09/18 10:53 Dose: 81 mg Atorvastatin Calcium (Lipitor) 20 mg PO DAILY [facility] Last Admin: 10/09/18 10:54 Dose: 20 mg Clopidogrel Bisulfate (Plavix) 75 mg PO DAILY [facility] Last Admin: 10/09/18 10:54 Dose: 75 mg Escitalopram Oxalate (Lexapro) 10 mg PO DAILY [facility] Last Admin: 10/09/18 10:53 Dose: 10 mg Magnesium Oxide (Mag-Ox) 400 mg PO DAILY [facility] Last Admin: 10/09/18 10:53 Dose: 400 mg Metoprolol Tartrate (Lopressor) 12.5 mg PO DAILY [facility] Last Admin: 10/09/18 10:54 Dose: 12.5 mg Non-Formulary Medication (Celecoxib [Celebrex]) 200 mg PO DAILY [facility] Last Admin: 10/09/18 10:52 Dose: Not Given Non-Formulary Medication (Dutasteride [Avodart]) 0.5 mg PO DAILY [facility] Last Admin: 10/09/18 10:52 Dose: Not Given Non-Formulary Medication (Multivitamin/Iron/Folic Acid [Centrum Adults Tablet]) 1 tab PO DAILY [facility] Last Admin: 10/09/18 10:53 Dose: Not Given Nystatin (Nystatin Oral Susp) 5 ml PO QID [facility] Last Admin: 10/09/18 22:03 Dose: 5 ml Pantoprazole Sodium (Protonix Inj) 40 mg IVP DAILY [facility] Last Admin: 10/09/18 10:53 Dose: 40 mg Tamsulosin HCl (Flomax) 0.4 mg PO 1830 [facility] Last Admin: 10/09/18 17:52 Dose: 0.4 mg Vitamin E (Vitamin E 400 Units Cap) 400 intlu PO DAILY [facility] Last Admin: 10/09/18 10:54 Dose: 400 intlu - Labs Labs: 10/09/18 09:45 10/09/18 09:45 Attending/Attestation - Attestation I have personally seen and examined this patient.: Yes I have fully participated in the care of the patient.: Yes I have reviewed all pertinent clinical information, including history, physical exam and plan: Yes Notes (Text): This is an addendum to GI progress report dictated by the GI Fellow. The patient was seen and examined earlier. Medical records, lab studies, imagings were reviewed. Last 24 hours events reviewed. Agreed with the above treatment plan as outlined in GI Fellow 's notes with the addition of the following Patient is tolerating diet Would request esophagram to further evaluate odynophagia and esophageal thickening noticed on CT Would consider EGD after optimization of his medical condition and after reviewing the above workup 10/09/18 22:10
[2018-10-09] MEDS: Non Formulary Medication (Celecoxib [Celebrex] 200 MG) PO SCH (10:52)
[2018-10-09] MEDS: Magnesium Oxide 400 mg Tab UD PO SCH (10:53)
[2018-10-09] MEDS: IRON PO SCH (10:53)
[2018-10-09] MEDS: FOLIC ACID PO SCH (10:53)
[2018-10-09] MEDS: Nystatin 100,000 Units/ml Oral Susp 5 ml UD PO SCH ×3 (10:53→22:03)
[2018-10-09] MEDS: MULTIVITAMIN PO SCH (10:53)
--- NOTE | 2018-10-09 12:32 | CP.PCM.PCO ---
Physician Communication Note - Physician Communication Note Physician Communication Note: patient on 1:1 Dr. Cummings consulted
--- NOTE | 2018-10-09 13:24 | PN ---
DATE: 10/09/2018 NEUROLOGY FOLLOWUP CHIEF COMPLAINT: Followup for altered mental status. SUBJECTIVE: The patient is seen and examined at bedside, more alert, following more simple commands, able to communicate. He does get delirium overnight. His MRI of the brain with and without contrast failed to show any abnormal intracranial enhancement and no acute intracranial abnormalities, some old chronic ischemic changes, mild bilateral lacunar infarcts. Otherwise, no acute abnormalities. CT of the abdomen was done which showed some underlying possible diverticulitis and esophagitis distally. GI is on board. PAST MEDICAL HISTORY: History of coronary artery disease, status post PCI with CABG, prior CVA, COPD, type 2 diabetes mellitus, BPH. REVIEW OF SYSTEMS: Fourteen-point review of systems is negative except as per HPI. ALLERGIES: NO KNOWN DRUG ALLERGIES. MEDICATIONS: Reviewed by nurse's reconciliation sheet. FAMILY HISTORY: Noncontributory. PHYSICAL EXAMINATION VITAL SIGNS: Temperature afebrile, pulse rate of 75, blood pressure /64, respiratory rate of 20. GENERAL: The patient is in bed, more alert, in no acute distress. HEENT: Atraumatic, normocephalic. PERRLA. Extraocular muscles intact. NECK: Supple. No JVD, no adenopathy noted. LUNGS: Clear to auscultation. No adventitious sounds. HEART: S1, S2. Normal rate and rhythm. No murmurs, rubs, or gallops. ABDOMEN: Soft, nontender, nondistended. Bowel sounds present. EXTREMITIES: No clubbing, no cyanosis. Peripheral pulses 2+ felt bilaterally. NEUROLOGIC: The patient is alert, oriented to person and place, not much to month or year. Recall after five minutes is 0/3. Poor attention span, slow thought process. Cranial nerves II-XII are intact. Speech is fluent without any errors. There is mild dysarthria. Motor exam: Moves all extremities equally. No pronator drift seen. Sensory exam: Withdraws proprioception and vibration are intact bilaterally. DTRs are 2+ throughout, 1 at both knees and ankles. Coordination: [id number] intact. No dysmetria noted. LABORATORY DATA: Sodium is 138, potassium of 4, chloride 102, carbon dioxide 29, BUN of 16, creatinine 0.5, random glucose of 172. Procalcitonin is less than 0.05. ASSESSMENT AND PLAN: This is a 72-year-old man with history of coronary artery disease, status post coronary artery bypass grafting, stents, hyperlipidemia, hypertension, type 2 diabetes mellitus, came in initially with multiple episodes of vomiting, disorientation, confusion, lethargy, and fever. So far his workup has been negative. In terms of CT chest as well as the MRI of the brain with and without contrast, failed to show any abnormal enhancement of the meninges and no evidence of meningitis in the MRI. He does have some distal esophagitis and possibly underlying diverticulitis on the CAT scan of the abdomen. Gastroenterology is on board. At this time, his whole altered mental status could be secondary to a viral prodrome he does have evidence of mild cognitive impairment. At this time, we will recommend to monitor his electrolytes and correct accordingly. B12 1000 mg daily as well as thiamine 100 mg by mouth daily for neuro-activation. Frequent orientation throughout the day, delirium precautions, and we will recommend some subacute rehabilitation. Gerald Petersen MD
--- NOTE | 2018-10-09 14:00 | CP.PCM.PN ---
<Kulwinder Braden - Last Filed: 10/09/18 13:56> Subjective - Date & Time of Evaluation Date of Evaluation: 10/09/18 Time of Evaluation: 09:25 - Subjective Subjective: ID Progress Note - Dr. Romano Patient was seen and examined at bedside. Pt is at baseline mentation and conversing appropriately. Pt has no acute complaints at this time and is tolerating diet and moving bowels and bladder regularly. He is on 1;1 on account of pulling his lines yesterday. Denied fever, chills, sob, chest pains, abdominal pains, nausea or vomiting. Objective - Vital Signs/Intake and Output Vital Signs (last 24 hours): Temp Pulse Resp BP Pulse Ox 97.8 F 74 18 119/68 97 10/09/18 12:00 10/09/18 12:00 10/09/18 12:00 10/09/18 12:00 10/08/18 18:00 - Medications Medications: Current Medications Acetaminophen (Tylenol 650 Mg Supp) 650 mg RC Q4H PRN PRN Reason: Fever >100.4 F Last Admin: 10/04/18 06:03 Dose: 650 mg Acetaminophen (Tylenol 325mg Tab) 650 mg PO Q4 PRN PRN Reason: Fever >100.4 F Last Admin: 10/08/18 16:34 Dose: 650 mg Acetaminophen (Tylenol 325mg Tab) 650 mg PO Q6H PRN PRN Reason: Pain, moderate (4-7) Last Admin: 10/04/18 15:05 Dose: 650 mg Aspirin (Ecotrin) 81 mg PO DAILY [facility] Last Admin: 10/09/18 10:53 Dose: 81 mg Atorvastatin Calcium (Lipitor) 20 mg PO DAILY [facility] Last Admin: 10/09/18 10:54 Dose: 20 mg Clopidogrel Bisulfate (Plavix) 75 mg PO DAILY [facility] Last Admin: 10/09/18 10:54 Dose: 75 mg Escitalopram Oxalate (Lexapro) 10 mg PO DAILY [facility] Last Admin: 10/09/18 10:53 Dose: 10 mg Magnesium Oxide (Mag-Ox) 400 mg PO DAILY [facility] Last Admin: 10/09/18 10:53 Dose: 400 mg Metoprolol Tartrate (Lopressor) 12.5 mg PO DAILY [facility] Last Admin: 10/09/18 10:54 Dose: 12.5 mg Non-Formulary Medication (Celecoxib [Celebrex]) 200 mg PO DAILY [facility] Last Admin: 10/09/18 10:52 Dose: Not Given Non-Formulary Medication (Dutasteride [Avodart]) 0.5 mg PO DAILY [facility] Last Admin: 10/09/18 10:52 Dose: Not Given Non-Formulary Medication (Multivitamin/Iron/Folic Acid [Centrum Adults Tablet]) 1 tab PO DAILY [facility] Last Admin: 10/09/18 10:53 Dose: Not Given Nystatin (Nystatin Oral Susp) 5 ml PO QID [facility] Last Admin: 10/09/18 10:53 Dose: 5 ml Pantoprazole Sodium (Protonix Inj) 40 mg IVP DAILY [facility] Last Admin: 10/09/18 10:53 Dose: 40 mg Tamsulosin HCl (Flomax) 0.4 mg PO 1830 [facility] Last Admin: 10/08/18 18:07 Dose: Not Given Vitamin E (Vitamin E 400 Units Cap) 400 intlu PO DAILY [facility] Last Admin: 10/09/18 10:54 Dose: 400 intlu - Labs Labs: 10/09/18 09:45 10/09/18 09:45 - Constitutional Appears: No Acute Distress - Head Exam Head Exam: ATRAUMATIC, NORMAL INSPECTION, NORMOCEPHALIC - Eye Exam Eye Exam: EOMI, Normal appearance, PERRL - ENT Exam ENT Exam: Mucous Membranes Moist, Normal Exam - Neck Exam Neck Exam: Full ROM, Normal Inspection. absent: Lymphadenopathy - Respiratory Exam Respiratory Exam: Clear to Ausculation Bilateral, NORMAL BREATHING PATTERN - GI/Abdominal Exam GI & Abdominal Exam: Soft, Normal Bowel Sounds. absent: Tenderness - Extremities Exam Extremities Exam: Full ROM, Normal Capillary Refill, Normal Inspection. absent: Joint Swelling, Pedal Edema - Back Exam Back Exam: NORMAL INSPECTION - Neurological Exam Neurological Exam: Alert, Awake, CN II-XII Intact, Normal Gait, Oriented x3 - Psychiatric Exam Psychiatric exam: Normal Affect, Normal Mood - Skin Skin Exam: Dry, Intact, Normal Color, Warm Assessment and Plan - Assessment and Plan (Free Text) Assessment: 72yo male with history of CAD s/p stent, CABG, TIA, CVA x3, DM presents with altered mental status in the setting of nausea/vomiting/fevers concerning for infectious etiology. ID consulted for evaluation 1. Altered mental status, improving 2. SIRS, R/O sepsis with encephalopathy, R/O acute viral syndrome. 3. Fever of unknown origin 4. CAD 5. hx of CVA x3 6. DM - MRI negative, pancx negative no leukocytosis, pct negative, DC abx at this t daren, likely 2/2 viral syndrome -SIRS, R/O sepsis with encephalopathy, R/O acute viral syndrome. Follow up blood, urine cx. CXR is clear. -Rapid flu negative - CT revealed esophagitis, EGD esophogram discussed as per GI -Neurology consultation noted, Dr. Corado recs pending after MRI -CXR revealed no active disease -UA negative Patient seen and case discussed/reviewed with attending, Dr. Romano <Antione Romano - Last Filed: 10/09/18 22:11> Objective - Vital Signs/Intake and Output Vital Signs (last 24 hours): Temp Pulse Resp BP Pulse Ox 97.9 F 79 18 121/62 97 10/09/18 17:49 10/09/18 18:00 10/09/18 17:49 10/09/18 17:49 10/08/18 18:00 - Medications Medications: Current Medications Acetaminophen (Tylenol 650 Mg Supp) 650 mg RC Q4H PRN PRN Reason: Fever >100.4 F Last Admin: 10/04/18 06:03 Dose: 650 mg Acetaminophen (Tylenol 325mg Tab) 650 mg PO Q4 PRN PRN Reason: Fever >100.4 F Last Admin: 10/08/18 16:34 Dose: 650 mg Acetaminophen (Tylenol 325mg Tab) 650 mg PO Q6H PRN PRN Reason: Pain, moderate (4-7) Last Admin: 10/09/18 16:01 Dose: 650 mg Aspirin (Ecotrin) 81 mg PO DAILY [facility] Last Admin: 10/09/18 10:53 Dose: 81 mg Atorvastatin Calcium (Lipitor) 20 mg PO DAILY [facility] Last Admin: 10/09/18 10:54 Dose: 20 mg Clopidogrel Bisulfate (Plavix) 75 mg PO DAILY [facility] Last Admin: 10/09/18 10:54 Dose: 75 mg Escitalopram Oxalate (Lexapro) 10 mg PO DAILY [facility] Last Admin: 10/09/18 10:53 Dose: 10 mg Magnesium Oxide (Mag-Ox) 400 mg PO DAILY [facility] Last Admin: 10/09/18 10:53 Dose: 400 mg Metoprolol Tartrate (Lopressor) 12.5 mg PO DAILY [facility] Last Admin: 10/09/18 10:54 Dose: 12.5 mg Non-Formulary Medication (Celecoxib [Celebrex]) 200 mg PO DAILY [facility] Last Admin: 10/09/18 10:52 Dose: Not Given Non-Formulary Medication (Dutasteride [Avodart]) 0.5 mg PO DAILY [facility] Last Admin: 10/09/18 10:52 Dose: Not Given Non-Formulary Medication (Multivitamin/Iron/Folic Acid [Centrum Adults Tablet]) 1 tab PO DAILY [facility] Last Admin: 10/09/18 10:53 Dose: Not Given Nystatin (Nystatin Oral Susp) 5 ml PO QID [facility] Last Admin: 10/09/18 22:03 Dose: 5 ml Pantoprazole Sodium (Protonix Inj) 40 mg IVP DAILY [facility] Last Admin: 10/09/18 10:53 Dose: 40 mg Tamsulosin HCl (Flomax) 0.4 mg PO 1830 [facility] Last Admin: 10/09/18 17:52 Dose: 0.4 mg Vitamin E (Vitamin E 400 Units Cap) 400 intlu PO DAILY [facility] Last Admin: 10/09/18 10:54 Dose: 400 intlu - Labs Labs: 10/09/18 09:45 10/09/18 09:45 Assessment and Plan - Assessment and Plan (Free Text) Assessment: Infectious diseases Attending Physician Attestation Patient seen and examined, discussed with medical manager. I have reviewed the patient's history of present illness, past medical, social, personal and family histories, pertinent physical exam findings, course so far in this hospital admission, pertinent laboratory and imaging results. I agree with the above findings, assessment and plan. In addition, will continue to monitor clinically off antibiotics - no evidence of bacterial infection.
[2018-10-10] MEDS: Non Formulary Medication (Celecoxib [Celebrex] 200 MG) PO SCH (09:44)
[2018-10-10] MEDS: IRON PO SCH (09:45)
[2018-10-10] MEDS: FOLIC ACID PO SCH (09:45)
[2018-10-10] MEDS: MULTIVITAMIN PO SCH (09:45)
[2018-10-10] MEDS: Magnesium Oxide 400 mg Tab UD PO SCH (09:51)
[2018-10-10] MEDS: Nystatin 100,000 Units/ml Oral Susp 5 ml UD PO SCH ×2 (09:51→21:54)
[2018-10-10] MEDS ORDERED: Barium Sulfate for Susp 96% w/w 176g Bottle PR ONE ×2 (10:19→10:53)
--- NOTE | 2018-10-10 11:44 | CP.PCM.PN ---
<Juan Antonio Metcalf - Last Filed: 10/10/18 11:39> Subjective - Date & Time of Evaluation Date of Evaluation: 10/10/18 Time of Evaluation: 08:15 - Subjective Subjective: PGY6 GI Fellow Progress Note Patient seen and examined bedside this morning. Patient has no complaints at present. More lucid than previously but has periods of confusion. No events overnight. 12 system ROS performed and negative except where stated Objective - Vital Signs/Intake and Output Vital Signs (last 24 hours): Temp Pulse Resp BP Pulse Ox 98.1 F 95 H 20 136/80 98 10/10/18 06:00 10/10/18 09:52 10/10/18 06:00 10/10/18 06:00 10/10/18 06:00 Intake and Output: 10/10/18 10/10/18 06:59 18:59 Intake Total 120 Output Total 350 Balance -230 - Medications Medications: Current Medications Acetaminophen (Tylenol 650 Mg Supp) 650 mg RC Q4H PRN PRN Reason: Fever >100.4 F Last Admin: 10/04/18 06:03 Dose: 650 mg Acetaminophen (Tylenol 325mg Tab) 650 mg PO Q4 PRN PRN Reason: Fever >100.4 F Last Admin: 10/08/18 16:34 Dose: 650 mg Acetaminophen (Tylenol 325mg Tab) 650 mg PO Q6H PRN PRN Reason: Pain, moderate (4-7) Last Admin: 10/09/18 16:01 Dose: 650 mg Aspirin (Ecotrin) 81 mg PO DAILY [facility] Last Admin: 10/10/18 09:51 Dose: 81 mg Atorvastatin Calcium (Lipitor) 20 mg PO DAILY [facility] Last Admin: 10/10/18 09:51 Dose: 20 mg Clopidogrel Bisulfate (Plavix) 75 mg PO DAILY [facility] Last Admin: 10/10/18 09:51 Dose: 75 mg Escitalopram Oxalate (Lexapro) 10 mg PO DAILY [facility] Last Admin: 10/10/18 09:51 Dose: 10 mg Magnesium Oxide (Mag-Ox) 400 mg PO DAILY [facility] Last Admin: 10/10/18 09:51 Dose: 400 mg Metoprolol Tartrate (Lopressor) 12.5 mg PO DAILY [facility] Last Admin: 10/10/18 09:52 Dose: 12.5 mg Non-Formulary Medication (Celecoxib [Celebrex]) 200 mg PO DAILY [facility] Last Admin: 10/10/18 09:44 Dose: Not Given Non-Formulary Medication (Dutasteride [Avodart]) 0.5 mg PO DAILY [facility] Last Admin: 10/10/18 09:44 Dose: Not Given Non-Formulary Medication (Multivitamin/Iron/Folic Acid [Centrum Adults Tablet]) 1 tab PO DAILY [facility] Last Admin: 10/10/18 09:45 Dose: Not Given Nystatin (Nystatin Oral Susp) 5 ml PO QID [facility] Last Admin: 10/10/18 09:51 Dose: 5 ml Pantoprazole Sodium (Protonix Ec Tab) 40 mg PO ACB [facility] Tamsulosin HCl (Flomax) 0.4 mg PO 1830 [facility] Last Admin: 10/09/18 17:52 Dose: 0.4 mg Vitamin E (Vitamin E 400 Units Cap) 400 intlu PO DAILY [facility] Last Admin: 10/10/18 09:51 Dose: 400 intlu - Labs Labs: 10/09/18 09:45 10/09/18 09:45 - Constitutional Appears: Non-toxic, No Acute Distress - Eye Exam Eye Exam: EOMI, PERRL - ENT Exam ENT Exam: Mucous Membranes Moist - Respiratory Exam Respiratory Exam: Clear to Ausculation Bilateral. absent: Rales, Rhonchi, Wheezes - Cardiovascular Exam Cardiovascular Exam: RRR, +S1, +S2 - GI/Abdominal Exam GI & Abdominal Exam: Soft, Normal Bowel Sounds. absent: Distended, Firm, Guarding, Rigid, Tenderness, Organomegaly - Extremities Exam Extremities Exam: Normal Inspection. absent: Pedal Edema - Neurological Exam Neurological Exam: Altered, Awake - Psychiatric Exam Psychiatric exam: Normal Affect, Normal Mood - Skin Skin Exam: Dry, Warm Assessment and Plan - Assessment and Plan (Free Text) Assessment: Patient is a 72 year old male with PMHx significant for CAD s/p PCI and CABG, prior CVA, COPD, DM, BPH who presented with altered mentation, fever, nausea/vomiting. -Altered mental status - prior CVA with possible exacerbation of prior lesion -Abnormal imaging of the GI tract - distal esophagitis -Hiatal hernia Plan: -Abnormal imaging on CT may be related to normal peristalsis, hiatal hernia but could represent lesion, inflammation, infection -Esophagram pending -Tolerating diet and no episodes of regurgitation/vomiting -Will consider EGD this week pending medical optimization -Diet as tolerated for now <Deepak Byrne V - Last Filed: 10/10/18 22:15> Objective - Vital Signs/Intake and Output Vital Signs (last 24 hours): Temp Pulse Resp BP Pulse Ox 98 F 77 19 149/76 98 10/10/18 18:00 10/10/18 22:00 10/10/18 18:00 10/10/18 18:00 10/10/18 06:00 - Medications Medications: Current Medications Acetaminophen (Tylenol 650 Mg Supp) 650 mg RC Q4H PRN PRN Reason: Fever >100.4 F Last Admin: 10/04/18 06:03 Dose: 650 mg Acetaminophen (Tylenol 325mg Tab) 650 mg PO Q4 PRN PRN Reason: Fever >100.4 F Last Admin: 10/08/18 16:34 Dose: 650 mg Acetaminophen (Tylenol 325mg Tab) 650 mg PO Q6H PRN PRN Reason: Pain, moderate (4-7) Last Admin: 10/09/18 16:01 Dose: 650 mg Aspirin (Ecotrin) 81 mg PO DAILY [facility] Last Admin: 10/10/18 09:51 Dose: 81 mg Atorvastatin Calcium (Lipitor) 20 mg PO DAILY [facility] Last Admin: 10/10/18 09:51 Dose: 20 mg Clopidogrel Bisulfate (Plavix) 75 mg PO DAILY [facility] Last Admin: 10/10/18 09:51 Dose: 75 mg Escitalopram Oxalate (Lexapro) 10 mg PO DAILY [facility] Last Admin: 10/10/18 09:51 Dose: 10 mg Magnesium Oxide (Mag-Ox) 400 mg PO DAILY [facility] Last Admin: 10/10/18 09:51 Dose: 400 mg Metoprolol Tartrate (Lopressor) 12.5 mg PO DAILY [facility] Last Admin: 10/10/18 09:52 Dose: 12.5 mg Non-Formulary Medication (Celecoxib [Celebrex]) 200 mg PO DAILY [facility] Last Admin: 10/10/18 09:44 Dose: Not Given Non-Formulary Medication (Dutasteride [Avodart]) 0.5 mg PO DAILY [facility] Last Admin: 10/10/18 09:44 Dose: Not Given Non-Formulary Medication (Multivitamin/Iron/Folic Acid [Centrum Adults Tablet]) 1 tab PO DAILY [facility] Last Admin: 12/04/18 09:45 Dose: Not Given Nystatin (Nystatin Oral Susp) 5 ml PO QID [facility] Last Admin: 10/10/18 21:54 Dose: 5 ml Pantoprazole Sodium (Protonix Ec Tab) 40 mg PO ACB [facility] Tamsulosin HCl (Flomax) 0.4 mg PO 1830 [facility] Last Admin: 10/09/18 17:52 Dose: 0.4 mg Vitamin E (Vitamin E 400 Units Cap) 400 intlu PO DAILY [facility] Last Admin: 10/10/18 09:51 Dose: 400 intlu - Labs Labs: 10/09/18 09:45 10/09/18 09:45 Attending/Attestation - Attestation I have personally seen and examined this patient.: Yes I have fully participated in the care of the patient.: Yes I have reviewed all pertinent clinical information, including history, physical exam and plan: Yes Notes (Text): This is an addendum to GI progress report dictated by the GI Fellow. The patient was seen and examined earlier. Medical records, lab studies, imagings were reviewed. Last 24 hours events reviewed. Agreed with the above treatment plan as outlined in GI Fellow 's notes with the addition of the following Esophagram was reviewed, unremarkable Tolerating diet Poor dentition Discussed with PCP and family Elective EGD Continue PPI 10/10/18 22:13
--- NOTE | 2018-10-10 12:38 | PN ---
DATE: 10/09/2018 SUBJECTIVE: The patient is a 72-year-old male who was admitted to the [facility] 6 days ago with acute altered mental status. He is known to have a history of CVA in the past, TIA, coronary artery stenting, coronary artery bypass graft, diabetes controlled by diet. The change in mental status was rather sudden which is what prompted his to bring him to the emergency room for evaluation. 2 sets of blood cultures have been negative over the past few days and mental status had somewhat cleared; however, the patient remains quite confused. When seen today, he is much more open, he recognized me, he is willing to talk to me and will let me examine him. OBJECTIVE: HEART: Regular. LUNGS: Clear anteriorly and laterally. ABDOMEN: Soft and nontender. LABORATORY DATA: Today, blood cultures have been negative. This morning's laboratory shows a white blood cell count to be 7.1, hemoglobin and hematocrit are 14.7 and 42.9 respectively. Blood urea nitrogen is 16 with a creatinine of 0.5. He is afebrile. Blood pressure is 153/83. At this time, he is off his antibiotics. We are beginning physical therapy. During his hospital stay, he underwent CT scan of the abdomen and pelvis and this showed diverticulosis with mild wall thickening of the distal descending, sigmoid colon with some vague infiltration changes on the adjacent mesentery. It is felt that this could represent some acute diverticulitis. There is some wall thickening of the distal pylorus and proximal duodenum which raises the possibility of gastritis, duodenitis or peptic ulcer disease. There is also some evidence of gastroesophageal reflux with some wall thickening of the distal esophagus with small right-sided effusion and trace left-sided effusion. As the patient is alert, we are encouraging physical activity, physical therapy is to be started. The patient will be reevaluated in the morning. Dr. Byrne, the edi architect is also consulting on the patient perhaps when the patient is more medically stable. We will consider undergoing esophagogastroduodenoscopy and/or colonoscopy. Hank Wagner MD MTDD
--- NOTE | 2018-10-10 13:09 | RAD ---
Date of service: 10/10/2018 HISTORY: Dysphagia. COMPARISON: None. TECHNIQUE: Single contrast esophagram was performed. FINDINGS: Patient tolerated procedure well. ESOPHAGUS: Esophageal mucosa appeared preserved. No evidence of stricture or mass lesion. HIATAL HERNIA: None demonstrated. GASTROESOPHAGEAL REFLUX: Not demonstrated. OTHER FINDINGS: None. IMPRESSION: Unremarkable esophagram.
--- NOTE | 2018-10-10 13:20 | PN ---
DATE: 10/10/2018 SUBJECTIVE: The patient is in bed, in no acute distress, nontoxic. OBJECTIVE: VITAL SIGNS: Temperature is 98, blood pressure is 136/80, respiratory rate 20, heart rate of 68. HEENT: Unremarkable. NECK: Supple. LUNGS: Have decreased breath sounds. HEART: Normal S1, S2. ABDOMEN: Soft, nontender. LABORATORY EXAMINATION: Reveals a white count of 7.8, hemoglobin of 14. Chemistries reveals a BUN of 16, creatinine of 0.5. Procalcitonin is noted and the urinalysis is noted and influenza is negative. Blood cultures are no growth and urine cultures are negative. ASSESSMENT AND PLAN: A 72-year-old male seen earlier this morning, with coronary artery disease, coronary bypass graft, transient ischemic attack, cerebrovascular accident x3 and diabetes mellitus who was admitted initially with a change in mental status which is not baseline is resolved and with SIRS (systemic inflammatory response syndrome) and currently off of antibiotics, afebrile. Cultures negative and the patient had a CT scan of the abdomen and pelvis. MARIANO is working up the patient's esophageal, upper endoscopy and esophagogram. We will see the patient off of antibiotics for now. The patient is at risk for developing nosocomial infections. Osmany Botello MD
--- NOTE | 2018-10-10 16:24 | HP ---
DATE OF EXAM: 10/10/2018 HISTORY OF PRESENT ILLNESS: The patient is a 72-year-old male who was brought to the emergency room because of mental status changes and confusion. As per the patient's , he was in normal state of health the day before. He was lucid and talkative; however, on the morning of admission, he was quite confused and belligerent. Therefore squad was called and the patient was brought to the emergency room, evaluated and admitted. The patient has a history of diet control diabetes, coronary artery disease, status post PTCA and coronary artery bypass grafting in 1998. He had a cerebrovascular accident in 2012 and again in 2016. He also has a history of COPD, benign prostatic hypertrophy, gastroesophageal reflux disease and hearing loss. He had been admitted several times in the past with mental status changes which at that time were contributed to urinary tract infection or pneumonia. SOCIAL HISTORY: The patient is a former smoker. He is a nonalcoholic drinker. ALLERGIES: HE HAS NO KNOWN MEDICAL ALLERGIES. MEDICATIONS AT THE TIME OF ADMISSION: Included Celebrex 200 mg once a day, simvastatin 40 mg, Flexeril 10 mg, Lexapro 10 mg, Flomax 0.4 mg, Ecotrin 81 mg, Plavix 75 mg, Avodart 0.5 mg, vitamin E 400 international units daily, metoprolol tartrate 12.5 mg daily. He also has been taking multivitamins and folic acid. REVIEW OF SYSTEMS: Otherwise unremarkable. PHYSICAL EXAMINATION: The patient is confused. The patient is rather belligerent, would not let me examine him. Therefore, I will refer to the physical exam noted on his admission sheet of the emergency room as the patient would not let me touch him. As per the emergency room, the physical exam was essentially unremarkable. There was no obvious signs of infection. The patient's CAT scan of the head was performed without contrast, which was negative for intraparenchymal hemorrhage. There were no acute findings. There was no hydrocephalus. A chest x-ray showed no acute disease. EKG showed normal sinus rhythm with left-axis deviation and a right bundle-branch block. LABORATORY STUDIES: Shows the white blood cell count to be normal at 9.6, hemoglobin and hematocrit are 15.5 and 45.1 and platelet count is 191. The serum chemistries, sodium is 136, potassium was 4.3, blood urea nitrogen is 17, creatinine is 0.6, glucose is elevated at 263. CK and troponins were not done. His blood pressure is 153/83 and heart rate is 82. The patient is admitted with acute mental status changes. Consultation is requested from Dr. Botello, the Infectious Disease specialist as well as Dr. Petersen, the Neurologist. The patient will be reevaluated in the morning. Hank Wagner MD
--- NOTE | 2018-10-10 20:51 | CON ---
DATE OF CONSULTATION: 10/10/2018 HISTORY OF PRESENT ILLNESS: Shortly, the patient is a 72-year-old male with not known previous psychiatric history. The patient was admitted on the medical side for evaluation of altered mental status. The patient was combative and aggressive towards his who called 911. The patient was having urinary incontinence and multiple episodes of vomiting. The patient was admitted on the medical side in delirium stage. Psych consult was called for evaluation of altered mental status and agitation. The patient was seen and examined today. The patient presented to be pleasant and cooperative. There is no aggression or agitation observed or reported as per staff. The patient is not aggressive, pleasant, cooperative with the treatment and the patient is compliant with the offered plan. Going back to the patient's presentation, the patient knows that he is in the hospital. The patient does not know what happened prior to coming to the hospital, but reported episode of being confused as well as passed out and fall. The patient denied being depressed, but reported he is feeling upset being in the hospital. The patient reported that he does not hear voices, does not see anything unusual. The patient feels comfortable in the hospital. The patient denied feeling anxious, reported that he slept well. Previous history reviewed. The patient was seen by Dr. Klein in 2012. Impression was the patient was agitated, but then confused, combative and incoherent and had the similar presentation as now. The patient does not have history of being admitted to the psychiatric inpatient unit, does not have history of suicidal attempts. Orders reviewed. Vital signs seem to be stable. Temperature 98.6, pulse is 82, blood pressure 129/79, respirations 19. MEDICATIONS: Reviewed. The patient is on Tylenol, aspirin, Lipitor, Plavix, Lexapro 10 mg daily, magnesium oxide, Lopressor, celecoxib, multivitamins, nystatin, Protonix, Flomax and vitamin E. LABS: Reviewed. At the time of admission, the patient had leukocytosis, which resolved. Chemistry reviewed. Urinalysis reviewed. Serology reviewed. MENTAL STATUS EXAMINATION: The patient presented to be alert, pleasant. The patient knows that he is in [facility], knows year, but does not know the date, knows the season. Mood described as feeling okay. Affect was constricted, but reactive. Mood congruent. Thought process seems to be coherent, but concrete. Thought Content: The patient does not present to be psychotic, agitated or aggressive. Adamantly denied thoughts of harming himself or others. As per staff, the patient went back to his normal baseline. IMPRESSION AND PLAN: Most likely, the patient was in delirium stage, which is improved. The patient was seen by neurologist, primary care physician. This mortgage loan underwriter would recommend to continue current management. Continue current medication. The patient posed no imminent danger to self or others, cleared for TCU. Should you have any questions, give me a call back. Thank you very much for letting me participate in the care of your patient. Zoila Tanner MD
[2018-10-10 23:41] VITALS: O2SAT 95
[2018-10-11] MEDS ORDERED: Pantoprazole 40 mg EC Tab PO SCH (07:30)
--- NOTE | 2018-10-11 08:17 | PN ---
DATE: 10/10/2018 SUBJECTIVE: The patient was seen this Tuesday evening in room 263, bed 2, resting comfortably in bed. Much more clear and alert than on prior visit. He has no further fever or cough. Mental status has improved. Notes by Neurology, Psychiatry, and Infectious Disease appreciated. IMPRESSION: Suspected viral syndrome with fever and altered mental status related to fever and acute illness. PLAN: Awaiting transfer to TCU when bed available. Josué Wagner MD
--- NOTE | 2018-10-11 09:53 | CP.PCM.PN ---
Subjective - Date & Time of Evaluation Date of Evaluation: 10/11/18 Time of Evaluation: 07:05 - Subjective Subjective: PGY6 GI Fellow Progress Note Patient seen and examined bedside this morning. The patient states that he is feeling well this morning. No throat discomfort or heartburn presently. Did have episode of heartburn with pasta/tomato sauce last night for dinner. 12 system ROS performed and negative except where stated Objective - Vital Signs/Intake and Output Vital Signs (last 24 hours): Temp Pulse Resp BP Pulse Ox 98.2 F 71 18 151/72 H 95 10/11/18 06:00 10/11/18 06:00 10/11/18 06:00 10/11/18 06:00 10/11/18 06:00 Intake and Output: 10/11/18 10/11/18 06:59 18:59 Intake Total 0 Output Total 0 Balance 0 - Medications Medications: Current Medications Acetaminophen (Tylenol 650 Mg Supp) 650 mg RC Q4H PRN PRN Reason: Fever >100.4 F Last Admin: 10/04/18 06:03 Dose: 650 mg Acetaminophen (Tylenol 325mg Tab) 650 mg PO Q4 PRN PRN Reason: Fever >100.4 F Last Admin: 10/08/18 16:34 Dose: 650 mg Acetaminophen (Tylenol 325mg Tab) 650 mg PO Q6H PRN PRN Reason: Pain, moderate (4-7) Last Admin: 10/09/18 16:01 Dose: 650 mg Aspirin (Ecotrin) 81 mg PO DAILY [facility] Last Admin: 10/10/18 09:51 Dose: 81 mg Atorvastatin Calcium (Lipitor) 20 mg PO DAILY [facility] Last Admin: 10/10/18 09:51 Dose: 20 mg Clopidogrel Bisulfate (Plavix) 75 mg PO DAILY [facility] Last Admin: 10/10/18 09:51 Dose: 75 mg Escitalopram Oxalate (Lexapro) 10 mg PO DAILY [facility] Last Admin: 10/10/18 09:51 Dose: 10 mg Magnesium Oxide (Mag-Ox) 400 mg PO DAILY [facility] Last Admin: 10/10/18 09:51 Dose: 400 mg Metoprolol Tartrate (Lopressor) 12.5 mg PO DAILY [facility] Last Admin: 10/10/18 09:52 Dose: 12.5 mg Non-Formulary Medication (Celecoxib [Celebrex]) 200 mg PO DAILY [facility] Last Admin: 10/10/18 09:44 Dose: Not Given Non-Formulary Medication (Dutasteride [Avodart]) 0.5 mg PO DAILY [facility] Last Admin: 10/10/18 09:44 Dose: Not Given Non-Formulary Medication (Multivitamin/Iron/Folic Acid [Centrum Adults Tablet]) 1 tab PO DAILY [facility] Last Admin: 10/10/18 09:45 Dose: Not Given Nystatin (Nystatin Oral Susp) 5 ml PO QID [facility] Last Admin: 10/10/18 21:54 Dose: 5 ml Pantoprazole Sodium (Protonix Ec Tab) 40 mg PO ACB [facility] Last Admin: 10/11/18 07:01 Dose: 40 mg Tamsulosin HCl (Flomax) 0.4 mg PO 1830 [facility] Last Admin: 10/09/18 17:52 Dose: 0.4 mg Vitamin E (Vitamin E 400 Units Cap) 400 intlu PO DAILY [facility] Last Admin: 10/10/18 09:51 Dose: 400 intlu - Labs Labs: 10/09/18 09:45 10/09/18 09:45 - Constitutional Appears: Non-toxic, No Acute Distress - Eye Exam Eye Exam: EOMI, PERRL - ENT Exam ENT Exam: Mucous Membranes Moist - Respiratory Exam Respiratory Exam: Clear to Ausculation Bilateral. absent: Rales, Rhonchi, Wheezes - Cardiovascular Exam Cardiovascular Exam: RRR, +S1, +S2 - GI/Abdominal Exam GI & Abdominal Exam: Soft, Normal Bowel Sounds. absent: Distended, Firm, Guarding, Rigid, Tenderness, Organomegaly - Extremities Exam Extremities Exam: Normal Inspection. absent: Pedal Edema - Neurological Exam Neurological Exam: Alert, Awake, Oriented x3 - Psychiatric Exam Psychiatric exam: Normal Affect, Normal Mood - Skin Skin Exam: Dry, Warm Assessment and Plan - Assessment and Plan (Free Text) Assessment: Patient is a 72 year old male with PMHx significant for CAD s/p PCI and CABG, prior CVA, COPD, DM, BPH who presented with altered mentation, fever, nausea/vomiting. -GERD -Altered mental status - prior CVA with possible exacerbation of prior lesion, resolved -Abnormal imaging of the GI tract -Hiatal hernia Plan: -Abnormal imaging on CT may be related to normal peristalsis, hiatal hernia but could represent lesion, inflammation, infection -Given recent changes and lability in mentation, will avoid use of anesthesia on this patient presently -Recommend close outpatient follow up and elective EGD for further investigation -Intermittent dyspepsia noted; educated on anti-reflux lifestyle, trigger foods -Continue PPI -OK for D/C from GI perspective
[2018-10-11] MEDS: Non Formulary Medication (Celecoxib [Celebrex] 200 MG) PO SCH (10:11)
[2018-10-11] MEDS: MULTIVITAMIN PO SCH (10:12)
[2018-10-11] MEDS: FOLIC ACID PO SCH (10:12)
[2018-10-11] MEDS: IRON PO SCH (10:12)
[2018-10-11] MEDS: Nystatin 100,000 Units/ml Oral Susp 5 ml UD PO SCH ×3 (10:16→17:38)
[2018-10-11] MEDS: Magnesium Oxide 400 mg Tab UD PO SCH (10:17)
[2018-10-11 12:58] VITALS: RESP 20
--- NOTE | 2018-10-11 13:52 | CP.PCM.PN ---
<Colby Simms - Last Filed: 10/11/18 13:58> Subjective - Date & Time of Evaluation Date of Evaluation: 10/11/18 Time of Evaluation: 13:50 - Subjective Subjective: Psychiatry Progress note. Pt seen and examined at bedside today. No acute distress. No overnight events. Psych evaluation for altered mental status and agitation. Pt is pleasant and cooperative. Patient denies any HI/SI. Denies auditory and visual hallucin ations. Denies paranoia. Psych is signing off today. Objective - Vital Signs/Intake and Output Vital Signs (last 24 hours): Temp Pulse Resp BP Pulse Ox 98 F 83 20 129/63 95 10/11/18 12:00 10/11/18 12:00 10/11/18 12:00 10/11/18 12:00 10/11/18 09:00 Intake and Output: 10/11/18 10/11/18 06:59 18:59 Intake Total 0 Output Total 0 Balance 0 - Medications Medications: Current Medications Acetaminophen (Tylenol 650 Mg Supp) 650 mg RC Q4H PRN PRN Reason: Fever >100.4 F Last Admin: 10/04/18 06:03 Dose: 650 mg Acetaminophen (Tylenol 325mg Tab) 650 mg PO Q4 PRN PRN Reason: Fever >100.4 F Last Admin: 10/08/18 16:34 Dose: 650 mg Acetaminophen (Tylenol 325mg Tab) 650 mg PO Q6H PRN PRN Reason: Pain, moderate (4-7) Last Admin: 10/09/18 16:01 Dose: 650 mg Aspirin (Ecotrin) 81 mg PO DAILY [facility] Last Admin: 10/11/18 10:17 Dose: 81 mg Atorvastatin Calcium (Lipitor) 20 mg PO DAILY [facility] Last Admin: 10/11/18 10:17 Dose: 20 mg Clopidogrel Bisulfate (Plavix) 75 mg PO DAILY [facility] Last Admin: 10/11/18 10:16 Dose: 75 mg Escitalopram Oxalate (Lexapro) 10 mg PO DAILY [facility] Last Admin: 10/11/18 10:17 Dose: 10 mg Magnesium Oxide (Mag-Ox) 400 mg PO DAILY [facility] Last Admin: 10/11/18 10:17 Dose: 400 mg Metoprolol Tartrate (Lopressor) 12.5 mg PO DAILY [facility] Last Admin: 10/11/18 10:15 Dose: 12.5 mg Non-Formulary Medication (Celecoxib [Celebrex]) 200 mg PO DAILY [facility] Last Admin: 10/11/18 10:11 Dose: Not Given Non-Formulary Medication (Dutasteride [Avodart]) 0.5 mg PO DAILY [facility] Last Admin: 10/11/18 10:11 Dose: Not Given Non-Formulary Medication (Multivitamin/Iron/Folic Acid [Centrum Adults Tablet]) 1 tab PO DAILY [facility] Last Admin: 10/11/18 10:12 Dose: Not Given Nystatin (Nystatin Oral Susp) 5 ml PO QID [facility] Last Admin: 10/11/18 10:16 Dose: 5 ml Pantoprazole Sodium (Protonix Ec Tab) 40 mg PO ACB [facility] Last Admin: 10/11/18 07:01 Dose: 40 mg Tamsulosin HCl (Flomax) 0.4 mg PO 1830 [facility] Last Admin: 10/09/18 17:52 Dose: 0.4 mg Vitamin E (Vitamin E 400 Units Cap) 400 intlu PO DAILY [facility] Last Admin: 10/11/18 10:16 Dose: 400 intlu - Labs Labs: 10/09/18 09:45 10/09/18 09:45 - Constitutional Appears: Non-toxic, No Acute Distress - Head Exam Head Exam: ATRAUMATIC, NORMAL INSPECTION - Eye Exam Eye Exam: EOMI - Neck Exam Neck Exam: Normal Inspection - Respiratory Exam Respiratory Exam: NORMAL BREATHING PATTERN - Cardiovascular Exam Cardiovascular Exam: +S1, +S2 - GI/Abdominal Exam GI & Abdominal Exam: Soft - Extremities Exam Extremities Exam: Full ROM, Normal Inspection - Neurological Exam Neurological Exam: Alert, Awake, CN II-XII Intact - Psychiatric Exam Psychiatric exam: Flat Affect - Skin Skin Exam: Dry, Intact, Normal Color, Warm Assessment and Plan - Assessment and Plan (Free Text) Assessment: This is a 72 yo male, admitted on medical side for altered mental status, fever, and SIRS criteria. Psych asked to evaluate for ams and delirium 1. Altered mental status -likely secondary to delirium. -doing much better -continue current management -continue current medication per psych 2. Hx of anxiety disorder -continue lexapro 10 mg po daily DISPO: delirium much improved, can continue plan for TCU; psych is signing off. please reconsult as necessary. <Zoila Tanner - Last Filed: 10/11/18 15:58> Subjective - Subjective Subjective: pt most likely had delirium which resolved no agitation or aggression pt was observed eating with good appetite mood described "great" no psychotic symptoms labs and vs reviewed Temp Pulse Resp BP Pulse Ox 98 F 83 20 129/63 95 10/11/18 12:00 10/11/18 12:00 10/11/18 12:00 10/11/18 12:00 10/11/18 09:00 pt presented well no acute distress psychiatric team is signing off should you have any questions call me back Objective - Vital Signs/Intake and Output Vital Signs (last 24 hours): Temp Pulse Resp BP Pulse Ox 98 F 83 20 129/63 95 10/11/18 12:00 10/11/18 12:00 10/11/18 12:00 10/11/18 12:00 10/11/18 09:00 Intake and Output: 10/11/18 10/11/18 06:59 18:59 Intake Total 0 Output Total 0 Balance 0 - Medications Medications: Current Medications Acetaminophen (Tylenol 650 Mg Supp) 650 mg RC Q4H PRN PRN Reason: Fever >100.4 F Last Admin: 10/04/18 06:03 Dose: 650 mg Acetaminophen (Tylenol 325mg Tab) 650 mg PO Q4 PRN PRN Reason: Fever >100.4 F Last Admin: 10/08/18 16:34 Dose: 650 mg Acetaminophen (Tylenol 325mg Tab) 650 mg PO Q6H PRN PRN Reason: Pain, moderate (4-7) Last Admin: 10/09/18 16:01 Dose: 650 mg Aspirin (Ecotrin) 81 mg PO DAILY [facility] Last Admin: 10/11/18 10:17 Dose: 81 mg Atorvastatin Calcium (Lipitor) 20 mg PO DAILY [facility] Last Admin: 10/11/18 10:17 Dose: 20 mg Clopidogrel Bisulfate (Plavix) 75 mg PO DAILY [facility] Last Admin: 10/11/18 10:16 Dose: 75 mg Escitalopram Oxalate (Lexapro) 10 mg PO DAILY [facility] Last Admin: 10/11/18 10:17 Dose: 10 mg Magnesium Oxide (Mag-Ox) 400 mg PO DAILY [facility] Last Admin: 10/11/18 10:17 Dose: 400 mg Metoprolol Tartrate (Lopressor) 12.5 mg PO DAILY [facility] Last Admin: 10/11/18 10:15 Dose: 12.5 mg Non-Formulary Medication (Celecoxib [Celebrex]) 200 mg PO DAILY [facility] Last Admin: 10/11/18 10:11 Dose: Not Given Non-Formulary Medication (Dutasteride [Avodart]) 0.5 mg PO DAILY [facility] Last Admin: 10/11/18 10:11 Dose: Not Given Non-Formulary Medication (Multivitamin/Iron/Folic Acid [Centrum Adults Tablet]) 1 tab PO DAILY [facility] Last Admin: 10/11/18 10:12 Dose: Not Given Nystatin (Nystatin Oral Susp) 5 ml PO QID [facility] Last Admin: 10/11/18 15:05 Dose: 5 ml Pantoprazole Sodium (Protonix Ec Tab) 40 mg PO ACB [facility] Last Admin: 10/11/18 07:01 Dose: 40 mg Tamsulosin HCl (Flomax) 0.4 mg PO 1830 [facility] Last Admin: 10/09/18 17:52 Dose: 0.4 mg Vitamin E (Vitamin E 400 Units Cap) 400 intlu PO DAILY [facility] Last Admin: 10/11/18 10:16 Dose: 400 intlu - Labs Labs: 10/09/18 09:45 10/09/18 09:45
[2018-10-11 18:25] VITALS: BP 156/82; PULSE 80; TEMP 98.4
== END 2018-10-11 20:29 | DRG 866 ==
LOC: ED 15:24 → ERH 20:21 → 2RNO 10-04 00:12
PROVIDERS: ADMIT Internal Medicine; ATTEND Internal Medicine
DX: B34.9 Viral infection, unspecified (principal); R65.10 Systemic inflammatory response syndrome (SIRS) of non-infectious origin without acute organ dysfunction; R47.01 Aphasia; I10 Essential (primary) hypertension; R50.9 Fever, unspecified; I25.10 Atherosclerotic heart disease of native coronary artery without angina pectoris; J44.9 Chronic obstructive pulmonary disease, unspecified; E11.65 Type 2 diabetes mellitus with hyperglycemia; N40.0 Benign prostatic hyperplasia without lower urinary tract symptoms; Z86.73 Personal history of transient ischemic attack (TIA), and cerebral infarction without residual deficits; K21.0 Gastro-esophageal reflux disease with esophagitis; R41.0 Disorientation, unspecified; E78.5 Hyperlipidemia, unspecified; H91.90 Unspecified hearing loss, unspecified ear; Z95.1 Presence of aortocoronary bypass graft; Z95.5 Presence of coronary angioplasty implant and graft; Z87.891 Personal history of nicotine dependence; K44.9 Diaphragmatic hernia without obstruction or gangrene; Z79.899 Other long term (current) drug therapy; K20.9 Esophagitis, unspecified; E83.42 Hypomagnesemia

== ENCOUNTER 2018-10-11 20:29 | Inpatient (IN) | payer OTHER, BC ==
[2018-10-12 00:30] VITALS: BMI 32.7
[2018-10-12] MEDS: Pantoprazole 40 mg EC Tab PO SCH (06:13)
--- NOTE | 2018-10-12 09:05 | CP.PCM.PCO ---
Physician Communication Note - Physician Communication Note Physician Communication Note: pt was seen on the the 2floor, delirium cleared, no need f/u by psychiatry
[2018-10-12] MEDS: Magnesium Oxide 400 mg Tab UD PO SCH (09:33)
[2018-10-12] MEDS: Multivitamin With Minerals Tab PO SCH (09:33)
[2018-10-12] MEDS: Nystatin 100,000 Units/ml Oral Susp 5 ml UD PO SCH ×4 (09:35→21:08)
[2018-10-12] MEDS: Non Formulary Medication (Celecoxib [Celebrex] 200 MG) PO SCH (11:05)
--- NOTE | 2018-10-12 14:34 | CON ---
DATE: 10/12/2018 The patient is seen in the Transitional Care earlier this morning. CHIEF COMPLAINT: Weakness times several days. HISTORY OF PRESENT ILLNESS: This is a 72-year-old male with past medical history significant for coronary artery disease, coronary bypass graft, cerebrovascular accident, chronic obstructive lung disease, diabetes mellitus, GERD who was admitted with change in mental status and was given antibiotics. Workup revealed to be negative including cultures, procalcitonin, CAT scan of the head was negative, CAT scan of the chest was negative, CAT scan of the abdomen was negative. Urine cultures and blood cultures are negative. The patient is admitted to Transitional Care for further followup and physical therapy. REVIEW OF SYSTEMS: Reveals a 14-point review of systems performed and past medical history is significant for TIA, coronary artery disease, COPD, diabetes mellitus. PAST SURGICAL HISTORY: Reveals the patient to have cardiac catheterization and coronary bypass graft. PHYSICAL EXAMINATION: GENERAL: The patient is in bed, in no acute distress. VITAL SIGNS: Temperature of 98, blood pressure is 170/80, respiratory rate 20, heart rate of 98. Examination of HEENT is unremarkable. NECK: Supple. LUNGS: Have decreased breath sounds. HEART: Normal S1, S2. ABDOMEN: Soft, nontender. No organomegaly, no rebound, no guarding, no masses. LABORATORY EXAMINATION: Reviewed and showed a white count to be normal, hemoglobin of 14. Creatinine is 0.5 and cultures are all negative. CAT scan is negative. ASSESSMENT AND PLAN: A 72-year-old male who is admitted with systemic inflammatory response syndrome, change in mental status, significant workup done which was negative and now is baseline mental status, all cultures negative, off antibiotics in a patient with coronary artery disease, coronary bypass graft, cerebrovascular accident, diabetes mellitus. The patient also has esophageal findings on CAT scan, which the GI is working up at this time. The patient is off antibiotics, afebrile, is at risk for developing nosocomial infections. Would recommend discontinuing heparin lock if there is . We will follow closely with you. He is at risk for developing nosocomial infections. Osmany Botello MD
[2018-10-13] MEDS: Pantoprazole 40 mg EC Tab PO SCH (05:32)
[2018-10-13] MEDS: Magnesium Oxide 400 mg Tab UD PO SCH (10:20)
[2018-10-13] MEDS: Nystatin 100,000 Units/ml Oral Susp 5 ml UD PO SCH ×4 (10:21→22:03)
[2018-10-13] MEDS: Multivitamin With Minerals Tab PO SCH (10:21)
--- NOTE | 2018-10-13 12:46 | PN ---
DATE: 10/13/2018 SUBJECTIVE: The patient is a 72-year-old male with a history of coronary artery disease status post coronary artery bypass grafting, status post PTCA. He also has a history of cerebrovascular accidents chronic obstructive pulmonary disease, benign prostatic hypertrophy, gastroesophageal reflux disease who was admitted to [facility] on 10/03/2018 with mental status changes. His workup in the medical floors has been essentially negative. It was felt that the patient possibly had a viral syndrome with a fever and causing his mental status changes. As the patient improved, arrangements were made for him to be transferred to the Transitional Care Unit for physical therapy in ambulatory strength and endurance. When seen today, the patient is sitting up in a chair. He recently returned from the exercise room. He is feeling well. He was expressing his willingness to stay for the full 8 days at the Transitional Care Unit. His appetite is good. Bowel movements and urine are regular. PHYSICAL EXAMINATION: GENERAL: Essentially unremarkable. LUNGS: Clear. HEART: Regular. ABDOMEN: Soft and nontender. We will continue to follow the patient closely. He is to be reevaluated in the morning. Hank Wagner MD [place]
--- NOTE | 2018-10-13 12:54 | HP ---
DATE OF EXAM: 10/13/2018 HISTORY OF PRESENT ILLNESS: The patient is a 72-year-old sounds who was admitted on 10/03/2018 to the [facility] with mental status changes. He is known to have a history of coronary artery disease, status post PTCA, status post CABG, status post CVA x2 in 2012 and 2015. He also has a history of COPD, BPH and GERD. During his stay in the [facility]. Cultures were negative. It was felt the patient perhaps had a viral syndrome with subsequent fever causing the mental status changes. The patient was followed by Infectious Disease specialist on the floor and did well. As the patient improved, his empiric antibiotics were discontinued and arrangements were made for the patient to be transferred to the Transitional Care Unit. Today the patient is entering the Transitional Care Unit. His mental status is much, much improved. He is awake, alert and oriented. He follows commands. He is off antibiotics. His vital signs are stable. He is afebrile. Blood pressure is 121/69, heart rate is 70. During his hospital stay on 10/03/2018, CAT scan of the head, chest, and abdomen were negative. So the patient is admitted to the Transitional Care Unit for ambulatory strength and endurance. The patient will be continued to be followed closely. Hank Wagner MD
[2018-10-13] MEDS: Non Formulary Medication (Celecoxib [Celebrex] 200 MG) PO SCH (14:35)
--- NOTE | 2018-10-13 17:03 | CP.PCM.PN ---
Subjective - Date & Time of Evaluation Date of Evaluation: 10/13/18 Time of Evaluation: 10:30 - Subjective Subjective: Non-toxic, afebrile. Objective - Vital Signs/Intake and Output Vital Signs (last 24 hours): Temp Pulse Resp BP Pulse Ox 98.5 F 77 16 119/70 96 10/13/18 10:00 10/13/18 10:00 10/13/18 10:00 10/13/18 10:00 10/13/18 10:00 - Medications Medications: Current Medications Acetaminophen (Tylenol 650 Mg Supp) 650 mg RC Q4H PRN PRN Reason: Fever >100.4 F Acetaminophen (Tylenol 325mg Tab) 650 mg PO Q4H PRN; Protocol PRN Reason: Fever >100.4 F Acetaminophen (Tylenol 325mg Tab) 650 mg PO Q4H PRN; Protocol PRN Reason: Pain, Mild (1-3) Aspirin (Ecotrin) 81 mg PO 0800 [facility]; Protocol Last Admin: 10/13/18 08:52 Dose: 81 mg Atorvastatin Calcium (Lipitor) 20 mg PO DIN [facility]; Protocol Last Admin: 10/12/18 17:35 Dose: 20 mg Clopidogrel Bisulfate (Plavix) 75 mg PO DAILY [facility]; Protocol Last Admin: 10/13/18 10:21 Dose: 75 mg Escitalopram Oxalate (Lexapro) 10 mg PO DAILY [facility]; Protocol Last Admin: 10/13/18 10:20 Dose: 10 mg Magnesium Oxide (Mag-Ox) 400 mg PO DAILY [facility]; Protocol Last Admin: 10/13/18 10:20 Dose: 400 mg Metoprolol Tartrate (Lopressor) 12.5 mg PO 0800,1800 [facility]; Protocol Last Admin: 10/13/18 08:53 Dose: 12.5 mg Multivitamins/Minerals (Therapeutic-M Tab) 1 tab PO DAILY [facility] Last Admin: 10/13/18 10:21 Dose: 1 tab Non-Formulary Medication (Celecoxib [Celebrex]) 200 mg PO DAILY [facility] Last Admin: 10/13/18 14:35 Dose: Not Given Non-Formulary Medication (Dutasteride [Avodart]) 0.5 mg PO DAILY [facility] Last Admin: 10/13/18 14:35 Dose: Not Given Nystatin (Nystatin Oral Susp) 5 ml PO QID [facility]; Protocol Last Admin: 10/13/18 14:36 Dose: 5 ml Pantoprazole Sodium (Protonix Ec Tab) 40 mg PO 0600 [facility]; Protocol Last Admin: 10/13/18 05:32 Dose: 40 mg Tamsulosin HCl (Flomax) 0.4 mg PO 1800 [facility]; Protocol Last Admin: 10/12/18 17:34 Dose: 0.4 mg Vitamin E (Vitamin E 400 Units Cap) 400 intlu PO DAILY [facility]; Protocol Last Admin: 10/13/18 10:22 Dose: 400 intlu - Constitutional Appears: Chronically Ill - Head Exam Head Exam: NORMAL INSPECTION - Respiratory Exam Respiratory Exam: Decreased Breath Sounds - Cardiovascular Exam Cardiovascular Exam: +S1, +S2 - GI/Abdominal Exam GI & Abdominal Exam: Soft. absent: Tenderness Assessment and Plan - Assessment and Plan (Free Text) Plan: Assessment S/P systemic inflammatory response syndrome, with no evidence of sepsis CAD S/P PCI CVA DM Plan continue to monitor off antibiotics since he is at risk for nosocomial infections
[2018-10-14] MEDS: Pantoprazole 40 mg EC Tab PO SCH (06:25)
[2018-10-14] MEDS: Non Formulary Medication (Celecoxib [Celebrex] 200 MG) PO SCH (10:05)
[2018-10-14] MEDS: Magnesium Oxide 400 mg Tab UD PO SCH (11:05)
[2018-10-14] MEDS: Multivitamin With Minerals Tab PO SCH (11:05)
[2018-10-14] MEDS: Nystatin 100,000 Units/ml Oral Susp 5 ml UD PO SCH ×4 (11:05→21:36)
--- NOTE | 2018-10-14 11:46 | PN ---
DATE: 10/14/2018 SUBJECTIVE: The patient is a 72-year-old male with a history of coronary artery disease status post coronary artery bypass grafting, status post PTCA, status post cerebrovascular accident with a history of COPD and BPH and GERD who was admitted to [facility] on 10/03/2018 with mental status changes. It is believed that the mental status changes were due to fever secondary to a viral syndrome. During the hospital stay, the patient was treated with antibiotics followed by Dr. Botello, the Infectious Disease specialist. However, his cultures were negative. CAT scans were negative. The patient improved and antibiotics were all discontinued. The patient was transferred to the transitional care unit 3 days ago on 10/11/2018 and there he is doing well. When seen today, he is sitting up in a chair at bedside. He is feeling well. He is awaiting physical therapy. He seems to be well motivated. He voices no complaints. He did asked me to call his , which I did and had an extensive telephone conversation with her. She is very concerned about his prognosis, that this is fourth or fifth time he has been admitted under similar circumstances, just a sudden change in mental status, at times as a result of infection, but other times there is no apparent source of infection. CAT scans and MRIs have been negative in the past. We will continue to follow the patient, physical therapy is encouraged. Considering possible EGD which had been ordered for the patient to be done as an outpatient prior to this admission. Hank Wagner MD [id number]
--- NOTE | 2018-10-15 01:40 | CON ---
DATE: 10/14/2018 HISTORY OF PRESENT ILLNESS: This is a 72-year-old male with past medical history of coronary artery disease, COPD, diabetes, and GERD who came and admitted with a change in mental status. CAT scan of the head was negative. CAT scan of the chest was negative. Urine and blood cultures were negative. REVIEW OF SYSTEMS: A 10-point review of system was negative except change in mental status. PHYSICAL EXAMINATION: HEENT: Normocephalic and atraumatic. NECK: Supple. NEUROLOGIC: Awake and orientated to self and place. No aphasia. No problem . Spontaneous movement of the extremities noted. Deep tendon reflexes 1+. Plantars are downgoing. Sensory appears intact. Cerebellar, gait deferred. IMPRESSION AND PLAN: A 72-year-old admitted with change in mental status and workup was done. CAT scan of the negative. Continue present management and physical therapy. We will follow up. Fermín Petersen MD DATE: 10/14/2018 HISTORY OF PRESENT ILLNESS: This is a 72-year-old male with past medical history of coronary artery disease, COPD, diabetes, and GERD who came and admitted with a change in mental status. CAT scan of the head was negative. CAT scan of the chest was negative. Urine and blood cultures were negative. REVIEW OF SYSTEMS: A 10-point review of system was negative except change in mental status. PHYSICAL EXAMINATION: HEENT: Normocephalic and atraumatic. NECK: Supple. NEUROLOGIC: Awake and orientated to self and place. No aphasia. No problem . Spontaneous movement of the extremities noted. Deep tendon reflexes 1+. Plantars are downgoing. Sensory appears intact. Cerebellar, gait deferred. IMPRESSION AND PLAN: A 72-year-old admitted with change in mental status and workup was done. CAT scan of the negative. Continue present management and physical therapy. We will follow up. Fermín Petersen MD
--- NOTE | 2018-10-15 02:00 | PN ---
DATE: 10/14/2018 SUBJECTIVE: The patient is seen in bed, in no acute distress, and nontoxic. PHYSICAL EXAMINATION: VITAL SIGNS: Temperature is 98, blood pressure is 99/50, and respiratory rate of 18. HEENT: Unremarkable. NECK: Supple. LUNGS: Decreased breath sounds. HEART: Normal S1 and S2. ABDOMEN: Soft. LABORATORY DATA: Reviewed. ASSESSMENT AND PLAN: This is a 72-year-old male who was initially admitted to acute care with questionable change in mental status, had one episode of fever, and systemic inflammatory response syndrome. All cultures are negative. CAT scan was negative and workup is negative. Procalcitonin is negative. CAT scan of the abdomen was negative in a patient with coronary artery disease, cerebrovascular accident, diabetes currently. The patient is awake and alert, baseline mental status. He is at risk for developing nosocomial infection. We will follow with you. Osmany Botello MD
[2018-10-15] MEDS: Pantoprazole 40 mg EC Tab PO SCH (06:05)
[2018-10-15] MEDS: Non Formulary Medication (Celecoxib [Celebrex] 200 MG) PO SCH (09:55)
[2018-10-15] MEDS: Nystatin 100,000 Units/ml Oral Susp 5 ml UD PO SCH ×4 (09:58→21:23)
[2018-10-15] MEDS: Magnesium Oxide 400 mg Tab UD PO SCH (09:58)
[2018-10-15] MEDS: Multivitamin With Minerals Tab PO SCH (09:58)
--- NOTE | 2018-10-15 13:20 | PN ---
DATE: 10/15/2018 SUBJECTIVE: The patient is in bed in no acute distress, nontoxic. PHYSICAL EXAMINATION: VITAL SIGNS: Temperature is 98, blood pressure is 130/70, respiratory rate of 16. HEENT: Unremarkable. NECK: Supple. LUNGS: Have decreased breath sounds. HEART: Normal S1, S2. ABDOMEN: Soft, nontender. LABORATORY EXAMINATION: Reviewed. ASSESSMENT AND PLAN: This is a 72-year-old who was admitted to the acute care with a change in mental status, been have an episode of fever with diagnosis of systemic inflammatory response syndrome with negative, blood cultures negative. Urine cultures negative. CAT scan of the abdomen, negative. Chest x-ray, procalcitonin was negative. Currently now off of antibiotics. The patient's mental status baseline; however, the patient is at risk for developing nosocomial infections at this time. Osmany Botello MD
--- NOTE | 2018-10-15 15:03 | PN ---
DATE: 10/15/2018 DAILY PROGRESS NOTE SUBJECTIVE: The patient is a 72-year-old male with a history of coronary artery disease status post coronary artery bypass grafting, status post PTCA, status post cerebrovascular accident with a history of COPD, BPH and GERD who was admitted to [facility] on 10/03/2018 with mental status changes. He had been admitted with mental status changes several times in the past, most of which were involved with urinary tract infection or pneumonia. However, at this time, his cultures were negative. CAT scans were negative, although the patient did improve in a few days. He was on antibiotics during those days. As the patient improved, he was transferred to the Transitional Care Unit where he continues to do well. When seen today, he was sitting in his chair at bedside. He was in good spirits. He voiced no complaints. He was awake, alert and oriented. PHYSICAL EXAMINATION: LUNGS: Clear. HEART: Regular. ABDOMEN: Soft and nontender. EXTREMITIES: Free of cyanosis, clubbing or edema. CAT scans and MRIs have been negative in the past and we were contemplating EEG to rule out possible seizure causing his episodes of mental status change, therefore, the EEG order was written, and as per the patient, it will possibly be performed tomorrow, Tuesday. We will continue to follow the patient closely. Hank Wagner MD
[2018-10-16] MEDS: Pantoprazole 40 mg EC Tab PO SCH (07:10)
[2018-10-16] MEDS: Magnesium Oxide 400 mg Tab UD PO SCH (10:49)
[2018-10-16] MEDS: Multivitamin With Minerals Tab PO SCH (10:50)
[2018-10-16] MEDS: Nystatin 100,000 Units/ml Oral Susp 5 ml UD PO SCH ×4 (10:50→21:03)
[2018-10-16] MEDS: Non Formulary Medication (Celecoxib [Celebrex] 200 MG) PO SCH (10:52)
--- NOTE | 2018-10-16 12:16 | CP.PCM.PN ---
Subjective - Date & Time of Evaluation Date of Evaluation: 10/16/18 Time of Evaluation: 09:45 - Subjective Subjective: Comfortable, no fevers. Objective - Vital Signs/Intake and Output Vital Signs (last 24 hours): Temp Pulse Resp BP Pulse Ox 97.7 F 80 18 152/81 H 97 10/15/18 16:00 10/15/18 16:00 10/15/18 16:00 10/15/18 17:20 10/15/18 16:00 - Medications Medications: Current Medications Acetaminophen (Tylenol 650 Mg Supp) 650 mg RC Q4H PRN PRN Reason: Fever >100.4 F Acetaminophen (Tylenol 325mg Tab) 650 mg PO Q4H PRN; Protocol PRN Reason: Fever >100.4 F Last Admin: 10/15/18 18:39 Dose: 650 mg Acetaminophen (Tylenol 325mg Tab) 650 mg PO Q4H PRN; Protocol PRN Reason: Pain, Mild (1-3) Last Admin: 10/14/18 08:12 Dose: 650 mg Aspirin (Ecotrin) 81 mg PO 0800 [facility]; Protocol Last Admin: 10/15/18 08:23 Dose: 81 mg Atorvastatin Calcium (Lipitor) 20 mg PO DIN [facility]; Protocol Last Admin: 10/15/18 17:20 Dose: 20 mg Clopidogrel Bisulfate (Plavix) 75 mg PO DAILY [facility]; Protocol Last Admin: 10/15/18 09:58 Dose: 75 mg Escitalopram Oxalate (Lexapro) 10 mg PO DAILY [facility]; Protocol Last Admin: 10/15/18 09:58 Dose: 10 mg Magnesium Oxide (Mag-Ox) 400 mg PO DAILY [facility]; Protocol Last Admin: 10/15/18 09:58 Dose: 400 mg Metoprolol Tartrate (Lopressor) 12.5 mg PO 0800,1800 [facility]; Protocol Last Admin: 10/15/18 17:20 Dose: 12.5 mg Multivitamins/Minerals (Therapeutic-M Tab) 1 tab PO DAILY [facility] Last Admin: 10/15/18 09:58 Dose: 1 tab Non-Formulary Medication (Celecoxib [Celebrex]) 200 mg PO DAILY [facility] Last Admin: 10/15/18 09:55 Dose: 200 mg Non-Formulary Medication (Dutasteride [Avodart]) 0.5 mg PO DAILY [facility] Last Admin: 10/15/18 09:57 Dose: 0.5 mg Nystatin (Nystatin Oral Susp) 5 ml PO QID [facility]; Protocol Last Admin: 10/15/18 21:23 Dose: 5 ml Pantoprazole Sodium (Protonix Ec Tab) 40 mg PO 0600 [facility]; Protocol Last Admin: 10/16/18 07:10 Dose: 40 mg Tamsulosin HCl (Flomax) 0.4 mg PO 1800 [facility]; Protocol Last Admin: 10/15/18 17:19 Dose: 0.4 mg Vitamin E (Vitamin E 400 Units Cap) 400 intlu PO DAILY [facility]; Protocol Last Admin: 10/15/18 09:59 Dose: 400 intlu - Constitutional Appears: Chronically Ill - Head Exam Head Exam: NORMAL INSPECTION - Respiratory Exam Respiratory Exam: Decreased Breath Sounds - Cardiovascular Exam Cardiovascular Exam: +S1, +S2 - GI/Abdominal Exam GI & Abdominal Exam: Soft. absent: Tenderness Assessment and Plan - Assessment and Plan (Free Text) Plan: Assessment S/P systemic inflammatory response syndrome, with no evidence of sepsis CAD S/P PCI CVA DM Plan continue to monitor off antibiotics since he is at risk for hospital-acquired infections
[2018-10-17] MEDS: Pantoprazole 40 mg EC Tab PO SCH (07:00)
--- NOTE | 2018-10-17 09:40 | CP.PCM.PN ---
<Kulwinder Braden - Last Filed: 10/17/18 10:40> Subjective - Date & Time of Evaluation Date of Evaluation: 10/17/18 Time of Evaluation: 08:45 - Subjective Subjective: ID Progress Note - Dr. Romano Patient was seen and examined during physical therapy. Pt tolerating PT without incident. He is AAOx3 and conversing appropriately. No fevers, no acute complaints at this time. No acute or adverse events overnight as per nursing staff. Objective - Vital Signs/Intake and Output Vital Signs (last 24 hours): Temp Pulse Resp BP Pulse Ox 97.4 F L 63 20 126/62 97 10/16/18 16:00 10/17/18 08:21 10/16/18 16:00 10/16/18 16:00 10/16/18 16:00 - Medications Medications: Current Medications Acetaminophen (Tylenol 650 Mg Supp) 650 mg RC Q4H PRN PRN Reason: Fever >100.4 F Acetaminophen (Tylenol 325mg Tab) 650 mg PO Q4H PRN; Protocol PRN Reason: Fever >100.4 F Last Admin: 10/16/18 22:14 Dose: 650 mg Acetaminophen (Tylenol 325mg Tab) 650 mg PO Q4H PRN; Protocol PRN Reason: Pain, Mild (1-3) Last Admin: 10/14/18 08:12 Dose: 650 mg Aspirin (Ecotrin) 81 mg PO 0800 [facility]; Protocol Last Admin: 10/17/18 08:22 Dose: 81 mg Atorvastatin Calcium (Lipitor) 20 mg PO DIN [facility]; Protocol Last Admin: 10/16/18 18:44 Dose: 20 mg Clopidogrel Bisulfate (Plavix) 75 mg PO DAILY [facility]; Protocol Last Admin: 10/16/18 10:50 Dose: 75 mg Escitalopram Oxalate (Lexapro) 10 mg PO DAILY [facility]; Protocol Last Admin: 10/16/18 10:48 Dose: 10 mg Magnesium Oxide (Mag-Ox) 400 mg PO DAILY [facility]; Protocol Last Admin: 10/16/18 10:49 Dose: 400 mg Metoprolol Tartrate (Lopressor) 12.5 mg PO 0800,1800 [facility]; Protocol Last Admin: 10/17/18 08:21 Dose: 12.5 mg Multivitamins/Minerals (Therapeutic-M Tab) 1 tab PO DAILY [facility] Last Admin: 10/16/18 10:50 Dose: 1 tab Non-Formulary Medication (Celecoxib [Celebrex]) 200 mg PO DAILY [facility] Last Admin: 10/16/18 10:52 Dose: 200 mg Non-Formulary Medication (Dutasteride [Avodart]) 0.5 mg PO DAILY [facility] Last Admin: 10/16/18 10:53 Dose: 0.5 mg Nystatin (Nystatin Oral Susp) 5 ml PO QID [facility]; Protocol Last Admin: 10/16/18 21:03 Dose: 5 ml Pantoprazole Sodium (Protonix Ec Tab) 40 mg PO 0600 [facility]; Protocol Last Admin: 10/17/18 07:00 Dose: 40 mg Tamsulosin HCl (Flomax) 0.4 mg PO 1800 [facility]; Protocol Last Admin: 10/16/18 18:44 Dose: 0.4 mg Vitamin E (Vitamin E 400 Units Cap) 400 intlu PO DAILY [facility]; Protocol Last Admin: 10/16/18 10:49 Dose: 400 intlu - Constitutional Appears: No Acute Distress - Head Exam Head Exam: ATRAUMATIC, NORMAL INSPECTION, NORMOCEPHALIC - Eye Exam Eye Exam: EOMI, Normal appearance, PERRL Pupil Exam: NORMAL ACCOMODATION, PERRL - ENT Exam ENT Exam: Mucous Membranes Moist, Normal Exam - Neck Exam Neck Exam: Full ROM, Normal Inspection. absent: Lymphadenopathy - Respiratory Exam Respiratory Exam: Clear to Ausculation Bilateral, NORMAL BREATHING PATTERN - Cardiovascular Exam Cardiovascular Exam: REGULAR RHYTHM, +S1, +S2. absent: Murmur - GI/Abdominal Exam GI & Abdominal Exam: Soft, Normal Bowel Sounds. absent: Tenderness - Back Exam Back Exam: NORMAL INSPECTION - Neurological Exam Neurological Exam: Alert, Awake, CN II-XII Intact, Normal Gait, Oriented x3 - Psychiatric Exam Psychiatric exam: Normal Affect, Normal Mood - Skin Skin Exam: Dry, Intact, Normal Color, Warm Assessment and Plan - Assessment and Plan (Free Text) Assessment: 72yo male with history of CAD s/p stent, CABG, TIA, CVA x3, DM presents with altered mental status in the setting of nausea/vomiting/fevers concerning for infectious etiology. Pt off antibiotics and in TCU for rehab. S/P systemic inflammatory response syndrome, with no evidence of sepsis CAD S/P PCI CVA DM Plan continue to monitor off antibiotics since he is at risk for hospital-acquired infections <Antione Romano - Last Filed: 10/17/18 17:26> Objective - Vital Signs/Intake and Output Vital Signs (last 24 hours): Temp Pulse Resp BP Pulse Ox 97.5 F L 65 14 148/65 94 L 10/17/18 16:00 10/17/18 16:00 10/17/18 16:00 10/17/18 16:00 10/17/18 16:00 - Medications Medications: Current Medications Acetaminophen (Tylenol 650 Mg Supp) 650 mg RC Q4H PRN PRN Reason: Fever >100.4 F Acetaminophen (Tylenol 325mg Tab) 650 mg PO Q4H PRN; Protocol PRN Reason: Fever >100.4 F Last Admin: 10/16/18 22:14 Dose: 650 mg Acetaminophen (Tylenol 325mg Tab) 650 mg PO Q4H PRN; Protocol PRN Reason: Pain, Mild (1-3) Last Admin: 10/14/18 08:12 Dose: 650 mg Aspirin (Ecotrin) 81 mg PO 0800 [facility]; Protocol Last Admin: 10/17/18 08:22 Dose: 81 mg Atorvastatin Calcium (Lipitor) 20 mg PO DIN [facility]; Protocol Last Admin: 10/16/18 18:44 Dose: 20 mg Clopidogrel Bisulfate (Plavix) 75 mg PO DAILY [facility]; Protocol Last Admin: 10/17/18 10:07 Dose: 75 mg Escitalopram Oxalate (Lexapro) 10 mg PO DAILY [facility]; Protocol Last Admin: 10/17/18 10:07 Dose: 10 mg Magnesium Oxide (Mag-Ox) 400 mg PO DAILY [facility]; Protocol Last Admin: 10/17/18 10:07 Dose: 400 mg Metoprolol Tartrate (Lopressor) 12.5 mg PO 0800,1800 [facility]; Protocol Last Admin: 10/17/18 08:21 Dose: 12.5 mg Multivitamins/Minerals (Therapeutic-M Tab) 1 tab PO DAILY [facility] Last Admin: 10/17/18 10:07 Dose: 1 tab Non-Formulary Medication (Celecoxib [Celebrex]) 200 mg PO DAILY [facility] Last Admin: 10/17/18 10:04 Dose: 200 mg Non-Formulary Medication (Dutasteride [Avodart]) 0.5 mg PO DAILY [facility] Last Admin: 10/17/18 10:05 Dose: 0.5 mg Nystatin (Nystatin Oral Susp) 5 ml PO QID [facility]; Protocol Last Admin: 10/17/18 10:08 Dose: 5 ml Pantoprazole Sodium (Protonix Ec Tab) 40 mg PO 0600 [facility]; Protocol Last Admin: 10/17/18 07:00 Dose: 40 mg Tamsulosin HCl (Flomax) 0.4 mg PO 1800 [facility]; Protocol Last Admin: 10/16/18 18:44 Dose: 0.4 mg Vitamin E (Vitamin E 400 Units Cap) 400 intlu PO DAILY [facility]; Protocol Last Admin: 10/17/18 10:07 Dose: 400 intlu Assessment and Plan - Assessment and Plan (Free Text) Assessment: Infectious diseases Attending Physician Attestation Patient seen and examined, discussed with medical device sales representative. I have reviewed the patient's history of present illness, past medical, social, personal and family histories, pertinent physical exam findings, course so far in this hospital admission, pertinent laboratory and imaging results. I agree with the above findings, assessment and plan. In addition, will continue to monitor the patient off antibiotics - S/P SIRS without evidence of bacterial infection.
[2018-10-17] MEDS: Non Formulary Medication (Celecoxib [Celebrex] 200 MG) PO SCH (10:04)
[2018-10-17] MEDS: Magnesium Oxide 400 mg Tab UD PO SCH (10:07)
[2018-10-17] MEDS: Multivitamin With Minerals Tab PO SCH (10:07)
[2018-10-17] MEDS: Nystatin 100,000 Units/ml Oral Susp 5 ml UD PO SCH ×4 (10:08→21:34)
[2018-10-18] MEDS: Pantoprazole 40 mg EC Tab PO SCH (05:07)
[2018-10-18] MEDS: Non Formulary Medication (Celecoxib [Celebrex] 200 MG) PO SCH (11:13)
[2018-10-18] MEDS: Magnesium Oxide 400 mg Tab UD PO SCH (11:14)
[2018-10-18] MEDS: Nystatin 100,000 Units/ml Oral Susp 5 ml UD PO SCH ×4 (11:14→21:27)
[2018-10-18] MEDS: Multivitamin With Minerals Tab PO SCH (11:15)
--- NOTE | 2018-10-18 13:25 | CP.PCM.PN ---
<Kulwinder Braden - Last Filed: 10/18/18 13:25> Subjective - Date & Time of Evaluation Date of Evaluation: 10/18/18 Time of Evaluation: 10:45 - Subjective Subjective: ID Progress Note - Dr. Romano Patient was seen and examined at bedside. Pt tolerating PT, is AAOx3 and conversing appropriately. No fevers, no acute complaints at this time. No acute or adverse events overnight as per nursing staff. Objective - Vital Signs/Intake and Output Vital Signs (last 24 hours): Temp Pulse Resp BP Pulse Ox 98.1 F 63 18 120/63 95 10/18/18 06:00 10/18/18 08:11 10/18/18 06:00 10/18/18 08:11 10/18/18 06:00 - Medications Medications: Current Medications Acetaminophen (Tylenol 650 Mg Supp) 650 mg RC Q4H PRN PRN Reason: Fever >100.4 F Acetaminophen (Tylenol 325mg Tab) 650 mg PO Q4H PRN; Protocol PRN Reason: Fever >100.4 F Last Admin: 10/16/18 22:14 Dose: 650 mg Acetaminophen (Tylenol 325mg Tab) 650 mg PO Q4H PRN; Protocol PRN Reason: Pain, Mild (1-3) Last Admin: 10/14/18 08:12 Dose: 650 mg Aspirin (Ecotrin) 81 mg PO 0800 [facility]; Protocol Last Admin: 10/18/18 08:09 Dose: 81 mg Atorvastatin Calcium (Lipitor) 20 mg PO DIN [facility]; Protocol Last Admin: 10/17/18 18:15 Dose: 20 mg Clopidogrel Bisulfate (Plavix) 75 mg PO DAILY [facility]; Protocol Last Admin: 10/18/18 11:14 Dose: 75 mg Escitalopram Oxalate (Lexapro) 10 mg PO DAILY [facility]; Protocol Last Admin: 10/18/18 11:13 Dose: 10 mg Magnesium Oxide (Mag-Ox) 400 mg PO DAILY [facility]; Protocol Last Admin: 10/18/18 11:14 Dose: 400 mg Metoprolol Tartrate (Lopressor) 12.5 mg PO 0800,1800 [facility]; Protocol Last Admin: 10/18/18 08:11 Dose: 12.5 mg Multivitamins/Minerals (Therapeutic-M Tab) 1 tab PO DAILY [facility] Last Admin: 10/18/18 11:15 Dose: 1 tab Non-Formulary Medication (Celecoxib [Celebrex]) 200 mg PO DAILY [facility] Last Admin: 10/18/18 11:13 Dose: 200 mg Non-Formulary Medication (Dutasteride [Avodart]) 0.5 mg PO DAILY [facility] Last Admin: 10/18/18 11:11 Dose: 0.5 mg Nystatin (Nystatin Oral Susp) 5 ml PO QID [facility]; Protocol Last Admin: 10/18/18 11:14 Dose: 5 ml Pantoprazole Sodium (Protonix Ec Tab) 40 mg PO 0600 [facility]; Protocol Last Admin: 10/18/18 05:07 Dose: 40 mg Tamsulosin HCl (Flomax) 0.4 mg PO 1800 [facility]; Protocol Last Admin: 10/17/18 18:12 Dose: 0.4 mg Vitamin E (Vitamin E 400 Units Cap) 400 intlu PO DAILY [facility]; Protocol Last Admin: 10/18/18 11:16 Dose: 400 intlu - Constitutional Appears: No Acute Distress - Head Exam Head Exam: ATRAUMATIC, NORMAL INSPECTION, NORMOCEPHALIC - Eye Exam Eye Exam: EOMI, Normal appearance, PERRL - ENT Exam ENT Exam: Mucous Membranes Moist, Normal Exam - Neck Exam Neck Exam: Full ROM, Normal Inspection. absent: Lymphadenopathy - Respiratory Exam Respiratory Exam: Clear to Ausculation Bilateral, NORMAL BREATHING PATTERN - Cardiovascular Exam Cardiovascular Exam: REGULAR RHYTHM, +S1, +S2. absent: Murmur - GI/Abdominal Exam GI & Abdominal Exam: Soft, Normal Bowel Sounds. absent: Tenderness - Neurological Exam Neurological Exam: Alert, Awake, CN II-XII Intact, Normal Gait, Oriented x3 - Psychiatric Exam Psychiatric exam: Normal Affect, Normal Mood - Skin Skin Exam: Dry, Intact, Normal Color, Warm Assessment and Plan - Assessment and Plan (Free Text) Assessment: 72yo male with history of CAD s/p stent, CABG, TIA, CVA x3, DM presents with altered mental status in the setting of nausea/vomiting/fevers concerning for infectious etiology. Pt off antibiotics and in TCU for rehab. S/P systemic inflammatory response syndrome, with no evidence of sepsis CAD S/P PCI CVA DM Plan continue to monitor off antibiotics since he is at risk for hospital-acquired i nfections Seen reviewed and discussed with Dr. Romano <Anitone Romano S - Last Filed: 10/18/18 21:11> Objective - Vital Signs/Intake and Output Vital Signs (last 24 hours): Temp Pulse Resp BP Pulse Ox 97.9 F 60 18 140/65 95 10/18/18 16:00 18 18:52 10/18/18 16:00 10/18/18 18:52 10/18/18 16:00 - Medications Medications: Current Medications Acetaminophen (Tylenol 650 Mg Supp) 650 mg RC Q4H PRN PRN Reason: Fever >100.4 F Acetaminophen (Tylenol 325mg Tab) 650 mg PO Q4H PRN; Protocol PRN Reason: Fever >100.4 F Last Admin: 10/18/18 15:03 Dose: 650 mg Acetaminophen (Tylenol 325mg Tab) 650 mg PO Q4H PRN; Protocol PRN Reason: Pain, Mild (1-3) Last Admin: 10/14/18 08:12 Dose: 650 mg Aspirin (Ecotrin) 81 mg PO 0800 [facility]; Protocol Last Admin: 10/18/18 08:09 Dose: 81 mg Atorvastatin Calcium (Lipitor) 20 mg PO DIN [facility]; Protocol Last Admin: 10/18/18 18:51 Dose: 20 mg Clopidogrel Bisulfate (Plavix) 75 mg PO DAILY [facility]; Protocol Last Admin: 10/18/18 11:14 Dose: 75 mg Escitalopram Oxalate (Lexapro) 10 mg PO DAILY [facility]; Protocol Last Admin: 10/18/18 11:13 Dose: 10 mg Magnesium Oxide (Mag-Ox) 400 mg PO DAILY [facility]; Protocol Last Admin: 10/18/18 11:14 Dose: 400 mg Metoprolol Tartrate (Lopressor) 12.5 mg PO 0800,1800 [facility]; Protocol Last Admin: 10/18/18 18:52 Dose: 12.5 mg Multivitamins/Minerals (Therapeutic-M Tab) 1 tab PO DAILY [facility] Last Admin: 10/18/18 11:15 Dose: 1 tab Non-Formulary Medication (Celecoxib [Celebrex]) 200 mg PO DAILY [facility] Last Admin: 10/18/18 11:13 Dose: 200 mg Non-Formulary Medication (Dutasteride [Avodart]) 0.5 mg PO DAILY [facility] Last Admin: 10/18/18 11:11 Dose: 0.5 mg Nystatin (Nystatin Oral Susp) 5 ml PO QID [facility]; Protocol Last Admin: 10/18/18 18:56 Dose: 5 ml Pantoprazole Sodium (Protonix Ec Tab) 40 mg PO 0600 [facility]; Protocol Last Admin: 10/18/18 05:07 Dose: 40 mg Tamsulosin HCl (Flomax) 0.4 mg PO 1800 [facility]; Protocol Last Admin: 10/18/18 18:51 Dose: 0.4 mg Vitamin E (Vitamin E 400 Units Cap) 400 intlu PO DAILY [facility]; Protocol Last Admin: 10/18/18 11:16 Dose: 400 intlu Assessment and Plan - Assessment and Plan (Free Text) Assessment: Infectious diseases Attending Physician Attestation Patient seen and examined, discussed with regional medical director. I have reviewed the patient's history of present illness, past medical, social, personal and family histories, pertinent physical exam findings, course so far in this hospital admission, pertinent laboratory and imaging results. I agree with the above findings, assessment and plan. In addition, will continue to monitor off antibiotics - initially presented with SIRS but no evidence of bacterial sepsis or infection.
[2018-10-19] MEDS: Pantoprazole 40 mg EC Tab PO SCH (07:00)
[2018-10-19] MEDS: Non Formulary Medication (Celecoxib [Celebrex] 200 MG) PO SCH (09:27)
[2018-10-19] MEDS: Multivitamin With Minerals Tab PO SCH (09:29)
[2018-10-19] MEDS: Magnesium Oxide 400 mg Tab UD PO SCH (09:29)
[2018-10-19] MEDS: Nystatin 100,000 Units/ml Oral Susp 5 ml UD PO SCH (09:29)
--- NOTE | 2018-10-19 10:43 | PN ---
DATE: 10/19/2018 SUBJECTIVE: The patient is in bed, in no acute distress, nontoxic. PHYSICAL EXAMINATION: VITAL SIGNS: Temperature is 98, blood pressure is 140/60, respiratory rate of 18, heart rate of 82. Examination of HEENT is unremarkable. NECK: Supple. LUNGS: Have decreased breath sounds. HEART: Normal S1, S2. ABDOMEN: Soft. LABORATORY EXAMINATION: Reviewed. Medication reveals the patient is on no antibiotics. ASSESSMENT AND PLAN: A 72-year-old male who was seen earlier today in 319 with coronary artery disease, status post stent placement and coronary artery bypass graft, transient ischemic attack, cerebrovascular accident, diabetes mellitus, presents with altered mental status in setting of nausea, vomiting, fevers, currently now off antibiotics, afebrile. The patient is at risk for developing nosocomial infections. Osmany Botello MD
[2018-10-19 11:04] VITALS: BP 148/77; PULSE 82; RESP 14; TEMP 97.7; O2SAT 98
== END 2018-10-19 13:20 | disposition home or self-care (01) | DRG 866 ==
LOC: TRCU 20:29
PROVIDERS: ADMIT Internal Medicine; ATTEND Internal Medicine
PROC: F07Z9FZ Gait Training/Functional Ambulation Treatment using Assistive, Adaptive, Supportive or Protective Equipment (ICD-10-PCS; principal; 2018-10-12)
PROC: F07M6ZZ Therapeutic Exercise Treatment of Musculoskeletal System - Whole Body (ICD-10-PCS; 2018-10-12)
PROC: F08Z2ZZ Grooming/Personal Hygiene Treatment (ICD-10-PCS; 2018-10-12)
PROC: F08Z1ZZ Dressing Techniques Treatment (ICD-10-PCS; 2018-10-12)
PROC: F08Z0ZZ Bathing/Showering Techniques Treatment (ICD-10-PCS; 2018-10-12)
PROC: F08Z4ZZ Home Management Treatment (ICD-10-PCS; 2018-10-12)
DX: B34.9 Viral infection, unspecified (principal); R65.10 Systemic inflammatory response syndrome (SIRS) of non-infectious origin without acute organ dysfunction; E11.9 Type 2 diabetes mellitus without complications; I25.10 Atherosclerotic heart disease of native coronary artery without angina pectoris; J44.9 Chronic obstructive pulmonary disease, unspecified; K21.9 Gastro-esophageal reflux disease without esophagitis; N40.0 Benign prostatic hyperplasia without lower urinary tract symptoms; Z86.73 Personal history of transient ischemic attack (TIA), and cerebral infarction without residual deficits; Z95.1 Presence of aortocoronary bypass graft; Z95.5 Presence of coronary angioplasty implant and graft; R41.82 Altered mental status, unspecified